=== PATIENT | female | born 1985 | race Caucasian/White ===

== ENCOUNTER 2016-07-07 22:04 | Emergency (ER) | payer OTHER ==
[2016-07-07] MEDS ORDERED: SODIUM CHLORIDE 0.9% 1,000 ML IV STA (22:34)
[2016-07-07 22:59] LABS: Appearance,Urine Clear (Clear); Bilirubin,Urine Negative (Negative); Glucose,Urine (UA) Negative (Negative); Ketones,Urine Negative (Negative); Leukocyte Esterase,Urine Negative (Negative); Nitrite,Urine Negative (Negative); PH, Urine 6.5 (5.0-8.0); Protein,Urine Negative (Negative); Specific Gravity,Urine 1.002 (1.001-1.035); UA Billing (MACRO vs. MICRO) CHEM; Urobilinogen,Urine <2.0 mg/dL (<2.0)
[2016-07-07 23:05] LABS: ALT 24 U/L (9-52); AST 12 U/L (14-36); Alkaline Phosphatase 91 U/L (38-126); Anion Gap 10 mmol/L; Blood Urea Nitrogen 8 mg/dL (7-17); Carbon Dioxide 22 mmol/L (22-30); Chloride 106 mmol/L (98-107); Glucose 98 mg/dL (74-99); Non-African American GFR(MDRD) >60 (>60 ml/min/1.73 sqM); Potassium 3.6 mmol/L (3.5-5.1); Sodium 138 mmol/L (137-145); Total Bilirubin 0.8 mg/dL (0.2-1.3); Total Protein 7.4 g/dL (6.3-8.2)
--- NOTE | 2016-07-07 23:05 | XR ---
EXAM: XR Chest, 2 Views CLINICAL HISTORY: Reason: syncope TECHNIQUE: Frontal and lateral views of the chest. COMPARISON: None available FINDINGS: Lungs: Lungs are clear. Pleural space: No evidence of pleural effusion or pneumothorax. Heart: Heart size is within normal limits. Mediastinum: Mediastinal structures are within normal limits. Bones/joints: Image bony thorax is unremarkable. IMPRESSION: No evidence of active chest disease.
[2016-07-07 23:09] LABS: Glucose,Whole Blood 91 mg/dL (75-99)
[2016-07-07 23:13] LABS: Partial Thromboplastin Time 25.4 sec (22.0-30.0); Prothrombin Time 10.2 sec (9.0-12.0)
--- NOTE | 2016-07-07 23:16 | ED ---
General Adult HPI - General Chief complaint: Syncope Stated complaint: Syncope Time Seen by Provider: 07/07/16 22:10 Source: EMS, RN notes reviewed Mode of arrival: EMS Limitations: no limitations - History of Present Illness Initial comments: Patient is a 30-year-old female presents emergency room for evaluation of possible syncopal episode. Patient states she was diagnosed with strep throat yesterday. Patient states she was placed on amoxicillin. Patient states took her first dose of amoxicillin today. Patient states she's had amoxicillin in the past had no reaction to it. Patient states the last thing she remembers was giving her son a bottle and waking up on the bed. Patient's boyfriend states that he was trying to get a hold of patient and did not hear from her for a half hour. Patient's boyfriend states he came over and patient was on the bed asleep. Patient's boyfriend states he tried to wake patient up and was unable to until he wipped her with a wet cloth which woke her up. Patient's boyfriend and states that he called EMS and patient began to slightly seize for about 1 minute. Patient states that she had an incident of blacking out and seizing about 10 years ago when she was hypoglycemic. Patient states she has a history of hypoglycemia. Patient states because she has not been feeling that well, she has not been eating a lot today. Patient denies nausea or vomiting. Patient states she is having 7 out of 10 headache. Patient denies changes in vision. Patient denies chest pain or shortness of breath. Patient states she is having severe throat pain. Patient denies fevers or chills. Patient denies abdominal pain. - Related Data Home Medications Medication Instructions Recorded Confirmed Dextroamphetamine/Amphetamine 20 mg PO BID 04/21/15 07/07/16 [Adderall] Sertraline [Zoloft] 100 mg PO DAILY 04/21/15 07/07/16 Levothyroxine Sodium [Synthroid] 50 mcg PO DAILY 12/19/15 07/07/16 Amoxicillin 1,000 mg PO DAILY 07/07/16 07/07/16 Allergies Allergy/AdvReac Type Severity Reaction Status Date / Time No Known Allergies Allergy Verified 07/07/16 22:26 Review of Systems ROS Statement: Those systems with pertinent positive or pertinent negative responses have been documented in the HPI. ROS Other: All systems not noted in ROS Statement are negative. Past Medical History Past Medical History: Thyroid Disorder Additional Past Medical History / Comment(s): hypoglycema. History of Any Multi-Drug Resistant Organisms: None Reported Past Surgical History: Section Past Psychological History: ADD/ADHD, Bipolar, Depression Smoking Status: Former smoker Past Alcohol Use History: Occasional Past Drug Use History: None Reported - Past Family History Father Family Medical History: Diabetes Mellitus General Exam - General Exam Comments Initial Comments: Sitting in exam room, no acute distress. Limitations: no limitations General appearance: alert, in no apparent distress Head exam: Present: atraumatic, normocephalic, normal inspection Eye exam: Present: normal appearance Expanded Mouth exam: Present: normal external inspection Teeth exam: Present: normal inspection Throat exam: tonsillar erythema, tonsillar exudate Neck exam: Present: normal inspection Respiratory exam: Present: normal lung sounds bilaterally. Absent: respiratory distress Cardiovascular Exam: Present: regular rate, normal rhythm, normal heart sounds Extremities exam: Present: normal inspection Back exam: Present: normal inspection Neurological exam: Present: alert, oriented X3, CN II-XII intact, normal gait Expanded Neurological exam: Present: inattentive Patient oriented to: Present: person, place, time Speech: Present: fluid speech Cranial nerves: EOM's Intact: Normal, Facial Sensation: Normal Sensory exam: Upper Extremity Light Touch: Normal, Lower Extremity Light Touch: Normal Motor strength exam: RUE: 5, LUE: 5, RLE: 5, LLE: 5 Eye Response: (4) open spontaneously Motor Response: (6) obeys commands Verbal Response: (5) oriented Psychiatric exam: Present: normal affect, normal mood Skin exam: Present: warm, dry, intact, normal color. Absent: rash Course Vital Signs 07/07/16 07/08/16 22:12 01:04 Temperature 98.5 F 99.2 F Pulse Rate 88 98 Respiratory 14 18 Rate Blood Pressure 115/55 101/53 O2 Sat by Pulse 96 96 Oximetry EKG Findings - EKG Comments: EKG Findings:: Normal sinus rhythm, ventricular rate 90 bpm, MA interval 154 ms , QRS duration 88 ms, QT/QTC 364/445 ms Medical Decision Making - Medical Decision Making Patient is a 30-year-old female presents emergency room for evaluation. Patient does appear to have elevated WBC. Patient was recently diagnosed with strep throat yesterday and is currently on antibiotics. Patient is afebrile. Other labs show no concerning findings. Patient states she is feeling better. Will discharge patient home and have her follow-up with her primary care provider. Patient states she has someone to watch her overnight. Patient states she understands everything that was discussed with her. Return parameters discussed. Case discussed with Dr. Gore. - Lab Data Result diagrams: 07/07/16 22:45 07/07/16 22:45 Lab Results 07/07/16 07/07/16 07/07/16 Range/Units 22:45 22:45 22:45 WBC 27.1 H* (3.8-10.6) k/uL RBC 4.69 (3.80-5.40) m/uL Hgb 13.2 (11.4-16.0) gm/dL Hct 40.2 (34.0-46.0) % MCV 85.6 (80.0-100.0) fL MCH 28.1 (25.0-35.0) pg MCHC 32.8 (31.0-37.0) g/dL RDW 13.4 (11.5-15.5) % Plt Count 277 (150-450) k/uL PT (9.0-12.0) sec INR (<1.1) APTT (22.0-30.0) sec Sodium 138 (137-145) mmol/L Potassium 3.6 (3.5-5.1) mmol/L Chloride 106 (98-107) mmol/L Carbon Dioxide 22 (22-30) mmol/L Anion Gap 10 mmol/L BUN 8 (7-17) mg/dL Creatinine 0.52 (0.52-1.04) mg/dL Est GFR (MDRD) Af Amer >60 (>60 ml/min/1.73 sqM) Est GFR (MDRD) Non-Af >60 (>60 ml/min/1.73 sqM) Glucose 98 (74-99) mg/dL POC Glucose (mg/dL) (75-99) mg/dL POC Glu Personal Counselor ID Calcium 9.0 (8.4-10.2) mg/dL Total Bilirubin 0.8 (0.2-1.3) mg/dL AST 12 L (14-36) U/L ALT 24 (9-52) U/L Alkaline Phosphatase 91 (38-126) U/L Total Creatine Kinase 33 (30-135) U/L CK-MB (CK-2) <0.2 (0.0-2.4) ng/mL CK-MB (CK-2) Rel Index Troponin I <0.012 (0.000-0.034) ng/mL Total Protein 7.4 (6.3-8.2) g/dL Albumin 3.8 (3.5-5.0) g/dL Urine Color Urine Appearance (Clear) Urine pH (5.0-8.0) Ur Specific [place] (1.001-1.035) Urine Protein (Negative) Urine Glucose (UA) (Negative) Urine Ketones (Negative) Urine Blood (Negative) Urine Nitrite (Negative) Urine Bilirubin (Negative) Urine Urobilinogen (<2.0) mg/dL Ur Leukocyte Esterase (Negative) 07/07/16 07/07/16 07/07/16 Range/Units 22:45 22:45 23:08 WBC (3.8-10.6) k/uL RBC (3.80-5.40) m/uL Hgb (11.4-16.0) gm/dL Hct (34.0-46.0) % MCV (80.0-100.0) fL MCH (25.0-35.0) pg MCHC (31.0-37.0) g/dL RDW (11.5-15.5) % Plt Count (150-450) k/uL PT 10.2 (9.0-12.0) sec INR 1.0 (<1.1) APTT 25.4 (22.0-30.0) sec Sodium (137-145) mmol/L Potassium (3.5-5.1) mmol/L Chloride (98-107) mmol/L Carbon Dioxide (22-30) mmol/L Anion Gap mmol/L BUN (7-17) mg/dL Creatinine (0.52-1.04) mg/dL Est GFR (MDRD) Af Amer (>60 ml/min/1.73 sqM) Est GFR (MDRD) Non-Af (>60 ml/min/1.73 sqM) Glucose (74-99) mg/dL POC Glucose (mg/dL) 91 (75-99) mg/dL POC Glu Personal Counselor ID Christiane Lincoln Calcium (8.4-10.2) mg/dL Total Bilirubin (0.2-1.3) mg/dL AST (14-36) U/L ALT (9-52) U/L Alkaline Phosphatase (38-126) U/L Total Creatine Kinase (30-135) U/L CK-MB (CK-2) (0.0-2.4) ng/mL CK-MB (CK-2) Rel Index Troponin I (0.000-0.034) ng/mL Total Protein (6.3-8.2) g/dL Albumin (3.5-5.0) g/dL Urine Color Colorless Urine Appearance Clear (Clear) Urine pH 6.5 (5.0-8.0) Ur Specific [place] 1.002 (1.001-1.035) Urine Protein Negative (Negative) Urine Glucose (UA) Negative (Negative) Urine Ketones Negative (Negative) Urine Blood Negative (Negative) Urine Nitrite Negative (Negative) Urine Bilirubin Negative (Negative) Urine Urobilinogen <2.0 (<2.0) mg/dL Ur Leukocyte Esterase Negative (Negative) - Radiology Data Radiology results: report reviewed, image reviewed Disposition Clinical Impression: Leukocytosis, Strep throat, Fainting spell Disposition: HOME SELF-CARE Condition: Good Instructions: Strep Throat (ED) Additional Instructions: Continue taking antibiotics as directed. Saltwater gargles. Take Tylenol or Motrin as needed for pain/fever. Please follow up with primary care provider in 1-2 days. If any new symptom arises or symptoms worsen, return to ER as soon as possible. Referrals: Khari Macario MD [Primary Care Provider] - 1-2 days Time of Disposition: 00:51
[2016-07-07 23:24] LABS: Creatine Kinase 33 U/L (30-135)
[2016-07-07 23:37] LABS: Creatine Kinase MB <0.2 ng/mL (0.0-2.4); Troponin I <0.012 ng/mL (0.000-0.034)
[2016-07-08 00:15] LABS: CHCM 32.8; HCT 40.2 % (34.0-46.0); HGB 13.2 gm/dL (11.4-16.0); MCH 28.1 pg (25.0-35.0); MCHC 32.8 g/dL (31.0-37.0); MCV 85.6 fL (80.0-100.0); Mean Platelet Volume 7.4; RBC 4.69 m/uL (3.80-5.40); RDW 13.4 % (11.5-15.5); WBC (Perox) 26.97
[2016-07-08 00:28] LABS: WBC 27.1 k/uL (3.8-10.6)
[2016-07-08 01:05] VITALS: BP 101/53; PULSE 98; RESP 18; TEMP 99.2
[2016-07-08 02:54] LABS: Add Differential Manual Differential
[2016-07-08 02:59] LABS: Band Neutrophils % 17.5 %; Metamyelocytes % 0.5 %; Nucleated Red Blood Cells 0 /100 WBC (0-0); Total Cells Counted 200
[2016-07-08 03:00] LABS: Toxic Granulation Present
[2016-07-08 03:01] LABS: Toxic Vacuolation Present
[2016-07-08 03:02] LABS: Polychromasia Present
== END 2016-07-08 01:05 | disposition home or self-care (01) ==
LOC: EC 22:04
DX: D72.829 Elevated white blood cell count, unspecified (principal); R55 Syncope and collapse; E07.9 Disorder of thyroid, unspecified; F90.9 Attention-deficit hyperactivity disorder, unspecified type; F31.9 Bipolar disorder, unspecified; Z87.891 Personal history of nicotine dependence; Z79.899 Other long term (current) drug therapy
CPT/HCPCS: 36415; 71020; 80053; 81003; 82550; 82553; 84484; 85025; 85610; 85730; 93005; 96360; 96361; 99285

== ENCOUNTER 2016-10-19 17:32 | Emergency (ER) | payer OTHER ==
[2016-10-19 17:45] VITALS: RESP 20
--- NOTE | 2016-10-19 18:06 | ED ---
General Adult HPI - General Chief complaint: Psychiatric Symptoms Stated complaint: sleepless for 4 days Time Seen by Provider: 10/19/16 17:42 Source: patient, RN notes reviewed Mode of arrival: EMS Limitations: no limitations - History of Present Illness Initial comments: 31 yo female presents to the ER with cc depression and suicidal ideation. Patient states she's been having increased depression. Patient states for the last month or so her symptoms have been worsening. Patient states about a week ago her doctor started her on Abilify and she feels as if her depression is even worsening but not she is also having suicidal ideation. Patient denies any plan. Patient states that she does not think that she actually hurt herself but she is having thoughts which concerned her. Patient states she is also having racing thoughts that keeping her up at night she's been unable to sleep for the past 3 or 4 nights. Patient states that she is not currently having any other. Patient denies any other complaints.Patient denies any recent fever, chills, shortness of breath, chest pain, back pain, abdominal pain , nausea vomiting, numbness or tingling, dysuria or hematuria, constipation or diarrhea, headaches or visual changes, or any other current symptoms. - Related Data Home Medications Medication Instructions Recorded Confirmed Levothyroxine Sodium [Synthroid] 50 mcg PO DAILY 12/19/15 10/19/16 ARIPiprazole [Abilify] 5 mg PO DAILY 10/19/16 10/19/16 Dextroamphetamine/Amphetamine 20 mg PO BID 10/19/16 10/19/16 [Adderall] Norgestimate-Ethinyl Estradiol 1 tab PO DAILY 10/19/16 10/19/16 [Ortho Tri-Cyclen 28 Tablet] Sertraline [Zoloft] 100 mg PO BID 10/19/16 10/19/16 Allergies Allergy/AdvReac Type Severity Reaction Status Date / Time No Known Allergies Allergy Verified 10/19/16 18:22 Review of Systems ROS Statement: Those systems with pertinent positive or pertinent negative responses have been documented in the HPI. ROS Other: All systems not noted in ROS Statement are negative. Past Medical History Past Medical History: Thyroid Disorder Additional Past Medical History / Comment(s): hypoglycema. History of Any Multi-Drug Resistant Organisms: None Reported Past Surgical History: Section Past Psychological History: ADD/ADHD, Bipolar, Depression Smoking Status: Current every day smoker Past Alcohol Use History: Occasional Past Drug Use History: Marijuana - Past Family History Father Family Medical History: Diabetes Mellitus General Exam Limitations: no limitations General appearance: alert Head exam: Present: atraumatic, normocephalic, normal inspection ENT exam: Present: normal exam, mucous membranes moist Neck exam: Present: normal inspection. Absent: tenderness, meningismus, lymphadenopathy Respiratory exam: Present: normal lung sounds bilaterally. Absent: respiratory distress, wheezes, rales, rhonchi, stridor Cardiovascular Exam: Present: regular rate, normal rhythm, normal heart sounds. Absent: systolic murmur, diastolic murmur, rubs, gallop, clicks Neurological exam: Present: alert, oriented X3 Skin exam: Present: warm, dry, intact, normal color. Absent: rash Course Vital Signs 10/19/16 17:42 Temperature 97.6 F Pulse Rate 93 Respiratory 20 Rate Blood Pressure 136/80 O2 Sat by Pulse 99 Oximetry Medical Decision Making - Medical Decision Making 31 female presents to the emergency department with a chief complaint of suicidal ideation and depression. At this time the patient does not appear to be suffering from any acute medical. This time the patient is cleared to be evaluated by psychiatry. At this time patient was evaluated. They did do a medication adjustment for the patient per the psychiatrist's request to cut the Abilify in half and take it in the morning. At this time the patient is reviewed this plan she does contract to safety questions have been answered. She will be discharged. - Lab Data Lab Results 10/19/16 Range/Units 18:30 Urine Opiates Screen Not Detected (NotDetected) Ur Oxycodone Screen Not Detected (NotDetected) Urine Methadone Screen Not Detected (NotDetected) Ur Propoxyphene Screen Not Detected (NotDetected) Ur Barbiturates Screen Not Detected (NotDetected) U Tricyclic Antidepress Not Detected (NotDetected) Ur Phencyclidine Scrn Not Detected (NotDetected) Ur Amphetamines Screen Detected H (NotDetected) U Methamphetamines Scrn Not Detected (NotDetected) U Benzodiazepines Scrn Not Detected (NotDetected) Urine Cocaine Screen Not Detected (NotDetected) U Marijuana (THC) Screen Detected H (NotDetected) Disposition Clinical Impression: Depression Disposition: HOME SELF-CARE Condition: Stable Instructions: Depression (ED) Additional Instructions: Please use medication as discussed. Please follow up with family doctor if symptoms have not improved over the next two days. Please return to the emergency room if your symptoms increase or worsen or for any other concerns. Take half your prescribed dose in the morning. If he developed any suicidal or homicidal ideation please return to the emergency department immediately. Referrals: Khari Macario MD [Primary Care Provider] - 1-2 days Time of Disposition: 20:24
[2016-10-19 20:40] VITALS: BP 121/50; PULSE 74; TEMP 98.5
== END 2016-10-19 20:40 | disposition home or self-care (01) ==
LOC: EC 17:32
DX: F31.9 Bipolar disorder, unspecified (principal); R45.851 Suicidal ideations; F90.9 Attention-deficit hyperactivity disorder, unspecified type; E07.9 Disorder of thyroid, unspecified; F17.200 Nicotine dependence, unspecified, uncomplicated; Z79.3 Long term (current) use of hormonal contraceptives; Z79.899 Other long term (current) drug therapy
CPT/HCPCS: 80306; 82075; 99284

== ENCOUNTER 2016-10-27 12:37 | Emergency (ER) | payer OTHER ==
[2016-10-27 12:42] VITALS: BP 134/80; PULSE 98; RESP 18; TEMP 97.9
[2016-10-27] MEDS ORDERED: methylPREDNISolone SOD SUCCI 125 MG/2 ML VIAL IM STA (12:53)
[2016-10-27] MEDS ORDERED: KETOROLAC 60 MG/2 ML VIAL IM STA (12:53)
[2016-10-27] MEDS ORDERED: ORPHENADRINE 30 MG/ML 2 ML VIAL IM STA (12:53)
--- NOTE | 2016-10-27 12:58 | ED ---
General Adult HPI - General Chief complaint: Extremity Problem,Nontraumatic Stated complaint: ankle injury Time Seen by Provider: 10/27/16 12:45 Source: patient, RN notes reviewed Mode of arrival: wheelchair Limitations: no limitations - History of Present Illness Initial comments: 31 yo female presents to the ER with cc of shooting pain down left leg and numbness tingling sensation to the left foot. Patient states that this started this might just kept getting worse. Patient states she has had this pain to the left foot and leg and she was concerned. Patient states that she does have a history of low back pain and bulging disc. Patient denies any falls traumas or injuries. Patient denies any other symptoms. Patient has a loss by bladder function or any saddle anesthesia. Patient states has had some back pain to the lower area on the left. Patient denies any recent fever, chills, shortness of breath, chest pain, abdominal pain, nausea vomiting, dysuria or hematuria, constipation or diarrhea, headaches or visual changes, or any other current symptoms. - Related Data Home Medications Medication Instructions Recorded Confirmed Levothyroxine Sodium [Synthroid] 50 mcg PO DAILY 12/19/15 10/19/16 ARIPiprazole [Abilify] 5 mg PO DAILY 10/19/16 10/19/16 Dextroamphetamine/Amphetamine 20 mg PO BID 10/19/16 10/19/16 [Adderall] Norgestimate-Ethinyl Estradiol 1 tab PO DAILY 10/19/16 10/19/16 [Ortho Tri-Cyclen 28 Tablet] Sertraline [Zoloft] 100 mg PO BID 10/19/16 10/19/16 Previous Rx's Medication Instructions Recorded Ibuprofen [Motrin] 600 mg PO Q6HR PRN #20 tab 10/27/16 Orphenadrine [Norflex] 100 mg PO Q12H #10 tablet.er 10/27/16 predniSONE 50 mg PO DAILY #5 tab 10/27/16 Allergies Allergy/AdvReac Type Severity Reaction Status Date / Time No Known Allergies Allergy Verified 10/27/16 12:42 Review of Systems ROS Statement: Those systems with pertinent positive or pertinent negative responses have been documented in the HPI. ROS Other: All systems not noted in ROS Statement are negative. Past Medical History Past Medical History: Thyroid Disorder Additional Past Medical History / Comment(s): hypoglycema. History of Any Multi-Drug Resistant Organisms: None Reported Past Surgical History: Section Past Psychological History: ADD/ADHD, Bipolar, Depression Smoking Status: Current every day smoker Past Alcohol Use History: Occasional Past Drug Use History: Marijuana - Past Family History Father Family Medical History: Diabetes Mellitus General Exam Limitations: no limitations General appearance: alert, in no apparent distress Head exam: Present: atraumatic, normocephalic, normal inspection Neck exam: Present: normal inspection. Absent: tenderness, meningismus, lymphadenopathy Respiratory exam: Present: normal lung sounds bilaterally. Absent: respiratory distress, wheezes, rales, rhonchi, stridor Cardiovascular Exam: Present: regular rate, normal rhythm, normal heart sounds. Absent: systolic murmur, diastolic murmur, rubs, gallop, clicks Back exam: Present: normal inspection, full ROM, tenderness, paraspinal tenderness (left sdied). Absent: rash noted Expanded Back exam: Absent: saddle anesthesia Back exam: Positive Straight Leg Raise: Left Neurological exam: Present: alert, oriented X3 Psychiatric exam: Present: normal affect, normal mood Skin exam: Present: warm, dry, intact, normal color. Absent: rash Course Vital Signs 10/27/16 12:41 Temperature 97.9 F Pulse Rate 98 Respiratory 18 Rate Blood Pressure 134/80 O2 Sat by Pulse 97 Oximetry Medical Decision Making - Medical Decision Making 31-year-old female presents emergency Department chief complaint of back pain associated with numbness and tingling to the left foot with a positive straight leg raise. at this time CT has been reviewed. all questions have been answered. pt will be discharged. given follow up to ortho for continued care. Disposition Clinical Impression: Bulging disc, Left leg paresthesias Disposition: HOME SELF-CARE Condition: Stable Instructions: Lower Back Exercises (ED), Low Back Strain (ED) Additional Instructions: Please use medication as discussed. Please follow up with family doctor if symptoms have not improved over the next two days. Please return to the emergency room if your symptoms increase or worsen or for any other concerns. Prescriptions: Ibuprofen [Motrin] 600 mg PO Q6HR PRN #20 tab PRN Reason: Pain Orphenadrine [Norflex] 100 mg PO Q12H #10 tablet.er predniSONE 50 mg PO DAILY #5 tab Referrals: Khari Macario MD [Primary Care Provider] - 1-2 days Solo Walsh DO [Doctor of Osteopathic Medicine] - 1-2 days Time of Disposition: 13:33
--- NOTE | 2016-10-27 13:25 | CT ---
EXAMINATION TYPE: CT lumbar spine wo con DATE OF EXAM: 10/27/2016 COMPARISON: NONE HISTORY: Left ankle swelling. Back pain for [address] DLP: 972 mGycm CONTRAST: None TECHNIQUE: CT of the lumbar spine is performed on a spiral scan at 3 mm thick sections. Reconstructed images are performed in the coronal and sagittal planes. FINDINGS: Vertebral body alignment is normal. No focal disc herniations are evident. Mild disc bulge with anterior thecal sac contact is present L4-5. Some posterior disc space narrowing is present L5-S 1. No spinal canal stenosis or neural foraminal stenosis present. Remaining disc height and vertebral body heights are preserved. IMPRESSION: 1. Minimal disc bulge L4-5. 2. Very mild posterior disc space narrowing L5-S1
== END 2016-10-27 13:41 | disposition home or self-care (01) ==
LOC: EC 12:37
DX: M51.26 Other intervertebral disc displacement, lumbar region (principal); R20.2 Paresthesia of skin; E07.9 Disorder of thyroid, unspecified; F31.9 Bipolar disorder, unspecified; F90.9 Attention-deficit hyperactivity disorder, unspecified type; F17.200 Nicotine dependence, unspecified, uncomplicated; Z79.3 Long term (current) use of hormonal contraceptives; Z79.899 Other long term (current) drug therapy
CPT/HCPCS: 99283; 96372 ×3; 72131; J2360; J2930; J1885

== ENCOUNTER 2016-11-16 12:44 | Emergency (ER) | payer OTHER ==
[2016-11-16 13:08] LABS: Glucose,Whole Blood 83 mg/dL (75-99)
[2016-11-16] MEDS ORDERED: diphenhydrAMINE 50 MG/ML 1 ML VIAL IVP STA (13:14)
--- NOTE | 2016-11-16 13:26 | ED ---
Neuro HPI - General Stated Complaint: ankle swelling Time Seen by Provider: 11/16/16 13:14 - History of Present Illness Is the patient presenting with stroke symptoms?: Yes Last Known Well Date: 11/16/16 Last Known Well Time: 13:00 Initial Comments: This is a 31-year-old female to history of depression and smoking history who presents emergency department for the chief complaint of ankle swelling however just as she was getting wheeled back to the emergency department she developed a left-sided facial droop. Last known normal was around 1 PM. She states that the left side of her face feels "funny". She states that it feels numb. She denies history of stroke. Denies any headache. She states that she did start a new medications, Abilify, 2 weeks ago however has not had any adverse reactions. She denies taking any other new medications today. She admits to feeling generally fatigued and having some left-sided lower extremity weakness as well. She states that her left leg also feels numb area she denies any history of injury. No other complaints. - Related Data Home Medications: Home Medications Medication Instructions Recorded Confirmed Levothyroxine Sodium [Synthroid] 50 mcg PO DAILY 12/19/15 10/19/16 ARIPiprazole [Abilify] 5 mg PO DAILY 10/19/16 10/19/16 Dextroamphetamine/Amphetamine 20 mg PO BID 10/19/16 10/19/16 [Adderall] Norgestimate-Ethinyl Estradiol 1 tab PO DAILY 10/19/16 10/19/16 [Ortho Tri-Cyclen 28 Tablet] Sertraline [Zoloft] 100 mg PO BID 10/19/16 10/19/16 Previous Rx's Medication Instructions Recorded Ibuprofen [Motrin] 600 mg PO Q6HR PRN #20 tab 10/27/16 Orphenadrine [Norflex] 100 mg PO Q12H #10 tablet.er 10/27/16 predniSONE 50 mg PO DAILY #5 tab 10/27/16 Allergies/Adverse Reactions: Allergies Allergy/AdvReac Type Severity Reaction Status Date / Time No Known Allergies Allergy Verified 10/27/16 12:42 Review of Systems ROS Statement: Those systems with pertinent positive or pertinent negative responses have been documented in the HPI. ROS Other: All systems not noted in ROS Statement are negative. General Exam - General Exam Comments Initial Comments: Constitutional: Awake alert Appears comfortable Head: Normocephalic atraumatic Eyes: no conjunctival injection No scleral icterus EOMI Neck: No JVD Supple Heart: Regular rate rhythm normal S1-S2 no murmurs Lungs: Clear to auscultation bilaterally No wheezing No rales Abdomen: Soft nondistended nontender Extremities: Non edematous DP pulses intact Radial pulses intact Neuro: A&Ox3 the patient has a noticeable left-sided facial droop however when palpating over the left jaw it feels like the muscle is twitching. At times the facial droop seems to dissipate. She is able to smile and it seems symmetrical. Her tongue is deviated to the left however she is able to move it to the right. Extract the muscles are intact. Visual baeza are intact. 5 out of 5 strength in upper extremities. She has 4-5 strength in left lower extremity and 5 out of 5 strength in right lower chrie. She claims to have left lower extremities decreased sensation when compared to the right. Also has decreased sensation along the left jaw. Psych: Appropriate mood and affect Stroke MDM - Lab Data Result diagrams: 11/16/16 13:21 11/16/16 13:21 Lab Results 11/16/16 11/16/16 11/16/16 Range/Units 13:05 13:21 13:21 WBC 11.3 H (3.8-10.6) k/uL RBC 4.68 (3.80-5.40) m/uL Hgb 13.6 (11.4-16.0) gm/dL Hct 39.8 (34.0-46.0) % MCV 85.1 (80.0-100.0) fL MCH 29.0 (25.0-35.0) pg MCHC 34.1 (31.0-37.0) g/dL RDW 13.0 (11.5-15.5) % Plt Count 305 (150-450) k/uL Neutrophils % 65 % Lymphocytes % 28 % Monocytes % 4 % Eosinophils % 2 % Basophils % 0 % Neutrophils # 7.3 (1.3-7.7) k/uL Lymphocytes # 3.1 (1.0-4.8) k/uL Monocytes # 0.5 (0-1.0) k/uL Eosinophils # 0.2 (0-0.7) k/uL Basophils # 0.0 (0-0.2) k/uL PT (9.0-12.0) sec INR (<1.2) APTT (22.0-30.0) sec Sodium (137-145) mmol/L Potassium (3.5-5.1) mmol/L Chloride (98-107) mmol/L Carbon Dioxide (22-30) mmol/L Anion Gap mmol/L BUN (7-17) mg/dL Creatinine (0.52-1.04) mg/dL Est GFR (MDRD) Af Amer (>60 ml/min/1.73 sqM) Est GFR (MDRD) Non-Af (>60 ml/min/1.73 sqM) Glucose (74-99) mg/dL POC Glucose (mg/dL) 83 (75-99) mg/dL POC Glu Property Appraiser ID Marielos Arteaga Calcium (8.4-10.2) mg/dL Total Bilirubin (0.2-1.3) mg/dL AST (14-36) U/L ALT (9-52) U/L Alkaline Phosphatase (38-126) U/L Creatine Kinase (30-135) U/L CK-MB (CK-2) 0.8 (0.0-2.4) ng/mL Troponin I (0.000-0.034) ng/mL NT-Pro-B Natriuret Pep pg/mL Total Protein (6.3-8.2) g/dL Albumin (3.5-5.0) g/dL HCG, Quant mIU/mL 11/16/16 11/16/16 11/16/16 Range/Units 13:21 13:21 13:21 WBC (3.8-10.6) k/uL RBC (3.80-5.40) m/uL Hgb (11.4-16.0) gm/dL Hct (34.0-46.0) % MCV (80.0-100.0) fL MCH (25.0-35.0) pg MCHC (31.0-37.0) g/dL RDW (11.5-15.5) % Plt Count (150-450) k/uL Neutrophils % % Lymphocytes % % Monocytes % % Eosinophils % % Basophils % % Neutrophils # (1.3-7.7) k/uL Lymphocytes # (1.0-4.8) k/uL Monocytes # (0-1.0) k/uL Eosinophils # (0-0.7) k/uL Basophils # (0-0.2) k/uL PT 9.3 (9.0-12.0) sec INR 0.9 (<1.2) APTT 22.2 (22.0-30.0) sec Sodium 141 (137-145) mmol/L Potassium 4.0 (3.5-5.1) mmol/L Chloride 107 (98-107) mmol/L Carbon Dioxide 25 (22-30) mmol/L Anion Gap 9 mmol/L BUN 10 (7-17) mg/dL Creatinine 0.60 (0.52-1.04) mg/dL Est GFR (MDRD) Af Amer >60 (>60 ml/min/1.73 sqM) Est GFR (MDRD) Non-Af >60 (>60 ml/min/1.73 sqM) Glucose 77 (74-99) mg/dL POC Glucose (mg/dL) (75-99) mg/dL POC Glu Property Appraiser ID Calcium 9.2 (8.4-10.2) mg/dL Total Bilirubin 0.3 (0.2-1.3) mg/dL AST 15 (14-36) U/L ALT 29 (9-52) U/L Alkaline Phosphatase 89 (38-126) U/L Creatine Kinase (30-135) U/L CK-MB (CK-2) (0.0-2.4) ng/mL Troponin I (0.000-0.034) ng/mL NT-Pro-B Natriuret Pep 36 pg/mL Total Protein 7.8 (6.3-8.2) g/dL Albumin 4.1 (3.5-5.0) g/dL HCG, Quant <2.4 mIU/mL 11/16/16 11/16/16 Range/Units 13:38 13:38 WBC (3.8-10.6) k/uL RBC (3.80-5.40) m/uL Hgb (11.4-16.0) gm/dL Hct (34.0-46.0) % MCV (80.0-100.0) fL MCH (25.0-35.0) pg MCHC (31.0-37.0) g/dL RDW (11.5-15.5) % Plt Count (150-450) k/uL Neutrophils % % Lymphocytes % % Monocytes % % Eosinophils % % Basophils % % Neutrophils # (1.3-7.7) k/uL Lymphocytes # (1.0-4.8) k/uL Monocytes # (0-1.0) k/uL Eosinophils # (0-0.7) k/uL Basophils # (0-0.2) k/uL PT (9.0-12.0) sec INR (<1.2) APTT (22.0-30.0) sec Sodium (137-145) mmol/L Potassium (3.5-5.1) mmol/L Chloride (98-107) mmol/L Carbon Dioxide (22-30) mmol/L Anion Gap mmol/L BUN (7-17) mg/dL Creatinine (0.52-1.04) mg/dL Est GFR (MDRD) Af Amer (>60 ml/min/1.73 sqM) Est GFR (MDRD) Non-Af (>60 ml/min/1.73 sqM) Glucose (74-99) mg/dL POC Glucose (mg/dL) (75-99) mg/dL POC Glu Property Appraiser ID Calcium (8.4-10.2) mg/dL Total Bilirubin (0.2-1.3) mg/dL AST (14-36) U/L ALT (9-52) U/L Alkaline Phosphatase (38-126) U/L Creatine Kinase 71 (30-135) U/L CK-MB (CK-2) (0.0-2.4) ng/mL Troponin I <0.012 (0.000-0.034) ng/mL NT-Pro-B Natriuret Pep pg/mL Total Protein (6.3-8.2) g/dL Albumin (3.5-5.0) g/dL HCG, Quant mIU/mL - NIH Stroke Scale 1a. Level of Consciousness: (0) alert 1b. LOC Questions: (0) answers correctly 1c. LOC Commands: (0) performs tasks correctly 2. Best Gaze: (0) normal 3. Visual: (0) no visual loss 4. Facial Palsy: (1) minor paralysis 5a. Motor Arm Left: (0) no drift 5b. Motor Arm Right: (0) no drift 6a. Motor Leg Left: (1) drift 6b. Motor Leg Right: (0) no drift 7. Limb Ataxia: (0) absent 8. Sensory: (1) mild/moderate sensory loss 9. Best Language: (0) no aphasia 10. Dysarthria: (1) mild/moderate dysarthria 11. Extinction/Inattention: (0) no abnormality Past Medical History Past Medical History: Thyroid Disorder Additional Past Medical History / Comment(s): hypoglycema. History of Any Multi-Drug Resistant Organisms: None Reported Past Surgical History: Section Past Psychological History: ADD/ADHD, Bipolar, Depression Smoking Status: Current every day smoker Past Alcohol Use History: Occasional Past Drug Use History: Marijuana - Past Family History Father Family Medical History: Diabetes Mellitus Course Vital Signs 11/16/16 13:34 Temperature 97.7 F Pulse Rate 97 Respiratory 18 Rate Blood Pressure 138/78 O2 Sat by Pulse 97 Oximetry - Reevaluation(s) Reevaluation #1: 11/16/16 13:37 EKG showing normal sinus rhythm with a rate of 90. No ST segment changes or T- wave inversions. QTC is 450. Other intervals normal. No ectopy. Reevaluation #2: 11/16/16 13:40 I spoke with the stroke neurologist who recommended that the patient get a CTA. Patient already went for CT however we'll send her back down for CTA. Reevaluation #3: 11/16/16 14:08 Currently awaiting neurologist evaluation through stroke robot. Reevaluation #4: 11/16/16 14:22 Patient evaluated by the stroke neurologist Dr. Martinez who recommends TPA and transfer. NIH at this time is unchanged at 4. Reevaluation #5: 11/16/16 14:52 TPA bolus given. INH is unchanged. Patient accepted to [facility] by Dr. Martinez. Patient currently stable for transfer. Critical Care Time Critical Care Time: Yes Total Critical Care Time: 35 Critical Care Time: Critical care time spent examining the patient and reviewing old records. Ordering lab work and imaging. Reviewing the results of lab work and imaging. Speaking with the stroke neurologist coming up with the plan. Reexamination of the patient. Rediscussion with the stroke neurologist and neurologic monitoring throughout her ED stay. Also arranging transfer of the patient. Disposition Clinical Impression: CVA (cerebral vascular accident) Disposition: OTHER INSTITUTION NOT DEFINED Condition: Critical Referrals: Khari Macario MD [Primary Care Provider] - 1-2 days - Out of Hospital Transfer - Req. Specs Out of Hospital Transfer - Requested Specifics: Neurological ICU (Praful Baez)
[2016-11-16] MEDS ORDERED: SODIUM CHLORIDE 0.9% 1,000 ML IV ONE (13:32)
[2016-11-16] MEDS ORDERED: RX INFO: IV CONTRAST WAS GIVEN 1 EACH MISC MISCELLANE PRN (13:32)
[2016-11-16 13:42] VITALS: BP 138/78; PULSE 97; RESP 18; TEMP 97.7
[2016-11-16 13:55] LABS: Basophils % (A) 0 %; CH 27.9; CHCM 32.9; Eosinophils # (A) 0.2 k/uL (0-0.7); Eosinophils % (A) 2 %; HCT 39.8 % (34.0-46.0); HDW 2.41; HGB 13.6 gm/dL (11.4-16.0); Luc # (Auto) 0.15; Luc % (Auto) 1; Lymphocytes # (A) 3.1 k/uL (1.0-4.8); Lymphocytes % (A) 28 %; MCHC 34.1 g/dL (31.0-37.0); MCV 85.1 fL (80.0-100.0); Mean Platelet Volume 7.5; Monocytes # (A) 0.5 k/uL (0-1.0); Monocytes % (A) 4 %; Neutrophils # (A) 7.3 k/uL (1.3-7.7); Neutrophils % (A) 65 %; RBC 4.68 m/uL (3.80-5.40); WBC 11.3 k/uL (3.8-10.6); WBC (Perox) 10.56
[2016-11-16 13:57] LABS: ALT 29 U/L (9-52); AST 15 U/L (14-36); Alkaline Phosphatase 89 U/L (38-126); Anion Gap 9 mmol/L; Blood Urea Nitrogen 10 mg/dL (7-17); Calcium 9.2 mg/dL (8.4-10.2); Carbon Dioxide 25 mmol/L (22-30); Chloride 107 mmol/L (98-107); Glucose 77 mg/dL (74-99); Non-African American GFR(MDRD) >60 (>60 ml/min/1.73 sqM); Sodium 141 mmol/L (137-145); Total Bilirubin 0.3 mg/dL (0.2-1.3); Total Protein 7.8 g/dL (6.3-8.2)
--- NOTE | 2016-11-16 13:58 | CT ---
EXAMINATION TYPE: CT brain wo con for TPA DATE OF EXAM: 11/16/2016 COMPARISON: NONE HISTORY: Neurological deficits. CT DLP: 1177 mGycm Automated exposure control for dose reduction was used. FINDINGS: Central structures are midline. There is no evidence of hydrocephalus. No acute focal lesion, mass ef fect or midline shift is seen. I do not see evidence of intracranial blood. Visualized portions of the paranasal sinuses and mastoids are clear. IMPRESSION: NORMAL CT SCAN OF THE BRAIN.
[2016-11-16 14:09] LABS: INR 0.9 (<1.2); Partial Thromboplastin Time 22.2 sec (22.0-30.0); Prothrombin Time 9.3 sec (9.0-12.0)
[2016-11-16] MEDS ORDERED: tPA (Alteplase) PER PHARMACY 1 EACH MISC MISCELLANE PRN (14:22)
[2016-11-16] MEDS ORDERED: ALTEPLASE 81 MG in EMPTY BAG 1 BAG IV STA (14:23)
[2016-11-16] MEDS ORDERED: ALTEPLASE BOLUS 9 MG in EMPTY SYRINGE 1 SYR IV STA (14:23)
--- NOTE | 2016-11-16 15:12 | CT ---
EXAMINATION TYPE: CT angio head neck DATE OF EXAM: 11/16/2016 HISTORY: Neuro Deficits COMPARISON: NONE CT DLP: 484 mGycm. Automated Exposure Control for Dose Reduction was Utilized. TECHNIQUE: CTA scan of the neck is performed with IV Contrast, patient injected with 100 ml mL of Om nipaque 350, axial images are obtained, coronal and sagittal reformatted images are reviewed. Three-D reconstructed images are created on an independent workstation and reviewed. FINDINGS: Carotid/Vascular Structures: There is a normal three-vessel arch. The carotid arteries are well-opaci fied bilaterality. The left vertebral artery is dominant. The right vertebral artery is diminutive. C ervical Rhoades vessels are well opacified. There is an anterior communicating artery identified. Ther e is no AVM, aneurysm, or significant stenosis. Other: Visualized portions of the brain and cervical spine are unremarkable. IMPRESSION: No significant abnormality is seen.
== END 2016-11-16 15:18 | disposition other institution (70) ==
LOC: EC 12:44
DX: I63.9 Cerebral infarction, unspecified (principal); E07.9 Disorder of thyroid, unspecified; F31.9 Bipolar disorder, unspecified; F90.9 Attention-deficit hyperactivity disorder, unspecified type; F17.200 Nicotine dependence, unspecified, uncomplicated; Z79.3 Long term (current) use of hormonal contraceptives; Z79.899 Other long term (current) drug therapy
CPT/HCPCS: 99285; 36415; 93005; 83880; 80053; 82550; 82553; 84484; 85025; 85610; 85730; 84702; 70496; 70450; 70498; 37195; J2997; Q9967

== ENCOUNTER 2017-01-08 11:46 | Emergency (ER) | payer OTHER ==
[2017-01-08 12:04] VITALS: TEMP 97.2
[2017-01-08] MEDS ORDERED: KETOROLAC 60 MG/2 ML VIAL IM STA (12:25)
--- NOTE | 2017-01-08 12:29 | ED ---
General Adult HPI - General Chief complaint: Neuro Symptoms/Deficit Stated complaint: both hand tingling/numbness Time Seen by Provider: 01/08/17 12:00 Source: patient, RN notes reviewed Mode of arrival: ambulatory Limitations: no limitations - History of Present Illness Initial comments: This is a 31-year-old female presents emergency Department complaining of bilateral tingling in the hands. She states it's been ongoing for months but it is intermittent. Patient states a little bit worse this morning so she came to the emergency department. Patient states she's had no injury to her neck or hands. Patient states the tingling tends to be more in the first few fingers and it's a little bit worse on the left hand on the right. Patient denies any pain or wrist tenderness. - Related Data Home Medications Medication Instructions Recorded Confirmed Levothyroxine Sodium [Synthroid] 50 mcg PO DAILY 12/19/15 01/08/17 Dextroamphetamine/Amphetamine 20 mg PO BID 10/19/16 01/08/17 [Adderall] Sertraline [Zoloft] 100 mg PO BID 10/19/16 01/08/17 Allergies Allergy/AdvReac Type Severity Reaction Status Date / Time No Known Allergies Allergy Verified 01/08/17 12:12 Review of Systems ROS Statement: Those systems with pertinent positive or pertinent negative responses have been documented in the HPI. ROS Other: All systems not noted in ROS Statement are negative. Past Medical History Past Medical History: Thyroid Disorder Additional Past Medical History / Comment(s): hypoglycema. History of Any Multi-Drug Resistant Organisms: None Reported Past Surgical History: Section Past Psychological History: ADD/ADHD, Bipolar, Depression Smoking Status: Current every day smoker Past Alcohol Use History: None Reported Past Drug Use History: Marijuana - Past Family History Father Family Medical History: Diabetes Mellitus General Exam - General Exam Comments Initial Comments: GENERAL Patient is well-developed and well-nourished. Patient is in mild distress. EYES Patient's pupils are equal and round. Extraocular motion is intact SKIN Unremarkable NEURO The patient is alert and oriented 3 PYSCH Patient has normal interpersonal interactions. MUSCULOSKELETAL Patient has good sensation in all fingers however she states her subjective tingling in the thumb and first and second finger. Patient had no tingling when I tapped on her wrists or and doing the Phalen test Limitations: no limitations Course Vital Signs 01/08/17 12:02 Temperature 97.2 F L Pulse Rate 86 Respiratory 18 Rate Blood Pressure 132/63 O2 Sat by Pulse 97 Oximetry Disposition Clinical Impression: Degenerative disc disease, cervical, Radiculopathy Disposition: HOME SELF-CARE Condition: Good Additional Instructions: Patient is a follow-up with Dr. Chirinos as soon as possible. Patient states Motrin 600 mg every 6 hours. Referrals: Solo Walsh DO [Doctor of Osteopathic Medicine] - 1-2 days Time of Disposition: 14:14
--- NOTE | 2017-01-08 13:34 | XR ---
Cervical spine HISTORY: Bilateral hand numbness 5 views of the cervical spine, comparison CT 11/16/2016 Loss of the normal cervical lordosis may be due to muscle spasm. Cervical vertebral bodies show prese rved height. Minimal retrolisthesis grade 1 C5-6, there is associated spondylosis and loss of disc he ight. Minimal retrolisthesis grade 1 C6-7. Lateral extension of endplate disc complex at C4-5 and C5- 6 likely causes foraminal encroachment. Bilateral foraminal encroachment may also be present at C3-4. Midline posterior fusion anomaly at C1. IMPRESSION: Degenerative disc disease and additional findings above.
--- NOTE | 2017-01-08 14:07 | CT ---
EXAMINATION TYPE: CT brain wo con DATE OF EXAM: 01/08/2017 COMPARISON: CT brain from November 16, 2016 HISTORY: Bilateral arm pain and numbness CT DLP: 1159 mGycm. Automated Exposure Control for Dose Reduction was Utilized. TECHNIQUE: CT scan of the head is performed without contrast. FINDINGS: There is no acute intracranial hemorrhage, mass effect, or midline shift identified. The ventricles and sulci are within normal limits in size. The globes are intact and the visualized sin uses are clear. IMPRESSION: No acute intracranial hemorrhage, mass effect, or midline shift is seen. No significant change from prior.
[2017-01-08 14:16] VITALS: BP 105/54; PULSE 77; RESP 16
== END 2017-01-08 14:27 | disposition home or self-care (01) ==
LOC: EC 11:46
DX: M50.11 Cervical disc disorder with radiculopathy, high cervical region (principal); F31.9 Bipolar disorder, unspecified; F90.9 Attention-deficit hyperactivity disorder, unspecified type; E07.9 Disorder of thyroid, unspecified; F17.200 Nicotine dependence, unspecified, uncomplicated
CPT/HCPCS: 72050; 70450; 99284; 96372; J1885

== ENCOUNTER 2017-08-15 11:38 | Emergency (ER) | payer OTHER ==
[2017-08-15 11:46] VITALS: TEMP 97.9
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
[2017-08-15] MEDS ORDERED: KETOROLAC 60 MG/2 ML VIAL IM STA (13:04)
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
[2017-08-15 13:50] VITALS: BP 104/66; PULSE 64; RESP 14
== END 2017-08-15 13:50 | disposition home or self-care (01) ==
LOC: EC 11:38
DX: M54.9 Dorsalgia, unspecified (principal); M54.2 Cervicalgia; E07.9 Disorder of thyroid, unspecified; F90.9 Attention-deficit hyperactivity disorder, unspecified type; F31.9 Bipolar disorder, unspecified; F17.200 Nicotine dependence, unspecified, uncomplicated; Z79.899 Other long term (current) drug therapy; V43.52XA Car driver injured in collision with other type car in traffic accident, initial encounter; Y92.009 Unspecified place in unspecified non-institutional (private) residence as the place of occurrence of the external cause
CPT/HCPCS: 72072; 72100; 72125; 70450; 99284; 96372; J1885

== ENCOUNTER 2017-08-25 15:31 | Emergency (ER) | payer OTHER ==
[2017-08-25 15:37] VITALS: RESP 18
[2017-08-25 16:45] LABS: Basophils % (A) 0 %; Eosinophils # (A) 0.4 k/uL (0-0.7); Eosinophils % (A) 4 %; HCT 37.5 % (34.0-46.0); HGB 12.8 gm/dL (11.4-16.0); Lymphocytes # (A) 2.5 k/uL (1.0-4.8); Lymphocytes % (A) 26 %; MCH 28.5 pg (25.0-35.0); MCHC 34.3 g/dL (31.0-37.0); MCV 83.2 fL (80.0-100.0); Mean Platelet Volume 6.9; Monocytes # (A) 0.2 k/uL (0-1.0); Monocytes % (A) 2 %; Neutrophils # (A) 6.6 k/uL (1.3-7.7); Neutrophils % (A) 67 %; Platelet Count 291 k/uL (150-450); RBC 4.51 m/uL (3.80-5.40); RDW 13.8 % (11.5-15.5); WBC 9.8 k/uL (3.8-10.6)
[2017-08-25 16:54] LABS: Anion Gap 9 mmol/L; Blood Urea Nitrogen 10 mg/dL (7-17); Calcium 8.9 mg/dL (8.4-10.2); Carbon Dioxide 27 mmol/L (22-30); Chloride 106 mmol/L (98-107); Glucose 120 mg/dL (74-99); Potassium 4.2 mmol/L (3.5-5.1); Sodium 142 mmol/L (137-145)
[2017-08-25 17:03] LABS: Amphetamine Screen,Urine Detected (NotDetected); Barbiturate Screen,Urine Not Detected (NotDetected); Benzodiazepines Screen,Urine Not Detected (NotDetected); Cocaine Screen,Urine Detected (NotDetected); Methadone Screen, Urine Not Detected (NotDetected); Opiate Screen,Urine Not Detected (NotDetected); Oxycodone Screen, Urine Not Detected (NotDetected); Phencyclidine Screen,Urine Not Detected (NotDetected); Tricyclic Antidepressant,Urine Not Detected (NotDetected); Urn Cannabinoid Scrn Detected (NotDetected)
--- NOTE | 2017-08-25 17:49 | ED ---
Psych HPI - General Source: patient Mode of arrival: ambulatory <Roldan Padron - Last Filed: 08/25/17 17:46> <Salazar Mack - Last Filed: 08/25/17 19:09> - General Chief Complaint: Psychiatric Symptoms Stated Complaint: Depressed & Swollen Feet Time Seen by Provider: 08/25/17 15:59 - History of Present Illness Initial Comments: 31 years old female complaining about worsening of the depression she has a history of depression since he was 12 years old she denies any alcohol but she does admit to him some street drugs lately and she has attempted suicide in the past most recent was a week and half ago when she attempted to hang herself at home she didn't come to the ER for that extend depression has been worse since she has a plan she was walking front of oncoming traffic. She also complained about swelling of the ankles no trauma to the ankles she denies any headache no neck stiffness no chest pain or shortness of breath no abdominal pain no frequency urgency dysuria (Roldan Padron) - Related Data Home Medications Medication Instructions Recorded Confirmed Levothyroxine Sodium [Synthroid] 50 mcg PO DAILY 12/19/15 08/25/17 Dextroamphetamine/Amphetamine 20 mg PO BID 10/19/16 08/25/17 [Adderall] Sertraline [Zoloft] 100 mg PO BID 10/19/16 08/25/17 Previous Rx's Medication Instructions Recorded Cyclobenzaprine [Flexeril] 10 mg PO TID #10 tab 08/15/17 Ibuprofen [Motrin] 600 mg PO Q6HR PRN #30 day 08/15/17 Allergies Allergy/AdvReac Type Severity Reaction Status Date / Time No Known Allergies Allergy Verified 08/25/17 16:19 Review of Systems ROS Other: All systems not noted in ROS Statement are negative. <Roldan Padron - Last Filed: 08/25/17 17:46> ROS Other: All systems not noted in ROS Statement are negative. <Salazar Mack - Last Filed: 08/25/17 19:09> ROS Statement: Those systems with pertinent positive or pertinent negative responses have been documented in the HPI. Past Medical History Past Medical History: Thyroid Disorder Additional Past Medical History / Comment(s): hypoglycema. History of Any Multi-Drug Resistant Organisms: None Reported Past Surgical History: Section Past Psychological History: ADD/ADHD, Bipolar, Depression Smoking Status: Current every day smoker Past Alcohol Use History: None Reported Past Drug Use History: Marijuana - Past Family History Father Family Medical History: Diabetes Mellitus <Roldan Padron - Last Filed: 08/25/17 17:46> General Exam Limitations: no limitations <Roldan Padron - Last Filed: 08/25/17 17:46> <MackrAike - Last Filed: 08/25/17 19:09> - General Exam Comments Initial Comments: General: The patient is awake and alert, in no distress, and does not appear acutely ill. Skin: Skin is warm and dry and no rashes or lesions are noted. Eye: Pupils are equal, round and reactive to light, extra-ocular movements are intact; there is normal conjunctiva bilaterally. Ears, nose, mouth and throat: There are moist mucous membranes and no oral lesions. Neck: The neck is supple, there is no tenderness or JVD. Cardiovascular: There is a regular rate and rhythm. No murmur, rub or gallop is appreciated. Respiratory: To auscultation bilateral, no wheezing no rhonchi no distress respiratory vital noticed Gastrointestinal: Soft, non-distended, non-tender abdomen without masses or organomegaly noted. There is no rebound or guarding present. Bowel sounds are unremarkable. Back: There is no tenderness to palpation in the midline. There is no obvious deformity. Musculoskeletal: Normal ROM, no tenderness, There is no pedal edema. There is no calf tenderness or swelling. No cords were appreciated. I did not notice any pitting edema or dependent edema around the ankles no calf tenderness noticed no findings suggestive of DVT noticed over the lower extremities Neurological: CN II-XII intact, Cranial nerves III through XII are intact. There are no obvious motor or sensory deficits. Coordination appears grossly intact. Speech is normal. Psychiatric: Cooperative, seems depressed and admits to suicidal attempt week and a half ago she tried to hang herself now she has a plan she wants to walk in front of oncoming traffic (Roldan Padron) Vital Signs 08/25/17 15:34 Temperature 98.2 F Pulse Rate 97 Respiratory 18 Rate Blood Pressure 110/70 O2 Sat by Pulse 97 Oximetry Medical Decision Making - Lab Data Result diagrams: 08/25/17 16:20 08/25/17 16:20 <Roldan Padron - Last Filed: 08/25/17 17:46> - Lab Data Result diagrams: 08/25/17 16:20 08/25/17 16:20 <FrederickTreySalazar - Last Filed: 08/25/17 19:09> - Medical Decision Making EPS came down and evaluated the patient he determined that the patient could go home with follow-up. (Salazar Mack) - Lab Data Lab Results 08/25/17 08/25/17 08/25/17 Range/Units 16:20 16:20 16:20 WBC (3.8-10.6) k/uL RBC (3.80-5.40) m/uL Hgb (11.4-16.0) gm/dL Hct (34.0-46.0) % MCV (80.0-100.0) fL MCH (25.0-35.0) pg MCHC (31.0-37.0) g/dL RDW (11.5-15.5) % Plt Count (150-450) k/uL Neutrophils % % Lymphocytes % % Monocytes % % Eosinophils % % Basophils % % Neutrophils # (1.3-7.7) k/uL Lymphocytes # (1.0-4.8) k/uL Monocytes # (0-1.0) k/uL Eosinophils # (0-0.7) k/uL Basophils # (0-0.2) k/uL Sodium 142 (137-145) mmol/L Potassium 4.2 (3.5-5.1) mmol/L Chloride 106 (98-107) mmol/L Carbon Dioxide 27 (22-30) mmol/L Anion Gap 9 mmol/L BUN 10 (7-17) mg/dL Creatinine 0.63 (0.52-1.04) mg/dL Est GFR (CKD-EPI)AfAm >90 (>60 ml/min/1.73 sqM) Est GFR (CKD-EPI)NonAf >90 (>60 ml/min/1.73 sqM) Glucose 120 H (74-99) mg/dL Calcium 8.9 (8.4-10.2) mg/dL Urine HCG, Qual Not Detected (Not Detectd) Urine Opiates Screen Not Detected (NotDetected) Ur Oxycodone Screen Not Detected (NotDetected) Urine Methadone Screen Not Detected (NotDetected) Ur Propoxyphene Screen Not Detected (NotDetected) Ur Barbiturates Screen Not Detected (NotDetected) U Tricyclic Antidepress Not Detected (NotDetected) Ur Phencyclidine Scrn Not Detected (NotDetected) Ur Amphetamines Screen Detected H (NotDetected) U Methamphetamines Scrn Detected H (NotDetected) U Benzodiazepines Scrn Not Detected (NotDetected) Urine Cocaine Screen Detected H (NotDetected) U Marijuana (THC) Screen Detected H (NotDetected) 08/25/17 Range/Units 16:20 WBC 9.8 (3.8-10.6) k/uL RBC 4.51 (3.80-5.40) m/uL Hgb 12.8 (11.4-16.0) gm/dL Hct 37.5 (34.0-46.0) % MCV 83.2 (80.0-100.0) fL MCH 28.5 (25.0-35.0) pg MCHC 34.3 (31.0-37.0) g/dL RDW 13.8 (11.5-15.5) % Plt Count 291 (150-450) k/uL Neutrophils % 67 % Lymphocytes % 26 % Monocytes % 2 % Eosinophils % 4 % Basophils % 0 % Neutrophils # 6.6 (1.3-7.7) k/uL Lymphocytes # 2.5 (1.0-4.8) k/uL Monocytes # 0.2 (0-1.0) k/uL Eosinophils # 0.4 (0-0.7) k/uL Basophils # 0.0 (0-0.2) k/uL Sodium (137-145) mmol/L Potassium (3.5-5.1) mmol/L Chloride (98-107) mmol/L Carbon Dioxide (22-30) mmol/L Anion Gap mmol/L BUN (7-17) mg/dL Creatinine (0.52-1.04) mg/dL Est GFR (CKD-EPI)AfAm (>60 ml/min/1.73 sqM) Est GFR (CKD-EPI)NonAf (>60 ml/min/1.73 sqM) Glucose (74-99) mg/dL Calcium (8.4-10.2) mg/dL Urine HCG, Qual (Not Detectd) Urine Opiates Screen (NotDetected) Ur Oxycodone Screen (NotDetected) Urine Methadone Screen (NotDetected) Ur Propoxyphene Screen (NotDetected) Ur Barbiturates Screen (NotDetected) U Tricyclic Antidepress (NotDetected) Ur Phencyclidine Scrn (NotDetected) Ur Amphetamines Screen (NotDetected) U Methamphetamines Scrn (NotDetected) U Benzodiazepines Scrn (NotDetected) Urine Cocaine Screen (NotDetected) U Marijuana (THC) Screen (NotDetected) Disposition <Roldan Padron - Last Filed: 08/25/17 17:46> Is patient prescribed a controlled substance at d/c from ED?: No Time of Disposition: 19:09 <Salazar Mack - Last Filed: 08/25/17 19:09> Clinical Impression: Situational depression, Polypharmacy Disposition: HOME SELF-CARE Condition: Good Instructions: Depression (ED) Referrals: Khari Macario MD [Primary Care Provider] - 1-2 days
[2017-08-25 19:21] VITALS: BP 124/74; PULSE 59; TEMP 98
== END 2017-08-25 19:20 | disposition home or self-care (01) ==
LOC: EC 15:31
DX: F43.21 Adjustment disorder with depressed mood (principal); T50.992A Poisoning by other drugs, medicaments and biological substances, intentional self-harm, initial encounter; R45.851 Suicidal ideations; E07.9 Disorder of thyroid, unspecified; F31.30 Bipolar disorder, current episode depressed, mild or moderate severity, unspecified; F90.9 Attention-deficit hyperactivity disorder, unspecified type; F17.200 Nicotine dependence, unspecified, uncomplicated; Z79.899 Other long term (current) drug therapy
CPT/HCPCS: 36415; 80048; 80306; 81025; 82075; 85025; 99284

== ENCOUNTER 2017-09-14 02:27 | Emergency (ER) | payer OTHER ==
[2017-09-14] MEDS ORDERED: IPRATROPIUM-ALBUTEROL 3 ML NEB INHALATION STA (03:35)
[2017-09-14 03:49] VITALS: PULSE 78
[2017-09-14] MEDS ORDERED: cefTRIAXone 1,000 MG VIAL (IM USE) IM STA (04:27)
[2017-09-14] MEDS ORDERED: methylPREDNISolone SOD SUCCI 125 MG/2 ML VIAL IM ONE (04:27)
--- NOTE | 2017-09-14 05:25 | XR ---
EXAMINATION TYPE: XR chest 2V DATE OF EXAM: 09/14/2017 COMPARISON: 07/07/2016 HISTORY: Cough TECHNIQUE: Frontal and lateral views of the chest are obtained. FINDINGS: Heart and mediastinum are normal. Lungs are clear. Diaphragm is normal. Bony thorax appear s normal. IMPRESSION: Normal chest. No change.
--- NOTE | 2017-09-14 05:26 | ED ---
URI HPI - General Chief Complaint: Upper Respiratory Infection Stated Complaint: ENT Time Seen by Provider: 09/14/17 03:00 Source: patient, RN notes reviewed, old records reviewed Mode of arrival: ambulatory Limitations: no limitations - Related Data Home Medications Medication Instructions Recorded Confirmed Levothyroxine Sodium [Synthroid] 50 mcg PO DAILY 12/19/15 09/14/17 Dextroamphetamine/Amphetamine 20 mg PO BID 10/19/16 09/14/17 [Adderall] Sertraline [Zoloft] 100 mg PO BID 10/19/16 09/14/17 Previous Rx's Medication Instructions Recorded Cyclobenzaprine [Flexeril] 10 mg PO TID #10 tab 08/15/17 Albuterol Inhaler [Ventolin Hfa 1 - 2 puff INHALATION RT-Q6H PRN 09/14/17 Inhaler] #1 inhaler Levofloxacin [Levaquin] 750 mg PO DAILY 5 Days #5 tab 09/14/17 Promethazine/Dextromethorphan 5 ml PO TID #120 ml 09/14/17 [Phenergan DM Syrup] predniSONE 50 mg PO DAILY #5 tablet 09/14/17 Allergies Allergy/AdvReac Type Severity Reaction Status Date / Time No Known Allergies Allergy Verified 08/25/17 16:19 Review of Systems ROS Statement: Those systems with pertinent positive or pertinent negative responses have been documented in the HPI. ROS Other: All systems not noted in ROS Statement are negative. Past Medical History Past Medical History: Thyroid Disorder Additional Past Medical History / Comment(s): hypoglycema. History of Any Multi-Drug Resistant Organisms: None Reported Past Surgical History: Section Past Psychological History: ADD/ADHD, Bipolar, Depression Smoking Status: Current every day smoker Past Alcohol Use History: None Reported Past Drug Use History: Marijuana - Past Family History Father Family Medical History: Diabetes Mellitus General Exam Limitations: no limitations General appearance: alert, in no apparent distress Head exam: Present: atraumatic, normocephalic, normal inspection Eye exam: Present: normal appearance, PERRL, EOMI. Absent: scleral icterus, conjunctival injection, periorbital swelling ENT exam: Present: normal exam, mucous membranes moist Neck exam: Present: normal inspection. Absent: tenderness, meningismus, lymphadenopathy Respiratory exam: Present: wheezes. Absent: normal lung sounds bilaterally, respiratory distress, rales, rhonchi, stridor Cardiovascular Exam: Present: regular rate, normal rhythm, normal heart sounds. Absent: systolic murmur, diastolic murmur, rubs, gallop, clicks GI/Abdominal exam: Present: soft, normal bowel sounds. Absent: distended, tenderness, guarding, rebound, rigid Extremities exam: Present: normal inspection, full ROM, normal capillary refill. Absent: tenderness, pedal edema, joint swelling, calf tenderness Back exam: Present: normal inspection Neurological exam: Present: alert, oriented X3, CN II-XII intact Psychiatric exam: Present: normal affect, normal mood Skin exam: Present: warm, dry, intact, normal color. Absent: rash Course Vital Signs 09/14/17 09/14/17 09/14/17 02:59 03:43 03:48 Temperature 98.0 F Pulse Rate 79 88 78 Respiratory 20 Rate Blood Pressure 130/74 O2 Sat by Pulse 94 L Oximetry Medical Decision Making - Lab Data Lab Results 09/14/17 Range/Units 04:30 Urine HCG, Qual Not Detected (Not Detectd) Disposition Clinical Impression: Bronchitis Disposition: HOME SELF-CARE Condition: Good Instructions: Upper Respiratory Infection (ED) Additional Instructions: Patient has a take the medication as prescribed. Follow-up with primary care physician. Return to the emergency department if any alarming signs or symptoms occur. Prescriptions: Albuterol Inhaler [Ventolin Hfa Inhaler] 1 - 2 puff INHALATION RT-Q6H PRN #1 inhaler PRN Reason: Pain Levofloxacin [Levaquin] 750 mg PO DAILY 5 Days #5 tab predniSONE 50 mg PO DAILY #5 tablet Promethazine/Dextromethorphan [Phenergan DM Syrup] 5 ml PO TID #120 ml Is patient prescribed a controlled substance at d/c from ED?: No When asked, does pt state using other controlled substances?: No If prescribed controlled substance>3 days was MAPS reviewed?: No If opioid is for acute pain is fill amount 7 days or less?: No If Rx opioid, was Start Talking consent form obtained?: No Referrals: Khari Macario MD [Primary Care Provider] - 1-2 days Time of Disposition: 05:23
[2017-09-14 05:52] VITALS: BP 126/73; RESP 18; TEMP 98.3
== END 2017-09-14 05:52 | disposition home or self-care (01) ==
LOC: EC 02:27
DX: J40 Bronchitis, not specified as acute or chronic (principal); E07.9 Disorder of thyroid, unspecified; F90.9 Attention-deficit hyperactivity disorder, unspecified type; F31.9 Bipolar disorder, unspecified; F17.200 Nicotine dependence, unspecified, uncomplicated; Z79.899 Other long term (current) drug therapy
CPT/HCPCS: 94640; 81025; 71046; 99284; 96372 ×2; J2930; J0696

== ENCOUNTER 2017-11-16 22:14 | Emergency (ER) | payer OTHER ==
--- NOTE | 2017-11-16 22:27 | ED ---
General Adult HPI - General Chief complaint: Upper Respiratory Infection Stated complaint: congestion/SOB Time Seen by Provider: 11/16/17 22:26 Source: patient Mode of arrival: ambulatory Limitations: no limitations - History of Present Illness Initial comments: Ana is a 32-year-old female with past medical history of asthma who presents to the emergency department today for evaluation of difficulty breathing as well as numbness and tingling in her bilateral hands. Patient reports that she has a history of asthma, she has not had an asthma attack for a number of years. She does not have an inhaler at home. She reports that throughout the day today she's had progressively worsening wheezing and feeling like she can't catch her breath. She denies any fevers, chills chest pain or palpitations. She reports a nonproductive harsh cough which is associated with wheezing. also reports that she has a history of carpal tunnel which was diagnosed in the past. She has an prescribed Motrin for this in the past. 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 She reports that she is out of motrin and feels like that is making her hands worse. - Related Data Home Medications Medication Instructions Recorded Confirmed Levothyroxine Sodium [Synthroid] 50 mcg PO DAILY 12/19/15 11/16/17 Dextroamphetamine/Amphetamine 20 mg PO BID 10/19/16 11/16/17 [Adderall] Vortioxetine Hydrobromide 20 mg PO DAILY 11/16/17 11/16/17 [Trintellix] guaiFENesin [Mucinex] 600 mg PO BID 11/16/17 11/16/17 Previous Rx's Medication Instructions Recorded Albuterol Inhaler [Ventolin Hfa 1 - 2 puff INHALATION RT-Q6H PRN 11/16/17 Inhaler] #1 inhaler Ibuprofen [Motrin] 600 mg PO TID #30 tab 11/16/17 predniSONE 30 mg PO DAILY 5 Days #15 tab 11/16/17 Allergies Allergy/AdvReac Type Severity Reaction Status Date / Time No Known Allergies Allergy Verified 11/16/17 23:14 Review of Systems ROS Statement: Those systems with pertinent positive or pertinent negative responses have been documented in the HPI. ROS Other: All systems not noted in ROS Statement are negative. Past Medical History Past Medical History: Thyroid Disorder Additional Past Medical History / Comment(s): hypoglycema. History of Any Multi-Drug Resistant Organisms: None Reported Past Surgical History: Section Past Psychological History: ADD/ADHD, Bipolar, Depression Smoking Status: Former smoker Past Alcohol Use History: None Reported Past Drug Use History: Marijuana - Past Family History Father Family Medical History: Diabetes Mellitus General Exam - General Exam Comments Initial Comments: GENERAL: Patient is well-developed and well-nourished. Patient is nontoxic and well- hydrated and is in mild distress. HENT: Normocephalic, Atraumatic. Neck is soft and supple. No significant lymphadenopathy is noted. Oropharynx is clear. Moist mucous membranes. Neck has full range of motion without eliciting any pain. EYES: The sclera were anicteric and conjunctiva were pink and moist. Extraocular movements were intact and pupils were equal round and reactive to light. Eyelids were unremarkable. PULMONARY: Tachypnea with wheezing in all lung baeza CARDIOVASCULAR: There is a regular rate and rhythm without any murmurs gallops or rubs. Warm and well perfused extremities, strong radial pulses bilaterally ABDOMEN: Soft and nontender with normal bowel sounds. SKIN: Skin is clear with no lesions or rashes and otherwise unremarkable. NEUROLOGIC: Patient is alert and oriented x3. Cranial nerves II through XII are grossly intact. Motor and sensory are also intact. Normal speech, volume and content. Symmetrical smile. MUSCULOSKELETAL: Normal extremities with adequate strength and full range of motion. No lower extremity swelling or edema. No calf tenderness. LYMPHATICS: No significant lymphadenopathy is noted PSYCHIATRIC: Normal psychiatric evaluation. Limitations: no limitations Limitations: no limitations Course Vital Signs 11/16/17 11/16/17 11/16/17 22:16 23:02 23:10 Temperature 98.4 F Pulse Rate 84 80 81 Respiratory 20 Rate Blood Pressure 116/81 O2 Sat by Pulse 98 Oximetry 11/16/17 23:55 Temperature 100.1 F H Pulse Rate 93 Respiratory 16 Rate Blood Pressure 138/81 O2 Sat by Pulse 98 Oximetry Medical Decision Making - Medical Decision Making Patient was seen and evaluated, history was obtained from the patient. Patient has a history of asthma, currently does not have an albuterol inhaler at home. Progressively worsening wheeze throughout the day. On exam she has wheezing, there is no hypoxia or tachycardia noted. PERC/Wells Negative for risk of PE Patient is nontoxic-appearing, no fevers, no chills, no Sirs criteria. Patient was treated with a single DuoNeb with significant improvement in her breathing, wheezing resolved. I discussed this with the patient who is agreeable to plan for discharge home with an MDI albuterol inhaler. At this time and feel that the patient warrants a chest x-ray as I do not feel she has a pneumonia, patient is agreeable with this assessment Patient with progressively worsening bilateral hand pain after starting a job at a factory. Patient previously had improvement in her symptoms with Motrin, currently not taking Motrin because she is out of it, has been trying naproxen or Aleve with no relief. We'll prescribe 6 her milligram of Motrin. This time I suspect patient suffered from an acute asthma attack, she resolved with a single DuoNeb therapy. I gave first dose oral steroid. We'll send her home with 5 days of oral steroids as well as MDI inhaler. Return parameters were discussed. Couple tunnel exercises were advised and the patient was advised follow-up with PCP Disposition Clinical Impression: URI (upper respiratory infection), Carpal tunnel syndrome Disposition: HOME SELF-CARE Condition: Good Instructions: Upper Respiratory Infection (ED) Prescriptions: Albuterol Inhaler [Ventolin Hfa Inhaler] 1 - 2 puff INHALATION RT-Q6H PRN #1 inhaler PRN Reason: Wheezing Ibuprofen [Motrin] 600 mg PO TID #30 tab predniSONE 30 mg PO DAILY 5 Days #15 tab Is patient prescribed a controlled substance at d/c from ED?: No Referrals: Khari Macario MD [Primary Care Provider] - 1-2 days
[2017-11-16] MEDS ORDERED: IPRATROPIUM-ALBUTEROL 3 ML NEB INHALATION STA (22:40)
[2017-11-16] MEDS ORDERED: predniSONE 20 MG TAB PO STA (22:40)
[2017-11-16] MEDS ORDERED: IBUPROFEN 600 MG STARTER PACK 4 TAB BTL PO STA (23:41)
[2017-11-16 23:56] VITALS: BP 138/81; PULSE 93; RESP 16; TEMP 100.1
== END 2017-11-16 23:57 | disposition home or self-care (01) ==
LOC: EC 22:14
DX: J06.9 Acute upper respiratory infection, unspecified (principal); G56.03 Carpal tunnel syndrome, bilateral upper limbs; J45.909 Unspecified asthma, uncomplicated; E07.9 Disorder of thyroid, unspecified; F90.9 Attention-deficit hyperactivity disorder, unspecified type; F32.9 Major depressive disorder, single episode, unspecified; Z87.891 Personal history of nicotine dependence; Z79.899 Other long term (current) drug therapy
CPT/HCPCS: 94640; 99284; J7512

== ENCOUNTER → 2018-05-18 | Outpatient (CLI) | payer OTHER ==
[2018-05-18 11:57] LABS: Basophils % (A) 0 %; Eosinophils # (A) 0.2 k/uL (0-0.7); Eosinophils % (A) 2 %; HCT 39.7 % (34.0-46.0); HGB 12.6 gm/dL (11.4-16.0); Lymphocytes # (A) 3.5 k/uL (1.0-4.8); Lymphocytes % (A) 34 %; MCH 27.3 pg (25.0-35.0); MCHC 31.7 g/dL (31.0-37.0); MCV 86.2 fL (80.0-100.0); Mean Platelet Volume 6.3; Monocytes # (A) 0.4 k/uL (0-1.0); Monocytes % (A) 3 %; Neutrophils # (A) 6.1 k/uL (1.3-7.7); Neutrophils % (A) 59 %; Platelet Count 339 k/uL (150-450); RBC 4.61 m/uL (3.80-5.40); RDW 13.2 % (11.5-15.5); WBC 10.2 k/uL (3.8-10.6)
[2018-05-18 17:07] LABS: Albumin 4.1 g/dL (3.80-4.90); Albumin/Globulin Ratio 1.71 (1.60-3.17); Globulin 2.4 g/dL (1.6-3.3); Potassium 4.6 mmol/L (3.5-5.5); Total Bilirubin 0.4 mg/dL (0.2-1.2); Total Protein 6.5 g/dL (6.2-8.2)
== END | disposition home or self-care (01) ==
LOC: LABWHC1 11:17
PROVIDERS: ATTEND Family Medicine
DX: R53.83 Other fatigue (principal); Z77.128 Contact with and (suspected) exposure to other hazards in the physical environment
CPT/HCPCS: 36415; 80053; 82306; 85025

== ENCOUNTER 2018-06-24 23:18 | Emergency (ER) | payer OTHER ==
[2018-06-24 23:25] VITALS: PULSE 85
--- NOTE | 2018-06-25 02:33 | CT ---
EXAM: CT Abdomen and Pelvis Without Intravenous Contrast CLINICAL HISTORY: Reason: Pain. Right flank pain. TECHNIQUE: Axial computed tomography images of the abdomen and pelvis without intravenous contrast. CTDI is 35.5 mGy and DLP is 1429 mGy-cm. This CT exam was performed using one or more of the following dose reduction techniques: automated exposure control, adjustment of the mA and/or kV according to patient size, and/or use of iterative reconstruction technique. COMPARISON: No relevant prior studies available. FINDINGS: Lung bases: Imaged lung bases are clear. ABDOMEN: Liver: Mild hepatomegaly. No focal hepatic abnormalities. Gallbladder and bile ducts: Gallbladder is partially contracted. No calcified gallstones. No evidence of biliary dilatation. Pancreas: Pancreas is unremarkable. Spleen: Spleen is unremarkable. Adrenals: No adrenal masses. Kidneys and ureters: No evidence of renal calculi or hydronephrosis. No obstructing ureteral calculi. Stomach and bowel: No evidence of bowel obstruction or pneumoperitoneum. Nondistended colonic distention limiting colonic evaluation. PELVIS: Appendix: Imaged appendix in right lower quadrant is unremarkable. Bladder: Urinary bladder is unremarkable. No bladder calculi. Reproductive: Unremarkable as visualized. ABDOMEN and PELVIS: Intraperitoneal space: See above. Bones/joints: No acute bony abnormalities. Soft tissues: Very small fat-containing umbilical hernia. Vasculature: No abdominal aortic aneurysm. Lymph nodes: No evidence of lymphadenopathy. IMPRESSION: Hepatomegaly. No evidence of renal calculi or hydronephrosis. No evidence of acute abdominal-pelvic process.
--- NOTE | 2018-06-25 02:48 | CT ---
EXAM: CT Lumbar Spine Without Intravenous Contrast CLINICAL HISTORY: Reason: Pain TECHNIQUE: Axial computed tomography images of the lumbar spine without intravenous contrast. CTDI is 1089 mGy and DLP is 19.7 mGy-cm. This CT exam was performed using one or more of the following dose reduction techniques: automated exposure control, adjustment of the mA and/or kV according to patient size, and/or use of iterative reconstruction technique. COMPARISON: CT lumbar spine 10/27/2016 FINDINGS: Five presacral lumbar-type vertebral levels presumed for CT examination. Vertebrae: Lumbar vertebral height and alignment are within normal limits. No evidence of lumbar fracture or subluxation. Discs/spinal canal/neural foramina: L4-5 and L5-S1 mild disc bulging. No significant lumbar spinal stenosis. Soft tissues: Paraspinal soft tissues are unremarkable. IMPRESSION: No evidence of lumbar vertebral fracture or subluxation. Mild L4-5 and L5-S1 disc bulging.
[2018-06-25 03:17] VITALS: BP 140/89; RESP 20; TEMP 97
[2018-06-25 03:47] LABS: Appearance,Urine Clear (Clear); Bilirubin,Urine Negative (Negative); Blood,Urine Negative (Negative); Color,Urine Yellow; Glucose,Urine (UA) Negative (Negative); Ketones,Urine Negative (Negative); Leukocyte Esterase,Urine Negative (Negative); Nitrite,Urine Negative (Negative); Protein,Urine Negative (Negative); Specific Gravity,Urine 1.025 (1.001-1.035); Urobilinogen,Urine <2.0 mg/dL (<2.0)
--- NOTE | 2018-06-25 03:57 | ED ---
Back Pain HPI - General Chief Complaint: Back Pain/Injury Stated Complaint: flank pain Time Seen by Provider: 06/25/18 00:28 Source: patient Limitations: no limitations - History of Present Illness Initial Comments: 32-year-old female past history of chronic back pain presenting today for chief complaint of right side pain. Patient states she has had right side pain for the past 4 days, she states she was evaluated at the [facility] and left because she did not like how she was treated. Patient states that when she urinates she dribbles, she states she feels like she has not urinating at all out. Patient denies dysuria. She states that she has not been drinking a lot of water. Pt teaches history of herniated disc however her pain in her right flank does not feel like her herniated disc she states is is much more dull and not very pain. Pt states she coughed and peed on the way denies overt incontinence. Pt denies pain radiating down her legs she denies loss of sensation of the lower extremity she denies weakness of the lower extremities or loss of bowel control. Patient denies fever, chills, IV drug use, hematuria. Upon arrival pt is ambulating without difficulty appearing well. No signs of acute distress. VS WNL. Patient denies any recent shortness of breath, chest pain, abdominal pain, nausea or vomiting, numbness or tingling, dysuria or hemat uria, constipation or diarrhea, headaches or visual changes, or any other complaints. Pt denies . - Related Data Home Medications Medication Instructions Recorded Confirmed Levothyroxine Sodium [Synthroid] 50 mcg PO DAILY 12/19/15 11/16/17 Dextroamphetamine/Amphetamine 20 mg PO BID 10/19/16 11/16/17 [Adderall] Vortioxetine Hydrobromide 20 mg PO DAILY 11/16/17 11/16/17 [Trintellix] guaiFENesin [Mucinex] 600 mg PO BID 11/16/17 11/16/17 Previous Rx's Medication Instructions Recorded Albuterol Inhaler [Ventolin Hfa 1 - 2 puff INHALATION RT-Q6H PRN 11/16/17 Inhaler] #1 inhaler Ibuprofen [Motrin] 600 mg PO TID #30 tab 11/16/17 predniSONE 30 mg PO DAILY 5 Days #15 tab 11/16/17 Allergies Allergy/AdvReac Type Severity Reaction Status Date / Time No Known Allergies Allergy Verified 04/06/18 15:51 Review of Systems ROS Statement: Those systems with pertinent positive or pertinent negative responses have been documented in the HPI. ROS Other: All systems not noted in ROS Statement are negative. Past Medical History Past Medical History: Thyroid Disorder Additional Past Medical History / Comment(s): hypoglycema. History of Any Multi-Drug Resistant Organisms: None Reported Past Surgical History: Section Past Psychological History: ADD/ADHD, Bipolar, Depression Smoking Status: Former smoker Past Alcohol Use History: Occasional Past Drug Use History: Marijuana, Methamphetamine - Past Family History Father Family Medical History: Diabetes Mellitus General Exam - General Exam Comments Initial Comments: General: The patient is awake and alert, in no distress, and does not appear acutely ill. Eye: +3 mm pupils are equal, round and reactive to light, extra-ocular movements are intact. No nystagmus. There is normal conjunctiva bilaterally. No signs of icterus. Ears, nose, mouth and throat: There are moist mucous membranes and no oral lesions. Neck: The neck is supple, there is no tenderness or JVD. Cardiovascular: There is a regular rate and rhythm. No murmur, rub or gallop is appreciated. Respiratory: Lungs are clear to auscultation, respirations are non-labored, breath sounds are equal. No wheezes, stridor, rales, or rhonchi. Gastrointestinal: Soft, non-distended, non-tender abdomen without masses or organomegaly noted. There is no rebound or guarding present. No CVA tenderness. Bowel sounds are unremarkable. Musculoskeletal: Normal ROM, no tenderness. Strength 5/5. Sensation intact. Radial pulses equal bilaterally 2+. Neurological: A&O x 3. CN II-XII intact, There are no obvious motor or sensory deficits. Coordination appears grossly intact. Speech is normal. Skin: Skin is warm and dry and no rashes or lesions are noted. Psychiatric: Cooperative, appropriate mood & affect, normal judgment. Limitations: no limitations Course Vital Signs 06/24/18 06/25/18 23:22 03:00 Temperature 97.9 F 97 F L Pulse Rate 85 85 Respiratory 18 20 Rate Blood Pressure 126/75 140/89 O2 Sat by Pulse 98 96 Oximetry Medical Decision Making - Medical Decision Making 32-year-old female presenting for right-sided pain. Patient states she has history of bulging disc however this pain does not appear similar. She states that its dull. Pt states this was not concerning her as much as feel like when she pees she cannot get it all out. Post residual void was performed 0mL. It was repeat twice. Pt denies any bowel incontinence, leg pain, sensation deficits or other signs concerning for cauda equina. Rectal tone normal. CT revealed minimal stenosis. Small bulging disc. Pt CT abdomen revealed no stone, benign exam. Urinarlysis unremarkable at this time I feel pt has low back strain. Pain on exam is of the lower back muscle opposed to midline pain or CVA tenderness. Pt states she has not had very much water, mucous membranes dry on exam. I feel pt may be dehydrated with decreased production. Entire length of stay pt sitting comfortably, no distress.Pt was discharged after discussing case with attending provider who reviewed CT imaging studies. Agreeable with plan and discharge. Return parameters were discussed at length the patient who verbalizes understanding. Pt discharged appearing well. - Lab Data Lab Results 06/25/18 Range/Units 03:24 Urine Color Yellow Urine Appearance Clear (Clear) Urine pH 6.0 (5.0-8.0) Ur Specific [place] 1.025 (1.001-1.035) Urine Protein Negative (Negative) Urine Glucose (UA) Negative (Negative) Urine Ketones Negative (Negative) Urine Blood Negative (Negative) Urine Nitrite Negative (Negative) Urine Bilirubin Negative (Negative) Urine Urobilinogen <2.0 (<2.0) mg/dL Ur Leukocyte Esterase Negative (Negative) Disposition Clinical Impression: Acute exacerbation of chronic low back pain, Dehydration Disposition: HOME SELF-CARE Condition: Good Instructions (If sedation given, give patient instructions): Acute Low Back Pa in (ED) Additional Instructions: Please use medication as discussed. Please follow-up with family doctor in the next 2 days. Please return to emergency room if the symptoms increase or worsen or for any other concerns. Is patient prescribed a controlled substance at d/c from ED?: No Referrals: Ren Houston MD [Primary Care Provider] - 1-2 days Solo Walsh DO [Doctor of Osteopathic Medicine] - 1-2 days Time of Disposition: 03:57
== END 2018-06-25 04:00 | disposition home or self-care (01) ==
LOC: EC 23:18
DX: M54.5 Low back pain (principal); G89.29 Other chronic pain; E86.0 Dehydration; M51.86 Other intervertebral disc disorders, lumbar region; M99.73 Connective tissue and disc stenosis of intervertebral foramina of lumbar region; E07.9 Disorder of thyroid, unspecified; F31.9 Bipolar disorder, unspecified; F90.9 Attention-deficit hyperactivity disorder, unspecified type; Z87.891 Personal history of nicotine dependence; Z79.890 Hormone replacement therapy; Z79.899 Other long term (current) drug therapy
CPT/HCPCS: 72131; 74176; 81003; 99284

== ENCOUNTER 2018-09-21 19:14 | Emergency (ER) | payer OTHER ==
[2018-09-21 19:24] VITALS: RESP 18; TEMP 98.1
[2018-09-21] MEDS ORDERED: KETOROLAC 30 MG/ML 1 ML VIAL IM STA (21:04)
[2018-09-21] MEDS ORDERED: DIAZEPAM 5 MG TAB PO STA (21:04)
--- NOTE | 2018-09-21 22:08 | ED ---
General Adult HPI - General Chief complaint: Neck Pain/Injury Stated complaint: neck & shoulder pain Time Seen by Provider: 09/21/18 20:11 Source: patient, RN notes reviewed Mode of arrival: ambulatory Limitations: no limitations - History of Present Illness Initial comments: Meenakshi is a 33-year-old female presenting to the emergency determine for chief complaint of left-sided posterior neck pain. States that this has been ongoing for one day. States this occurred today when she was driving and looked over her right shoulder quickly to try to switch lanes quickly and felt a sharp pain on the left side of her neck. CT has been painful ever since. States she is also felt a lump there over the past month or so but it has been unchanged. Denies any midline neck pain. Denies any fevers or chills. He admits that the pain is radiating up into the back of her head and causing her to have a headache. States she also has some sharp shooting pains down her left arm but denies any weakness of her left arm.Patient has no other complaints at this time including shortness of breath, chest pain, abdominal pain, nausea or vomiting, or visual changes. - Related Data Home Medications Medication Instructions Recorded Confirmed Levothyroxine Sodium [Synthroid] 50 mcg PO DAILY 12/19/15 09/21/18 Previous Rx's Medication Instructions Recorded Cyclobenzaprine [Flexeril] 10 mg PO TID #12 tab 09/21/18 Ibuprofen [Motrin] 600 mg PO Q6H PRN #20 tab 09/21/18 Allergies Allergy/AdvReac Type Severity Reaction Status Date / Time No Known Allergies Allergy Verified 09/21/18 20:16 Review of Systems ROS Statement: Those systems with pertinent positive or pertinent negative responses have been documented in the HPI. ROS Other: All systems not noted in ROS Statement are negative. Past Medical History Past Medical History: Thyroid Disorder Additional Past Medical History / Comment(s): hypoglycema. History of Any Multi-Drug Resistant Organisms: None Reported Past Surgical History: Section Past Psychological History: ADD/ADHD, Bipolar, Depression Smoking Status: Former smoker Past Alcohol Use History: Occasional Past Drug Use History: Marijuana - Past Family History Father Family Medical History: Diabetes Mellitus General Exam Limitations: no limitations General appearance: alert, in no apparent distress Head exam: Present: atraumatic, normocephalic, normal inspection Eye exam: Present: normal appearance, PERRL, EOMI. Absent: scleral icterus, conjunctival injection, periorbital swelling ENT exam: Present: normal exam, mucous membranes moist Neck exam: Present: tenderness (Tenderness noted to the lateral paraspinal cervical muscle on the left side), full ROM (Patient does have full range motion however does have pain worse with looking to the right), other (Patient has tension and induration noted to the left paraspinal muscle, likely muscle spasm. No erythema, no significant tenderness to this area. No fluctuance or evidence of abscess). Absent: meningismus (Patient is able to fully flex and extend neck as well as rotate. Negative Kernig sign), lymphadenopathy Respiratory exam: Present: normal lung sounds bilaterally. Absent: respiratory distress, wheezes, rales, rhonchi, stridor Cardiovascular Exam: Present: regular rate, normal rhythm, normal heart sounds. Absent: systolic murmur, diastolic murmur, rubs, gallop, clicks GI/Abdominal exam: Present: soft, normal bowel sounds. Absent: distended, tenderness, guarding, rebound, rigid Neurological exam: Present: alert, oriented X3, CN II-XII intact Psychiatric exam: Present: normal affect, normal mood Course Vital Signs 09/21/18 19:22 Temperature 98.1 F Pulse Rate 99 Respiratory 18 Rate Blood Pressure 111/77 O2 Sat by Pulse 95 Oximetry Medical Decision Making - Medical Decision Making 33-year-old female presents to the emergency department for left-sided paraspinal muscle pain. Patient states she was trying to change lanes quickly today when she looked over her shoulder to the right and felt a sudden pain in the left side of her neck. States she has had this pain for the rest of the day. Denies any other injuries. States it does radiate to her left arm and sharp waves but denies any weakness. Sensation intact in the left upper extremity with ring 5 out of 5. Patient does have induration noted to the left superior paraspinal muscle, likely secondary to muscle spasm. Patient given Toradol and Valium, does have some improvement. Discussed further imaging at this time patient agrees to try anti-inflammatories and muscle relaxers and if it does not improve to return to the emergency department for further imaging. She will follow up with primary care in 1-2 days. Patient does have a ride home as she was given Valium. - Lab Data Lab Results 09/21/18 Range/Units 20:42 Urine HCG, Qual Not Detected (Not Detectd) Disposition Clinical Impression: Strain of neck muscle, Neck pain Disposition: HOME SELF-CARE Condition: Good Instructions (If sedation given, give patient instructions): Cervical Strain (ED) Additional Instructions: Please take Motrin as directed. Take this with food. Take Flexeril as directed but do not drive or operate machinery while taking this. Follow up with primary care tomorrow. If symptoms are worsening then return here to the emergency department. Prescriptions: Cyclobenzaprine [Flexeril] 10 mg PO TID #12 tab Ibuprofen [Motrin] 600 mg PO Q6H PRN #20 tab PRN Reason: Pain Is patient prescribed a controlled substance at d/c from ED?: No Referrals: Ren Houston MD [Primary Care Provider] - 1-2 days Time of Disposition: 22:06
[2018-09-21 22:21] VITALS: BP 110/76; PULSE 97
== END 2018-09-21 22:21 | disposition home or self-care (01) ==
LOC: EC 19:14
DX: S16.1XXA Strain of muscle, fascia and tendon at neck level, initial encounter (principal); E07.9 Disorder of thyroid, unspecified; Z79.890 Hormone replacement therapy; Z87.891 Personal history of nicotine dependence; X58.XXXA Exposure to other specified factors, initial encounter
CPT/HCPCS: 81025; 99283; 96372; J1885

== ENCOUNTER 2018-11-19 22:20 | Emergency (ER) | payer OTHER ==
[2018-11-19] MEDS ORDERED: IPRATROPIUM-ALBUTEROL 3 ML NEB INHALATION STA (23:37)
[2018-11-19] MEDS ORDERED: methylPREDNISolone SOD SUCCI 125 MG/2 ML VIAL IV STA (23:38)
[2018-11-19] MEDS ORDERED: methylPREDNISolone SOD SUCCI 125 MG/2 ML VIAL IM ONE (23:46)
[2018-11-20] MEDS ORDERED: KETOROLAC 30 MG/ML 1 ML VIAL IM STA (01:20)
[2018-11-20] MEDS ORDERED: LIDOCAINE 5% PATCH TOPICAL STA (01:20)
[2018-11-20] MEDS ORDERED: CYCLOBENZAPRINE 10MG STARTER 3 TAB BTL PO STA (01:21)
--- NOTE | 2018-11-20 01:48 | XR ---
EXAMINATION TYPE: XR chest 2V DATE OF EXAM: 11/20/2018 COMPARISON: 09/14/2017 HISTORY: Difficulty breathing TECHNIQUE: Frontal and lateral views of the chest are obtained. FINDINGS: Heart and mediastinum are normal. Lungs are clear. Diaphragm is normal. There are chest le ads. Bony thorax is intact. IMPRESSION: Normal chest. No change.
--- NOTE | 2018-11-20 01:55 | ED ---
General Adult HPI - General Chief complaint: Shortness of Breath Stated complaint: Diff Breathing Time Seen by Provider: 11/19/18 23:02 Source: patient Mode of arrival: ambulatory Limitations: no limitations - History of Present Illness Initial comments: Patient is a 33-year-old female with history of asthma is presenting to the emergency department with a chief complaint of shortness of breath. She reports her symptoms have started a few days ago with URI type symptoms and have since increased in severity. Patient reports a nonproductive cough with gradual shortness of breath. Patient reports dyspnea on exertion. Patient reports this is like her typical asthma exacerbation. Patient also reports over the past day she has developed chest pain but thinks it is due to the shortness of breath. The chest pain is nonradiating and is exacerbated with full inspiration. Patient is not a smoker. Patient does not have hypertension or hypercho lesterolemia. Patient reports she does not have an albuterol inhaler at home. Patient is also reporting bilateral ankle swelling and pain. Patient reports she has been on her feet for prolonged periods of time at her job. Patient reports her last day she has noticed bilateral swelling. Patient denies any recent travels with prolonged periods of inactivity. Patient is not , does not have any hypercoagulable conditions, is not on chemotherapy or taking any exogenous estrogens. Patient denies calf tenderness or unilateral leg swelling. Patient has no previous history of PE or DVT. Patient also reports a chronic history of low back pain. Patient also reports low back pain is been exacerbated over the past few days. Patient reports it is due to the extraneous activity that she has been having lately at her job. Patient denies any saddle anesthesia, urinary or bowel incontinence. - Related Data Home Medications Medication Instructions Recorded Confirmed Levothyroxine Sodium [Synthroid] 50 mcg PO DAILY 12/19/15 11/19/18 Previous Rx's Medication Instructions Recorded Ibuprofen [Motrin] 600 mg PO Q6H PRN #20 tab 09/21/18 Albuterol Inhaler [Ventolin Hfa 1 - 2 puff INHALATION RT-Q6H PRN 11/20/18 Inhaler] #1 inhaler Cyclobenzaprine [Flexeril] 10 mg PO TID #15 tab 11/20/18 predniSONE 20 mg PO DAILY #5 tab 11/20/18 Allergies Allergy/AdvReac Type Severity Reaction Status Date / Time No Known Allergies Allergy Verified 11/19/18 22:50 Review of Systems ROS Statement: Those systems with pertinent positive or pertinent negative responses have been documented in the HPI. ROS Other: All systems not noted in ROS Statement are negative. Past Medical History Past Medical History: Thyroid Disorder Additional Past Medical History / Comment(s): hypoglycemia. History of Any Multi-Drug Resistant Organisms: None Reported Past Surgical History: Section Past Psychological History: ADD/ADHD, Bipolar, Depression Smoking Status: Former smoker Past Alcohol Use History: Occasional Past Drug Use History: Marijuana - Past Family History Father Family Medical History: Diabetes Mellitus General Exam Limitations: no limitations General appearance: alert, in no apparent distress Head exam: Present: atraumatic, normocephalic, normal inspection Eye exam: Present: normal appearance, PERRL, EOMI Pupils: Present: normal accommodation ENT exam: Present: normal exam, mucous membranes moist, normal external ear exam Neck exam: Present: normal inspection, full ROM Respiratory exam: Present: wheezes (bilateral wheezing). Absent: rales, rhonchi, chest wall tenderness, decreased breath sounds Cardiovascular Exam: Present: regular rate, normal rhythm, normal heart sounds GI/Abdominal exam: Present: soft. Absent: tenderness, guarding Extremities exam: Present: normal inspection (+1 bilateral lower extremity edema), full ROM, normal capillary refill, pedal edema (+1), other (+2 dorsalis pedis and posterior tibialis bilaterally.). Absent: calf tenderness (Negative Homans bilaterally.) Back exam: Present: normal inspection, full ROM Neurological exam: Present: alert, oriented X3 Psychiatric exam: Present: normal affect, normal mood Skin exam: Present: warm, intact, normal color Course Vital Signs 11/19/18 11/19/18 11/19/18 22:24 22:30 23:51 Temperature 98.2 F 98.4 F Pulse Rate 85 80 Respiratory 20 20 20 Rate Blood Pressure 118/79 O2 Sat by Pulse 97 100 Oximetry 11/20/18 11/20/18 11/20/18 00:06 00:13 02:16 Temperature 98.8 F Pulse Rate 74 78 76 Respiratory 16 16 18 Rate Blood Pressure 107/69 O2 Sat by Pulse Oximetry EKG Findings - EKG Comments: EKG Findings:: Normal sinus rhythm. Ventricular rate 90, MD interval 160, QRS duration 98, QT/QTC 356/435,p-r-t aces 43 50 33 Medical Decision Making - Medical Decision Making Patient is a 33-year-old female presenting to the emergency department with a chief complaint of shortness of breath. I suspect the patient to have developed ankle edema due to continuous and prolonged standing at her job. Patient also has pain that has been alleviated and ankles after she was resting in the bed. There is no calf tenderness. Patient is PERC negative. Patient was given DuoNeb and 100 mg of Solu-Medrol. On reevaluation patient is not wheezing and states that she feels much better. Patient reports the chest pain has resolved. Patient also is only complaining of the back pain at this time. No cauda equina signs. Patient has good pulses bilaterally. Patient given a muscle relaxer which she typically takes for pain. Patient also given a Lidoderm patch and Toradol. On reevaluation patient reports she feels much better and is ready go home. EKG is unremarkable. Chest x-rays unremarkable. Patient has a heart score 1. Patient given an albuterol inhaler, prednisone. I suspect the patient is suffered an asthma exacerbation. Patient reports she often gets chest pain which she develops asthma exacerbations. At this time no further chest workup is warranted. Strict return parameters were thoroughly discussed with patient was understanding and agreeable. Case discussed with physician. Disposition Clinical Impression: Shortness of breath, Low back pain, Asthma exacerbation Disposition: HOME SELF-CARE Condition: Stable Instructions (If sedation given, give patient instructions): Asthma (ED) Additional Instructions: Please take prescribed medication as directed. Please follow with primary care. Presents to the emergency department symptoms worsen. Prescriptions: Cyclobenzaprine [Flexeril] 10 mg PO TID #15 tab predniSONE 20 mg PO DAILY #5 tab Albuterol Inhaler [Ventolin Hfa Inhaler] 1 - 2 puff INHALATION RT-Q6H PRN #1 inhaler PRN Reason: Shortness Of Breath Is patient prescribed a controlled substance at d/c from ED?: No Referrals: Ren Houston MD [Primary Care Provider] - 1-2 days Time of Disposition: 01:54
[2018-11-20 02:16] VITALS: BP 107/69; PULSE 76; RESP 18; TEMP 98.8
== END 2018-11-20 02:21 | disposition home or self-care (01) ==
LOC: EC 22:20
DX: J45.901 Unspecified asthma with (acute) exacerbation (principal); M54.5 Low back pain; E07.9 Disorder of thyroid, unspecified; Z79.890 Hormone replacement therapy; Z87.891 Personal history of nicotine dependence
CPT/HCPCS: 94640; 93005; 71046; 99285; 96372 ×2; J2930; J1885

== ENCOUNTER 2019-01-12 14:50 | Emergency (ER) | payer OTHER ==
[2019-01-12 15:00] VITALS: TEMP 97.6
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
[2019-01-12 16:19] VITALS: BP 115/70; PULSE 85; RESP 16
== END 2019-01-12 16:18 | disposition home or self-care (01) ==
LOC: EC 14:50
DX: O99.341 Other mental disorders complicating pregnancy, first trimester (principal); F41.9 Anxiety disorder, unspecified; O21.9 Vomiting of pregnancy, unspecified; O99.89 Other specified diseases and conditions complicating pregnancy, childbirth and the puerperium; R51 Headache; R42 Dizziness and giddiness; R07.9 Chest pain, unspecified; O99.281 Endocrine, nutritional and metabolic diseases complicating pregnancy, first trimester; E07.9 Disorder of thyroid, unspecified; Z87.891 Personal history of nicotine dependence; Z79.890 Hormone replacement therapy; Z53.29 Procedure and treatment not carried out because of patient's decision for other reasons; Z3A.12 12 weeks gestation of pregnancy; V89.2XXA Person injured in unspecified motor-vehicle accident, traffic, initial encounter; Y92.89 Other specified places as the place of occurrence of the external cause
CPT/HCPCS: 93005; 99284

== ENCOUNTER 2019-01-28 07:36 | Emergency (ER) | payer OTHER ==
[2019-01-28 07:42] VITALS: BP 107/57; PULSE 90; RESP 16; TEMP 98.2
--- NOTE | 2019-01-28 08:01 | ED ---
General Adult HPI - General Chief complaint: Urogenital Stated complaint: Poss uti/vomiting green Time Seen by Provider: 01/28/19 07:46 Source: patient, RN notes reviewed Mode of arrival: ambulatory Limitations: no limitations - History of Present Illness Initial comments: 33-year-old female currently 14 weeks presents to the emergency department for a chief complaint of urinary symptoms. Patient states she had some increased urinary frequency yesterday. States that this morning she had some dysuria with urination and then some spasms of her bladder following urination. Patient is concerned she may have a urinary tract infection. She denies any abdominal pain. Denies any vaginal bleeding.Patient has no other complaints at this time including shortness of breath, chest pain, abdominal pain, nausea or vomiting, headache, or visual changes. - Related Data Home Medications Medication Instructions Recorded Confirmed Levothyroxine Sodium [Synthroid] 50 mcg PO DAILY 12/19/15 11/19/18 Previous Rx's Medication Instructions Recorded Ibuprofen [Motrin] 600 mg PO Q6H PRN #20 tab 09/21/18 Albuterol Inhaler [Ventolin Hfa 1 - 2 puff INHALATION RT-Q6H PRN 11/20/18 Inhaler] #1 inhaler Cyclobenzaprine [Flexeril] 10 mg PO TID #15 tab 11/20/18 predniSONE 20 mg PO DAILY #5 tab 11/20/18 Allergies Allergy/AdvReac Type Severity Reaction Status Date / Time No Known Allergies Allergy Verified 01/28/19 07:38 Review of Systems ROS Statement: Those systems with pertinent positive or pertinent negative responses have been documented in the HPI. ROS Other: All systems not noted in ROS Statement are negative. Past Medical History Past Medical History: Thyroid Disorder Additional Past Medical History / Comment(s): Hypoglycemia. History of Any Multi-Drug Resistant Organisms: None Reported Past Surgical History: Section Past Psychological History: ADD/ADHD, Bipolar, Depression Smoking Status: Former smoker Past Alcohol Use History: Occasional Past Drug Use History: Marijuana - Past Family History Father Family Medical History: Diabetes Mellitus General Exam Limitations: no limitations General appearance: alert, in no apparent distress Head exam: Present: atraumatic, normocephalic, normal inspection Eye exam: Present: normal appearance, PERRL, EOMI. Absent: scleral icterus, conjunctival injection, periorbital swelling ENT exam: Present: normal exam, mucous membranes moist Neck exam: Present: normal inspection, full ROM. Absent: tenderness, meningismus, lymphadenopathy Respiratory exam: Present: normal lung sounds bilaterally. Absent: respiratory distress, wheezes, rales, rhonchi, stridor Cardiovascular Exam: Present: regular rate, normal rhythm, normal heart sounds. Absent: systolic murmur, diastolic murmur, rubs, gallop, clicks GI/Abdominal exam: Present: soft, normal bowel sounds. Absent: distended, tenderness (no abdominal tenderness), guarding, rebound, rigid Neurological exam: Present: alert Course Vital Signs 01/28/19 07:39 Temperature 98.2 F Pulse Rate 90 Respiratory 16 Rate Blood Pressure 107/57 O2 Sat by Pulse 94 L Oximetry Medical Decision Making - Medical Decision Making 33-year-old well-appearing female currently 14 weeks presents for dysuria and mild pubic cramping. This has been ongoing since today. No vaginal bleeding. No significant abdominal pain. Abdomen is nontender. Urinalysis was ordered. In the meantime I did perform a bedside ultrasound, heart rate around 140, fetus noted to be active in uterus. Urinalysis negative. Patient has seen OB and believe she has already been tested for gonorrhea and chlamydia. At this time given no vaginal bleeding or symptoms abdominal pain, negative urinalysis, and active fetus patient will be discharged home. She likely is having some bladder spasms as well as possible ligamentous pain. Recommended she follow up with OB. If she has any vaginal bleeding or worsening symptoms she is aware to return to the emergency department. I discussed this case with attending Dr. Kauffman who agrees with this assessment and treatment plan. - Lab Data Lab Results 01/28/19 Range/Units 07:50 Urine Color Light Yellow Urine Appearance Clear (Clear) Urine pH 6.5 (5.0-8.0) Ur Specific [place] 1.003 (1.001-1.035) Urine Protein Negative (Negative) Urine Glucose (UA) Negative (Negative) Urine Ketones Negative (Negative) Urine Blood Negative (Negative) Urine Nitrite Negative (Negative) Urine Bilirubin Negative (Negative) Urine Urobilinogen <2.0 (<2.0) mg/dL Ur Leukocyte Esterase Negative (Negative) Disposition Clinical Impression: Bladder spasms Disposition: HOME SELF-CARE Condition: Good Instructions (If sedation given, give patient instructions): Abdominal Pain in (ED) Additional Instructions: Please call your [facility] today for a follow-up. Please return to the emergency department if you have any worsening symptoms including vaginal bleeding or abdominal pain. Is patient prescribed a controlled substance at d/c from ED?: No Referrals: Ren Houston MD [Primary Care Provider] - 1-2 days Time of Disposition: 08:16
[2019-01-28 08:06] LABS: Appearance,Urine Clear (Clear); Bilirubin,Urine Negative (Negative); Blood,Urine Negative (Negative); Color,Urine Light Yellow; Glucose,Urine (UA) Negative (Negative); Ketones,Urine Negative (Negative); Leukocyte Esterase,Urine Negative (Negative); Nitrite,Urine Negative (Negative); PH, Urine 6.5 (5.0-8.0); Protein,Urine Negative (Negative); Specific Gravity,Urine 1.003 (1.001-1.035); Urobilinogen,Urine <2.0 mg/dL (<2.0)
== END 2019-01-28 08:23 | disposition home or self-care (01) ==
LOC: EC 07:36
DX: O99.89 Other specified diseases and conditions complicating pregnancy, childbirth and the puerperium (principal); N32.89 Other specified disorders of bladder; O99.282 Endocrine, nutritional and metabolic diseases complicating pregnancy, second trimester; E07.9 Disorder of thyroid, unspecified; Z3A.14 14 weeks gestation of pregnancy; Z79.890 Hormone replacement therapy; Z87.891 Personal history of nicotine dependence
CPT/HCPCS: 81003; 99283

== ENCOUNTER 2019-04-27 22:47 | Outpatient (CLI) | payer OTHER ==
[2019-04-27 23:30] VITALS: BP 134/63; PULSE 85; RESP 16; TEMP 97.7
== END 2019-04-27 23:20 | disposition home or self-care (01) ==
LOC: FBPOP 22:47
PROVIDERS: ATTEND Obstetrics & Gynecology
DX: O99.89 Other specified diseases and conditions complicating pregnancy, childbirth and the puerperium (principal); R51 Headache; Z3A.26 26 weeks gestation of pregnancy
CPT/HCPCS: 99213

== ENCOUNTER 2019-05-07 14:52 | Outpatient (CLI) | payer OTHER ==
[2019-05-07 16:10] LABS: Amorphous Sediment,Urine Rare /hpf; Appearance,Urine Cloudy (Clear); Bilirubin,Urine Negative (Negative); Blood,Urine Negative (Negative); Color,Urine Light Yellow; Glucose,Urine (UA) Negative (Negative); Ketones,Urine Negative (Negative); Leukocyte Esterase,Urine Negative (Negative); Mucus,Urine Rare /hpf; Nitrite,Urine Negative (Negative); Protein,Urine Negative (Negative); RBC,Urine <1 /hpf (0-5); Specific Gravity,Urine 1.015 (1.001-1.035); Squamous Epithelial Cell,Urine 4 /hpf (0-4); Urobilinogen,Urine <2.0 mg/dL (<2.0); WBC,Urine 4 /hpf (0-5)
[2019-05-07 16:34] VITALS: BP 114/64; PULSE 69; RESP 16; TEMP 98.4
--- NOTE | 2019-05-23 15:40 | P.MSEPDOC ---
Presenting Problems - Arrival Data Date of Arrival on Unit: 05/07/19 Time of Arrival on Unit: 15:50 Mode of Transport: Wheelchair - Complaint OB-Reason for Admission/Chief Complaint: Possible Onset of Labor, Vaginal Bleeding, Pain Comment: dropped can on foot and toe last night. came to be evaluated in er for that Medical History - Information : 3 Para: 2 Term: 2 : 0 Abortions: Spontaneous or Elective: 0 Number of Living Children: 2 - Gestational Age Gestational Age by JAY (wks/days): 27 Weeks and 4 Days - History Complications: Other Comment: low lying placenta earlier in preg. resolved now. influencia two weeks ago Review of Systems - Review of Systems Constitutional: No problems Breast: No problems ENT: No problems Cardiovascular: No problems Respiratory: No problems Gastrointestinal: No problems Genitourinary: No problems Musculoskeletal: No problems Neurological: No problems Skin: No problems Comment: current back pain = pain scale =4. and cramping. Vital Signs - Temperature Temperature: 98.4 F Temperature Source: Temporal Artery Scan - Pulse Right Radial Pulse Rate: 69 Pulse Assessment Method: Automatic Cuff - Respirations Respiratory Rate: 16 O2 Sat by Pulse Oximetry: 99 - Blood Pressure Right Arm Blood Pressure: 114/64 Blood Pressure Mean: 80 Blood Pressure Source: Automatic Cuff Medical Screen Scoring (Pre) - Cervical Exam Dilation: 0 cm = 0 Membranes: Intact - Uterine Contractions Frequency: N/A Duration: N/A Intensity: N/A - Maternal Vital Signs Maternal Temperature: N/A Maternal Blood Pressure: N/A Signs of Preeclampsia: N/A Maternal Respirations: N/A - Maternal Trauma Maternal Trauma: N/A - Assessment - Baby A Baseline FHR: 140 Heart Rate - NICHD Category: Category I (Normal) = 0 NST: Reactive Position: N/A Station: N/A - Total Score - Baby A Total Score - Baby A: 0 - Total Score - Baby B Total Score - Baby B: 0 - Total Score - Baby C Total Score - Baby C: 0 - Level of Risk - Baby A Level of Risk - Baby A: Low (0-5) - Level of Risk - Baby B Level of Risk - Baby B: Low (0-5) - Level of Risk - Baby C Level of Risk - Baby C: Low (0-5) Physician Notification (Pre) - Physician Notified Physician Notified Date: 05/07/19 Physician Notified Time: 15:50 New Order Received: Yes - Notification Comment Comment: report on spotting last night , none today. cramping in back, and rt foot and toe that can feel on. to be seen in er. cervix closed/ no bleeding seen. Disposition - Disposition OB Disposition: Transfer to other dept./facility, Written follow up instructions reviewed Transferred to:: er for foot evaluation Discharge Date: 05/07/19 Discharge Time: 16:20 I agree with the RN Medical Screening Exam: Yes Risk & Benefit of care provided described in d/c instruction: Yes Diagnosis: RELATED CONDITIONS, UNSPECIFIED, SECOND TRIMESTER
== END 2019-05-07 16:20 | disposition home or self-care (01) ==
LOC: FBPOP 14:52
PROVIDERS: ATTEND Obstetrics & Gynecology
DX: O26.92 Pregnancy related conditions, unspecified, second trimester (principal); Z3A.27 27 weeks gestation of pregnancy
CPT/HCPCS: 81001; G0463; 99213

== ENCOUNTER 2019-05-07 16:22 | Emergency (ER) | payer OTHER ==
--- NOTE | 2019-05-07 17:09 | ED ---
Lower Extremity Injury HPI - General Chief Complaint: Extremity Injury, Lower Stated Complaint: Toe/foot Injury Time Seen by Provider: 05/07/19 16:40 Source: patient Mode of arrival: wheelchair Limitations: no limitations - History of Present Illness Initial Comments: 33-year-old female presenting for right third toe pain patient states that she dropped a can of antistick cooking spray on the third toenail approximately 2 days ago. Bruised under toenail, Patient concerned for fracture and presented for evaluation after she was evaluated for cramping on the labor and delivery floor where she was cleared for evaluation by her OBGYN for evaluation in the ER. Patient denies foot pain, ankle pain or fall. Patient denies any other complaints. Upon arrival patient appears well there is no signs of acute distress. - Related Data Home Medications Medication Instructions Recorded Confirmed Levothyroxine Sodium [Synthroid] 50 mcg PO DAILY 12/19/15 05/07/19 Pnv No.95/Ferrous Fum/Folic AC 1 each PO DAILY 04/27/19 05/07/19 [ Multivitamin Tablet] Previous Rx's Medication Instructions Recorded Albuterol Inhaler [Ventolin Hfa 1 - 2 puff INHALATION RT-Q6H PRN 11/20/18 Inhaler] #1 inhaler Allergies Allergy/AdvReac Type Severity Reaction Status Date / Time No Known Allergies Allergy Verified 05/07/19 16:29 Review of Systems ROS Statement: Those systems with pertinent positive or pertinent negative responses have been documented in the HPI. ROS Other: All systems not noted in ROS Statement are negative. Past Medical History Past Medical History: Thyroid Disorder Additional Past Medical History / Comment(s): Hypoglycemia. History of Any Multi-Drug Resistant Organisms: None Reported Past Surgical History: Section Past Psychological History: ADD/ADHD, Bipolar, Depression Smoking Status: Never smoker Past Alcohol Use History: None Reported Past Drug Use History: None Reported - Past Family History Father Family Medical History: Diabetes Mellitus General Exam - General Exam Comments Initial Comments: General: The patient is awake and alert, in no distress, and does not appear acutely ill. Eye: Pupils are equal, round and reactive to light, extra-ocular movements are intact. No nystagmus. There is normal conjunctiva bilaterally. No signs of icterus. Cardiovascular: There is a regular rate and rhythm. No murmur, rub or gallop is appreciated. Respiratory: Lungs are clear to auscultation, respirations are non-labored, breath sounds are equal. No wheezes, stridor, rales, or rhonchi. Musculoskeletal: Subungual hematoma 100%, toenail not raised noted the third digit of the right foot. No proximal foot swelling or redness. No open lacerations or abrasions noted. Normal ROM, no tenderness. Strength 5/5. Sensation intact. DP pulses equal bilaterally 2+. No LE edema. Neurological: A&O x 3. CN II-XII intact grossly, There are no obvious motor or sensory deficits. Coordination appears grossly intact. Speech is normal. Skin: Skin is warm and dry and no rashes or lesions are noted. Psychiatric: Cooperative, appropriate mood & affect, normal judgment. Limitations: no limitations Course Vital Signs 05/07/19 05/07/19 16:27 17:42 Temperature 97.8 F 98 F Pulse Rate 88 78 Respiratory 20 16 Rate Blood Pressure 114/72 116/78 O2 Sat by Pulse 99 98 Oximetry Medical Decision Making - Medical Decision Making Focal exam findings consistent with subungual hematoma. X-ray revealed a tuft fracture. There is no evidence of bleeding around the toenail, open lacerations or abrasions. I discussed options of trepanation as well as removal of toenail patient refused. Patient tetanus UTD. Patient will be discharged with PCP f/u. Discussed symptomatic treatment and importance of close monitoring for redness surrounding toe patient verbalized understanding was discharged appearing well after discussing case with Dr. Soni he is agreeable to care plan and discharge. Disposition Clinical Impression: Toe fracture, right, Subungual hematoma of third toe of right foot Disposition: HOME SELF-CARE Condition: Good Instructions (If sedation given, give patient instructions): Subungual Hematoma (ED), Toe Fracture (ED) Additional Instructions: Please use medication as discussed. Please follow-up with family doctor in the next 2 days. Rest ice compress and elevate foot. Please return to emergency room if the symptoms increase or worsen or for any other concerns. Is patient prescribed a controlled substance at d/c from ED?: No Referrals: Ren Houston MD [Primary Care Provider] - 1-2 days Time of Disposition: 17:30
--- NOTE | 2019-05-07 17:17 | XR ---
EXAMINATION TYPE: XR foot complete RT DATE OF EXAM: 05/07/2019 COMPARISON: NONE HISTORY: Foot pain TECHNIQUE: 3 views FINDINGS: Metatarsals appear intact. There is a small 3 mm chip fracture of the tuft of the distal ph alanx of the middle toe. IMPRESSION: Small tuft fracture of the middle toe distal phalanx on the lateral aspect.
[2019-05-07 17:43] VITALS: BP 116/78; PULSE 78; RESP 16; TEMP 98
== END 2019-05-07 17:42 | disposition home or self-care (01) ==
LOC: EC 16:22
DX: S92.531A Displaced fracture of distal phalanx of right lesser toe(s), initial encounter for closed fracture (principal); E07.9 Disorder of thyroid, unspecified; Z79.890 Hormone replacement therapy; Z53.20 Procedure and treatment not carried out because of patient's decision for unspecified reasons; W20.8XXA Other cause of strike by thrown, projected or falling object, initial encounter; Y92.69 Other specified industrial and construction area as the place of occurrence of the external cause
CPT/HCPCS: 99283

== ENCOUNTER → 2019-07-22 | Outpatient (CLI) | payer OTHER | END | disposition home or self-care (01) | LOC: LABWHC1 11:14 | PROVIDERS: ATTEND Obstetrics & Gynecology | DX: Z11.59 Encounter for screening for other viral diseases (principal) | CPT/HCPCS: 87635 ==

== ENCOUNTER 2019-07-26 06:08 | Inpatient (IN) | payer OTHER ==
[2019-07-20 12:03] VITALS: BMI 44.9
--- NOTE | 2019-07-21 16:15 | P.HPOB ---
History of Present Illness H&P Date: 07/21/19 Chief Complaint: Intrauterine : Prior sections Patient is a 33-year-old at 39 weeks gestation who arrives for repeat section. Risks/benefits/alternatives to this procedure were reviewed with the patient in detail and all questions were answered for the patient prior to proceeding to the operating room. Patient's Precis course has been, K by a significant depressive episode at approximately 12 weeks. She did seek care with counseling and has remained stable through the remainder the . She is also a hypothyroid patient and the thyroid medicine has helped. She also has a history of HSV and has been on therapy for that. During the latter part of she had no other symptoms or problems and following passage of a 3 her Glucola screen she has done well. Risks/benefits/alternatives to repeat section were reviewed with the patient in detail and all questions were answered for her prior to proceeding to the operative room. Past Medical History Past Medical History: Asthma, GERD/Reflux, Thyroid Disorder Additional Past Medical History / Comment(s): seizure x1 at 18 yrs old (states due to overdose),? TIA 2017., seasonal asthma., Hypoglycemia. ,frequent diarrhea., hypothyroid., -LMP Sep 2018., States carpal tunnel syndrome mateus. hands. History of Any Multi-Drug Resistant Organisms: None Reported Past Surgical History: Section Past Anesthesia/Blood Transfusion Reactions: Postoperative Nausea & Vomiting (PONV) Smoking Status: Former smoker - Past Family History Father Family Medical History: Diabetes Mellitus Medications and Allergies Home Medications Medication Instructions Recorded Confirmed Type Levothyroxine Sodium [Synthroid] 50 mcg PO DAILY 12/19/15 07/20/19 History Pnv No.95/Ferrous Fum/Folic AC 1 each PO DAILY 04/27/19 07/20/19 History [ Multivitamin Tablet] Acetaminophen Tab [Tylenol] 650 mg PO DIRECTED PRN 07/20/19 07/20/19 History Cannabidiol (Cbd) Extract 0 mg PO DIRECTED 07/20/19 07/20/19 History [Epidiolex] Ferrous Sulfate [Iron] 325 mg PO DAILY 07/20/19 07/20/19 History Mag/Aluminum/Sod Bicarb/Alginc 1 each PO DIRECTED PRN 07/20/19 07/20/19 History [Gaviscon 80-14.2 mg Tab Chew] Allergies Allergy/AdvReac Type Severity Reaction Status Date / Time No Known Allergies Allergy Verified 07/20/19 11:52 Exam Osteopathic Statement: *. No significant issues noted on an osteopathic structural exam other than those noted in the History and Physical/Consult. - OBG Physical Exam Breast: both: normal (no masses) Abdomen: bowel sounds normal, no diffuse tenderness, no bruit present, no guarding noted, no hepatomegaly, no splenomegaly, no mass Vulva: both: normal Vagina: normal moisture, no discharge Cervix: no lesion, no discharge Uterus: normal size, normal contour Adnexa: both: normal Anus/Rectum: normal perianal skin, no rectal mass, no hemorrhoids, heme negative
[2019-07-26] MEDS ORDERED: CITRIC ACID-SODIUM CITRATE 15 ML CUP PO ONE (06:16)
[2019-07-26 06:58] LABS: Basophils % (A) 0 %; Eosinophils # (A) 0.2 k/uL (0-0.7); Eosinophils % (A) 2 %; HCT 33.7 % (34.0-46.0); HGB 10.8 gm/dL (11.4-16.0); Lymphocytes # (A) 2.5 k/uL (1.0-4.8); Lymphocytes % (A) 25 %; MCH 27.9 pg (25.0-35.0); MCHC 32.2 g/dL (31.0-37.0); MCV 86.7 fL (80.0-100.0); Mean Platelet Volume 7.9; Monocytes # (A) 0.6 k/uL (0-1.0); Monocytes % (A) 6 %; Neutrophils # (A) 6.9 k/uL (1.3-7.7); Neutrophils % (A) 67 %; Platelet Count 271 k/uL (150-450); RBC 3.88 m/uL (3.80-5.40); RDW 14.9 % (11.5-15.5); WBC 10.3 k/uL (3.8-10.6)
[2019-07-26] MEDS: LACTATED RINGERS 1,000 ML IV SCH ×5 (07:32→22:45)
[2019-07-26] MEDS ORDERED: DEXAMETHASONE SOD PHOS (MDV) 100 MG/10 ML VIAL ONE (07:53)
[2019-07-26] MEDS ORDERED: ePHEDrine SULFATE/0.9% NACL/PF 50 MG/5 ML SYRINGE IV ONE (07:53)
[2019-07-26] MEDS ORDERED: fentaNYL (PF) 50 MCG/ML 2 ML AMP ONE (07:53)
[2019-07-26] MEDS ORDERED: MORPHINE SULFATE (PF) 0.3 MG/0.3 ML SYR ONE (07:53)
[2019-07-26] MEDS ORDERED: KETOROLAC 30 MG/ML 1 ML VIAL ONE (07:53)
[2019-07-26] MEDS ORDERED: ONDANSETRON 4 MG/2 ML VIAL ONE (07:53)
[2019-07-26] MEDS ORDERED: OXYTOCIN 10 UNIT/ML 1 ML VIAL ONE (07:53)
[2019-07-26] MEDS ORDERED: diphenhydrAMINE 25 MG CAP PO PRN (08:36)
[2019-07-26] MEDS ORDERED: diphenhydrAMINE 50 MG/ML 1 ML VIAL IVP PRN ×2 (08:36)
[2019-07-26] MEDS ORDERED: ZOLPIDEM 5 MG TAB PO PRN (08:36)
[2019-07-26] MEDS ORDERED: diphenhydrAMINE 50 MG CAP PO PRN (08:36)
[2019-07-26] MEDS ORDERED: KETOROLAC 30 MG/ML 1 ML VIAL IVP PRN (08:36)
[2019-07-26] MEDS ORDERED: ONDANSETRON 4 MG/2 ML VIAL IVP PRN (08:36)
[2019-07-26] MEDS ORDERED: ACETAMINOPHEN TAB 325 MG TAB PO PRN (08:36)
[2019-07-26] MEDS ORDERED: METOCLOPRAMIDE 5 MG/ML 2 ML VIAL IVP PRN (08:36)
[2019-07-26] MEDS ORDERED: NALOXONE 0.4 MG/ML 1 ML VIAL IV PRN (08:36)
--- NOTE | 2019-07-26 08:40 | P.OP ---
Date of Procedure: 07/26/19 Preoperative Diagnosis: Intrauterine at term: Prior section Postoperative Diagnosis: Same Procedure(s) Performed: Repeat low transverse section Anesthesia: spinal Surgeon: Spencer [facility] Attendant #1: Evelyn Montoya Estimated Blood Loss (ml): 700 IV fluids (ml): 700 Urine output (ml): 50 Pathology: none sent Condition: stable Disposition: floor Operative Findings: Female scores of 9 and 9 at one and 5 minutes respectively and weight of 8 lbs. 0 oz. Description of Procedure: Patient was taken to the operating suite where a spinal anesthetic was found be adequate. She was prepped and draped in normal sterile fashion and placed in dorsal supine position with leftward tilt. Initially a Pfannenstiel skin incision was made and this incision was then carried through to underlying layer of the fascia was second knife. Fascia was then nicked in the midline and this opening was extended laterally with Richards scissors. Superior and inferior aspect of this incision were then grasped tented up and bluntly and sharply dissected off the rectus muscles. Rectus muscles were then divided midline and sharp dissection the peritoneum was done. This opening was then extended superiorly and inferiorly with good visualization of both bowel bladder. Bladder blade was then placed bladder flap identified and her with metastases scissors carried across face uterus bluntly dissected the bladder out of the operative field. Knife was then used to incise uterus and this opening was fully developed with hemostat. Uterus was then bluntly extended and head was atraumatically delivered. A nuchal cord 1 was reduced and anterior posterior shoulders from left occiput transverse position easily delivered. Once baby was fully delivered mouth nares were again bulb suctioned and umbilical cord was clamped cut usual fashion with nursery personnel present to assume care. Placenta was then delivered intact and Pitocin was added to the IV. Uterus was then exteriorized cleared of clots and debris and closed in 2 layers with 0 Vicryl suture. Once excellent hemostasis was obtained blood and debris was suctioned posterior cul-de-sac and uterus was reinserted into the abdomen. Peritoneal layer was then delineated with hemostats and closed with 2-0 Vicryl. Fascial layer was then closed with 0 Vicryl suture. One layer of 3-0 Vicryl was placed in deep subcuticular tissue true process skin and close space. Skin was then closed with 3-0 Vicryl subcuticularly. Sponge, lap, needle counts were all correct 2. Patient was then taken to the recovery room in stable and satisfactory condition.
[2019-07-26 16:54] LABS: Basophils % (A) 0 %; Eosinophils # (A) 0.1 k/uL (0-0.7); Eosinophils % (A) 1 %; HCT 32.5 % (34.0-46.0); HGB 10.5 gm/dL (11.4-16.0); Lymphocytes # (A) 1.3 k/uL (1.0-4.8); Lymphocytes % (A) 10 %; MCH 27.8 pg (25.0-35.0); MCHC 32.2 g/dL (31.0-37.0); MCV 86.2 fL (80.0-100.0); Mean Platelet Volume 7.9; Monocytes # (A) 0.4 k/uL (0-1.0); Monocytes % (A) 3 %; Neutrophils # (A) 11.3 k/uL (1.3-7.7); Neutrophils % (A) 86 %; Platelet Count 254 k/uL (150-450); RBC 3.77 m/uL (3.80-5.40); RDW 14.7 % (11.5-15.5); WBC 13.2 k/uL (3.8-10.6)
[2019-07-26] MEDS: SENNOSIDES-DOCUSATE SODIUM 1 EACH TAB PO SCH (22:46)
[2019-07-27] MEDS: LACTATED RINGERS 1,000 ML IV SCH ×4 (02:31→20:31)
[2019-07-27] MEDS: IBUPROFEN 600 MG TAB PO PRN ×2 (03:23→12:45)
[2019-07-27 03:46] LABS: Basophils % (A) 0 %; Eosinophils # (A) 0.1 k/uL (0-0.7); Eosinophils % (A) 1 %; HCT 31.3 % (34.0-46.0); HGB 10.2 gm/dL (11.4-16.0); Lymphocytes # (A) 2.5 k/uL (1.0-4.8); Lymphocytes % (A) 19 %; MCH 27.9 pg (25.0-35.0); MCHC 32.5 g/dL (31.0-37.0); MCV 85.8 fL (80.0-100.0); Monocytes # (A) 0.8 k/uL (0-1.0); Monocytes % (A) 6 %; Neutrophils # (A) 9.7 k/uL (1.3-7.7); Neutrophils % (A) 73 %; Platelet Count 246 k/uL (150-450); RBC 3.65 m/uL (3.80-5.40); RDW 14.9 % (11.5-15.5); WBC 13.3 k/uL (3.8-10.6)
--- NOTE | 2019-07-27 06:25 | P.PN ---
Progress Note - Text Progress Note Date: 07/27/19 Postoperative day 1 status post C/S under general anesthesia with intrath ecal Duramorph for postoperative analgesia.The patient is doing well, there is mild generalized skin itching. The patient denies any paresthesia or weakness in the lower extremities There are no other anesthesia related complications. Further management as per the patient primary team.
[2019-07-27] MEDS: HYDROcodone/APAP 7.5-325MG 1 EACH TAB PO PRN ×3 (07:52→21:31)
[2019-07-27] MEDS: SENNOSIDES-DOCUSATE SODIUM 1 EACH TAB PO SCH ×2 (07:52→20:32)
--- NOTE | 2019-07-27 09:29 | P.PNOBGPC ---
Subjective - Subjective Principal diagnosis: Postop day 1 Interval history: Patient is doing very well postop day 1. She is ambulating, voiding and tolerating her diet. She voices no complaints. Hemoglobin stable at 10.2. All questions are answered for her at this time. We'll plan to continue current care with increase in diet as well. Patient reports: Reports appetite normal, Reports voiding normally, Reports pain well controlled, Reports ambulating normally [place]: doing well Objective - Vital Signs Latest vital signs: Vital Signs Temp Pulse Resp BP Pulse Ox 07/27/19 04:00 98.0 F 82 18 99/56 07/26/19 22:55 97.8 F 87 16 98/53 07/26/19 22:53 88 18 07/26/19 20:00 97.7 F 88 18 94/52 07/26/19 16:33 97.9 F 80 17 99/65 97 07/26/19 12:00 97.7 F 83 16 98/55 94 L 07/26/19 10:49 97.6 F 86 16 100/58 07/26/19 10:17 97.6 F 82 16 99/52 07/26/19 09:44 97.4 F L 92 16 116/59 98 07/26/19 09:29 88 16 109/56 96 Intake and Output 07/26/19 07/27/19 07/27/19 22:59 06:59 14:59 Intake Total 750 500 Output Total 400 1100 Balance 350 -600 Intake: Oral 750 500 Output: Urine 400 1100 Straight 400 Uretheral (Gutierrez) 400 Other: Voiding Method Indwelling Catheter # Voids 1 - Exam Lungs: bilateral: normal Chest: Normal S1, Normal S2 Extremities: Present: normal Abdomen: Present: normal appearance, soft. Absent: distention, tenderness Incision: Present: normal, dry, intact Uterus: Present: normal, firm - Labs Labs: Abnormal Lab Results - Last 24 Hours (Table) 07/26/19 07/27/19 Range/Units 16:45 03:31 WBC 13.2 H 13.3 H (3.8-10.6) k/uL RBC 3.77 L 3.65 L (3.80-5.40) m/uL Hgb 10.5 L 10.2 L (11.4-16.0) gm/dL Hct 32.5 L 31.3 L (34.0-46.0) % Neutrophils # 11.3 H 9.7 H (1.3-7.7) k/uL
[2019-07-27] MEDS ORDERED: IBUPROFEN 600 MG TAB PO ONE (20:00)
[2019-07-27] MEDS ORDERED: SENNOSIDES-DOCUSATE SODIUM 1 EACH TAB PO ONE (20:00)
[2019-07-28] MEDS: IBUPROFEN 600 MG TAB PO PRN ×3 (02:32→18:01)
[2019-07-28] MEDS: HYDROcodone/APAP 7.5-325MG 1 EACH TAB PO PRN ×3 (08:15→21:36)
[2019-07-28] MEDS: SENNOSIDES-DOCUSATE SODIUM 1 EACH TAB PO SCH ×2 (08:15→20:29)
--- NOTE | 2019-07-28 09:03 | P.PNOBGPC ---
Subjective - Subjective Principal diagnosis: Post op day 2 Interval history: doing well other than incisional pain. ambulating and voiding without difficulty Patient reports: Reports appetite normal, Reports voiding normally, Reports pain well controlled, Reports ambulating normally : doing well Objective - Vital Signs Latest vital signs: Vital Signs Temp Pulse Resp BP Pulse Ox 07/28/19 08:15 97.6 F 84 16 122/79 100 07/27/19 23:40 97.8 F 82 18 113/77 96 Intake and Output 07/27/19 07/28/19 07/28/19 22:59 06:59 14:59 Other: # Voids 1 - Exam Lungs: bilateral: normal Chest: Normal S1, Normal S2 Extremities: Present: normal Abdomen: Present: normal appearance, soft. Absent: distention, tenderness Incision: Present: normal, dry, intact Uterus: Present: normal, firm
[2019-07-29] MEDS: HYDROcodone/APAP 7.5-325MG 1 EACH TAB PO PRN ×2 (03:14→11:53)
--- NOTE | 2019-07-29 07:51 | P.DS ---
Providers Date of admission: 07/26/19 06:08 Expected date of discharge: 07/29/19 Attending physician: Spencer Fam Primary care physician: Stated None Hospital Course: Patient is doing very well this morning. She is ambulating, voiding and tolerating her diet. She is had a bowel movement. Vital signs are stable and afebrile. Heart regular, lungs clear, extremities without pain. Abdomen soft is firm and lochia is reported light. Her incision is otherwise clean dry and intact. Discharge instructions have been thoroughly reviewed and all questions were answered for her prior to her discharge. Prescriptions for [place] and Motrin are 40 to her pharmacy as was a breast pump. All the questions are answered and she is stable for discharge at this time. She'll follow up with me in 1 week. Patient Condition at Discharge: Good Plan - Discharge Summary New Discharge Prescriptions: New Ibuprofen [Motrin] 600 mg PO Q6HR PRN #30 tab PRN Reason: Pain HYDROcodone/APAP 5-325MG [[place] 5-325] 1 tab PO Q4HR PRN #30 tab PRN Reason: Pain No Action Levothyroxine Sodium [Synthroid] 50 mcg PO DAILY Pnv No.95/Ferrous Fum/Folic AC [ Multivitamin Tablet] 1 each PO DAILY Ferrous Sulfate [Iron] 325 mg PO DAILY Acetaminophen Tab [Tylenol] 650 mg PO DIRECTED PRN PRN Reason: Pain Cannabidiol (Cbd) Extract [Epidiolex] 0 mg PO DIRECTED Discharge Medication List Levothyroxine Sodium [Synthroid] 50 mcg PO DAILY 12/19/15 [History] Pnv No.95/Ferrous Fum/Folic AC [ Multivitamin Tablet] 1 each PO DAILY 04/27/19 [History] Acetaminophen Tab [Tylenol] 650 mg PO DIRECTED PRN 07/20/19 [History] Cannabidiol (Cbd) Extract [Epidiolex] 0 mg PO DIRECTED 07/20/19 [History] Ferrous Sulfate [Iron] 325 mg PO DAILY 07/20/19 [History] HYDROcodone/APAP 5-325MG [[place] 5-325] 1 tab PO Q4HR PRN #30 tab 07/29/19 [Rx] Ibuprofen [Motrin] 600 mg PO Q6HR PRN #30 tab 07/29/19 [Rx] Follow up Appointment(s)/Referral(s): Spencer Fam DO [Doctor of Osteopathic Medicine] - 1 Week Activity/Diet/Wound Care/Special Instructions: No heavy lifting, limit stairs and driving, and pelvic rest. If any high temperatures, heavy bleeding, or severe pain call my office Discharge Disposition: HOME SELF-CARE
[2019-07-29] MEDS: SENNOSIDES-DOCUSATE SODIUM 1 EACH TAB PO SCH (08:03)
[2019-07-29] MEDS: IBUPROFEN 600 MG TAB PO PRN (08:03)
[2019-07-29 09:23] VITALS: BP 118/81; PULSE 91; RESP 16; TEMP 98.6
== END 2019-07-29 13:00 | disposition home or self-care (01) | DRG 787 ==
LOC: 4FBP 06:08
PROVIDERS: ADMIT Obstetrics & Gynecology; ATTEND Obstetrics & Gynecology
PROC: 10D00Z1 Extraction of Products of Conception, Low, Open Approach (ICD-10-PCS; principal; 2019-07-26 08:00)
DX: O34.211 Maternal care for low transverse scar from previous cesarean delivery (principal); O99.354 Diseases of the nervous system complicating childbirth; O69.81X0 Labor and delivery complicated by cord around neck, without compression, not applicable or unspecified; O99.284 Endocrine, nutritional and metabolic diseases complicating childbirth; E03.9 Hypothyroidism, unspecified; O99.344 Other mental disorders complicating childbirth; F32.9 Major depressive disorder, single episode, unspecified; O99.52 Diseases of the respiratory system complicating childbirth; J45.909 Unspecified asthma, uncomplicated; K21.9 Gastro-esophageal reflux disease without esophagitis; G56.03 Carpal tunnel syndrome, bilateral upper limbs; O99.62 Diseases of the digestive system complicating childbirth; Z37.0 Single live birth; Z3A.39 39 weeks gestation of pregnancy; Z87.891 Personal history of nicotine dependence; Z86.73 Personal history of transient ischemic attack (TIA), and cerebral infarction without residual deficits; Z79.890 Hormone replacement therapy; Z79.899 Other long term (current) drug therapy; Z83.3 Family history of diabetes mellitus
CPT/HCPCS: 85025; 86850; 86900; 86901

== ENCOUNTER 2020-05-17 12:15 | Emergency (ER) | payer OTHER ==
[2020-05-17 12:40] VITALS: BP 139/89; PULSE 95; RESP 19; TEMP 97.9
[2020-05-17] MEDS ORDERED: DIPH,PERTUS(ACELL)TETVAC-LF 0.5 ML VIAL IM ONE (13:00)
--- NOTE | 2020-05-17 13:18 | ED ---
Psych HPI - General Chief Complaint: Psychiatric Symptoms Stated Complaint: suicide Time Seen by Provider: 05/17/20 12:30 Source: patient, police, EMS, RN notes reviewed Mode of arrival: EMS - History of Present Illness Initial Comments: This a 34-year-old female who presents with complaints of feeling depressed and suicidal. She did apparently take an unknown quantity of Tylenol PM possibly up to 10 is was after using methamphetamine. She also cut her left wrist with a razor he states. She's not sure when her last tetanus shot was. She has any other drug abuse or alcohol at this time. She does apparently have a history of depression she is not taking her medications which did include Abilify and Zoloft. She is somewhat lethargic to questioning. MD Complaint: suicidal ideation, feels depressed - Related Data Home Medications Medication Instructions Recorded Confirmed ARIPiprazole [Abilify] 10 mg PO DAILY 05/17/20 05/17/20 Acetaminophen/Diphenhydramine 1 tab PO HS PRN 05/17/20 05/17/20 [Tylenol PM 500-25mg] Sertraline [Zoloft] 50 mg PO DAILY 05/17/20 05/17/20 Allergies Allergy/AdvReac Type Severity Reaction Status Date / Time No Known Allergies Allergy Verified 05/17/20 13:40 Review of Systems ROS Statement: Those systems with pertinent positive or pertinent negative responses have been documented in the HPI. ROS Other: All systems not noted in ROS Statement are negative. Past Medical History Past Medical History: Asthma, GERD/Reflux, Thyroid Disorder Additional Past Medical History / Comment(s): seizure x1 at 18 yrs old (states due to overdose),? TIA 2017., seasonal asthma., Hypoglycemia. ,frequent diarrhea., hypothyroid., -LMP Sep 2018., States carpal tunnel syndrome mateus. hands. History of Any Multi-Drug Resistant Organisms: None Reported Past Surgical History: Section Past Anesthesia/Blood Transfusion Reactions: Postoperative Nausea & Vomiting (PONV) Past Psychological History: ADD/ADHD, Bipolar, Depression Past Alcohol Use History: Occasional Past Drug Use History: Marijuana - Past Family History Father Family Medical History: Diabetes Mellitus General Exam - General Exam Comments Initial Comments: This is a well-developed well-nourished awake though somewhat lethargic female she does appear to be oriented x3 Limitations: no limitations General appearance: alert, lethargic Head exam: Present: atraumatic, normocephalic, normal inspection Eye exam: Present: normal appearance, PERRL, EOMI. Absent: scleral icterus, conjunctival injection, periorbital swelling ENT exam: Present: normal exam, mucous membranes moist Neck exam: Present: normal inspection. Absent: tenderness, meningismus, lymphadenopathy Respiratory exam: Present: normal lung sounds bilaterally. Absent: respiratory distress, wheezes, rales, rhonchi, stridor Cardiovascular Exam: Present: regular rate, normal rhythm, normal heart sounds. Absent: systolic murmur, diastolic murmur, rubs, gallop, clicks GI/Abdominal exam: Present: soft, normal bowel sounds. Absent: distended, tenderness, guarding, rebound, rigid Extremities exam: Present: full ROM, normal capillary refill, other (Several transverse superficial abrasion seen to the distal volar rest no active bleeding no foreign body seen no suture repair indicated. No sensorimotor or vascular deficits). Absent: tenderness, pedal edema, joint swelling, calf tenderness Back exam: Present: normal inspection Neurological exam: Present: alert, oriented X3, CN II-XII intact Psychiatric exam: Present: normal affect, normal mood Skin exam: Present: warm, dry, intact, normal color. Absent: rash Course Vital Signs 05/17/20 12:37 Temperature 97.9 F Pulse Rate 95 Respiratory 19 Rate Blood Pressure 139/89 O2 Sat by Pulse 99 Oximetry Medical Decision Making - Medical Decision Making The patient was evaluated by the EPS service and currently is not found to be suicidal there is a care plan she will go home and be with her . She will follow up outpatient. - Lab Data Result diagrams: 05/17/20 13:12 05/17/20 13:12 Lab Results 05/17/20 05/17/20 05/17/20 Range/Units 13:12 13:12 13:12 WBC 13.2 H (3.8-10.6) k/uL RBC 4.81 (3.80-5.40) m/uL Hgb 13.4 (11.4-16.0) gm/dL Hct 40.0 (34.0-46.0) % MCV 83.2 (80.0-100.0) fL MCH 27.8 (25.0-35.0) pg MCHC 33.4 (31.0-37.0) g/dL RDW 13.4 (11.5-15.5) % Plt Count 271 (150-450) k/uL MPV 7.6 Neutrophils % 75 % Lymphocytes % 19 % Monocytes % 5 % Eosinophils % 1 % Basophils % 0 % Neutrophils # 9.9 H (1.3-7.7) k/uL Lymphocytes # 2.5 (1.0-4.8) k/uL Monocytes # 0.6 (0-1.0) k/uL Eosinophils # 0.1 (0-0.7) k/uL Basophils # 0.0 (0-0.2) k/uL Sodium (137-145) mmol/L Potassium (3.5-5.1) mmol/L Chloride (98-107) mmol/L Carbon Dioxide (22-30) mmol/L Anion Gap mmol/L BUN (7-17) mg/dL Creatinine (0.52-1.04) mg/dL Est GFR (CKD-EPI)AfAm (>60 ml/min/1.73 sqM) Est GFR (CKD-EPI)NonAf (>60 ml/min/1.73 sqM) Glucose (74-99) mg/dL Calcium (8.4-10.2) mg/dL Total Bilirubin (0.2-1.3) mg/dL AST (14-36) U/L ALT (4-34) U/L Alkaline Phosphatase (38-126) U/L Total Protein (6.3-8.2) g/dL Albumin (3.5-5.0) g/dL Urine HCG, Qual Not Detected (Not Detectd) Salicylates mg/dL Urine Opiates Screen Not Detected (NotDetected) Ur Oxycodone Screen Not Detected (NotDetected) Urine Methadone Screen Not Detected (NotDetected) Ur Propoxyphene Screen Not Detected (NotDetected) Acetaminophen ug/mL Ur Barbiturates Screen Not Detected (NotDetected) U Tricyclic Antidepress Not Detected (NotDetected) Ur Phencyclidine Scrn Not Detected (NotDetected) Ur Amphetamines Screen Detected H (NotDetected) U Methamphetamines Scrn Detected H (NotDetected) U Benzodiazepines Scrn Not Detected (NotDetected) Urine Cocaine Screen Not Detected (NotDetected) U Marijuana (THC) Screen Detected H (NotDetected) Serum Alcohol mg/dL 05/17/20 Range/Units 13:12 WBC (3.8-10.6) k/uL RBC (3.80-5.40) m/uL Hgb (11.4-16.0) gm/dL Hct (34.0-46.0) % MCV (80.0-100.0) fL MCH (25.0-35.0) pg MCHC (31.0-37.0) g/dL RDW (11.5-15.5) % Plt Count (150-450) k/uL MPV Neutrophils % % Lymphocytes % % Monocytes % % Eosinophils % % Basophils % % Neutrophils # (1.3-7.7) k/uL Lymphocytes # (1.0-4.8) k/uL Monocytes # (0-1.0) k/uL Eosinophils # (0-0.7) k/uL Basophils # (0-0.2) k/uL Sodium 138 (137-145) mmol/L Potassium 4.1 (3.5-5.1) mmol/L Chloride 104 (98-107) mmol/L Carbon Dioxide 25 (22-30) mmol/L Anion Gap 9 mmol/L BUN 7 (7-17) mg/dL Creatinine 0.53 (0.52-1.04) mg/dL Est GFR (CKD-EPI)AfAm >90 (>60 ml/min/1.73 sqM) Est GFR (CKD-EPI)NonAf >90 (>60 ml/min/1.73 sqM) Glucose 118 H (74-99) mg/dL Calcium 9.5 (8.4-10.2) mg/dL Total Bilirubin 0.7 (0.2-1.3) mg/dL AST 18 (14-36) U/L ALT 20 (4-34) U/L Alkaline Phosphatase 79 (38-126) U/L Total Protein 7.5 (6.3-8.2) g/dL Albumin 4.3 (3.5-5.0) g/dL Urine HCG, Qual (Not Detectd) Salicylates <1.0 mg/dL Urine Opiates Screen (NotDetected) Ur Oxycodone Screen (NotDetected) Urine Methadone Screen (NotDetected) Ur Propoxyphene Screen (NotDetected) Acetaminophen 26.2 ug/mL Ur Barbiturates Screen (NotDetected) U Tricyclic Antidepress (NotDetected) Ur Phencyclidine Scrn (NotDetected) Ur Amphetamines Screen (NotDetected) U Methamphetamines Scrn (NotDetected) U Benzodiazepines Scrn (NotDetected) Urine Cocaine Screen (NotDetected) U Marijuana (THC) Screen (NotDetected) Serum Alcohol <10 mg/dL Disposition Clinical Impression: Depression, Adjustment disorder, Medication overdose Disposition: HOME SELF-CARE Condition: Good Instructions (If sedation given, give patient instructions): Depression (ED), Mood Disorders (ED), Stress (ED) Is patient prescribed a controlled substance at d/c from ED?: No Referrals: Ana Maria Reid MD [Primary Care Provider] - 1-2 days
[2020-05-17 13:27] LABS: Basophils % (A) 0 %; Eosinophils # (A) 0.1 k/uL (0-0.7); Eosinophils % (A) 1 %; HGB 13.4 gm/dL (11.4-16.0); Lymphocytes # (A) 2.5 k/uL (1.0-4.8); Lymphocytes % (A) 19 %; MCH 27.8 pg (25.0-35.0); MCHC 33.4 g/dL (31.0-37.0); MCV 83.2 fL (80.0-100.0); Mean Platelet Volume 7.6; Monocytes # (A) 0.6 k/uL (0-1.0); Monocytes % (A) 5 %; Neutrophils # (A) 9.9 k/uL (1.3-7.7); Neutrophils % (A) 75 %; Platelet Count 271 k/uL (150-450); RBC 4.81 m/uL (3.80-5.40); RDW 13.4 % (11.5-15.5); WBC 13.2 k/uL (3.8-10.6)
[2020-05-17 13:38] LABS: Amphetamine Screen,Urine Detected (NotDetected); Barbiturate Screen,Urine Not Detected (NotDetected); Benzodiazepines Screen,Urine Not Detected (NotDetected); Cocaine Screen,Urine Not Detected (NotDetected); Methadone Screen, Urine Not Detected (NotDetected); Opiate Screen,Urine Not Detected (NotDetected); Oxycodone Screen, Urine Not Detected (NotDetected); Phencyclidine Screen,Urine Not Detected (NotDetected); Tricyclic Antidepressant,Urine Not Detected (NotDetected); Urn Cannabinoid Scrn Detected (NotDetected)
[2020-05-17 13:46] LABS: ALT 20 U/L (4-34); AST 18 U/L (14-36); Acetaminophen 26.2 ug/mL; African American GFR (CKD) >90 (>60 ml/min/1.73 sqM); Albumin 4.3 g/dL (3.5-5.0); Alcohol <10 mg/dL; Alkaline Phosphatase 79 U/L (38-126); Anion Gap 9 mmol/L; Blood Urea Nitrogen 7 mg/dL (7-17); Calcium 9.5 mg/dL (8.4-10.2); Carbon Dioxide 25 mmol/L (22-30); Chloride 104 mmol/L (98-107); Glucose 118 mg/dL (74-99); Non-African American GFR(CKD) >90 (>60 ml/min/1.73 sqM); Potassium 4.1 mmol/L (3.5-5.1); Salicylate <1.0 mg/dL; Sodium 138 mmol/L (137-145); Total Bilirubin 0.7 mg/dL (0.2-1.3); Total Protein 7.5 g/dL (6.3-8.2)
== END 2020-05-17 18:48 | disposition home or self-care (01) ==
LOC: EC 12:15
DX: T39.1X2A Poisoning by 4-Aminophenol derivatives, intentional self-harm, initial encounter (principal); F32.9 Major depressive disorder, single episode, unspecified; F43.20 Adjustment disorder, unspecified; S61.512A Laceration without foreign body of left wrist, initial encounter; J45.909 Unspecified asthma, uncomplicated; K21.9 Gastro-esophageal reflux disease without esophagitis; E03.9 Hypothyroidism, unspecified; F90.9 Attention-deficit hyperactivity disorder, unspecified type; F12.90 Cannabis use, unspecified, uncomplicated; Z79.899 Other long term (current) drug therapy; Z86.73 Personal history of transient ischemic attack (TIA), and cerebral infarction without residual deficits; X78.8XXA Intentional self-harm by other sharp object, initial encounter
CPT/HCPCS: 36415; 80053; 80143; 80179; 80306; 80320; 81025; 82075; 85025; 90471; 90715; 99285

== ENCOUNTER 2020-12-27 14:29 | Emergency (ER) | payer OTHER ==
[2020-12-27 14:38] VITALS: BP 127/86; PULSE 91; RESP 20; TEMP 97.3
[2020-12-27] MEDS ORDERED: SODIUM CHLORIDE 0.9% 1,000 ML IV ONE (15:23)
[2020-12-27] MEDS ORDERED: ACETAMINOPHEN TAB 500 MG TAB PO STA (15:23)
--- NOTE | 2020-12-27 15:27 | ED ---
General Adult HPI - General Chief complaint: Vaginal Bleeding Stated complaint: Abd pain Time Seen by Provider: 12/27/20 15:05 Source: patient, RN notes reviewed Mode of arrival: ambulatory Limitations: no limitations - History of Present Illness Initial comments: 35-year-old female with a past medical history of asthma, GERD presents to the emergency room for a chief complaint of vaginal bleeding. Patient reports that she started to have vaginal bleeding and cramping last night. States this is much worse than her normal period. States she passed a big clot. Patient states her last period was the end of September so about 2 months ago. Patient s tates she is usually regular. She does not know she is or not. Patient does have history of 3 normal pregnancies and is a . Patient states the pain is worse on the right side. She was at work today and started to get lightheaded so came to the emergency room. Patient has no other complaints at this time including shortness of breath, chest pain, nausea or vomiting, headache, or visual changes. - Related Data Home Medications Medication Instructions Recorded Confirmed ARIPiprazole [Abilify] 10 mg PO DAILY 05/17/20 05/17/20 Sertraline [Zoloft] 50 mg PO DAILY 05/17/20 05/17/20 Allergies Allergy/AdvReac Type Severity Reaction Status Date / Time No Known Allergies Allergy Verified 12/27/20 17:41 Review of Systems ROS Statement: Those systems with pertinent positive or pertinent negative responses have been documented in the HPI. ROS Other: All systems not noted in ROS Statement are negative. Past Medical History Past Medical History: Asthma, GERD/Reflux, Thyroid Disorder Additional Past Medical History / Comment(s): seizure x1 at 18 yrs old (states due to overdose),? TIA 2017., seasonal asthma., Hypoglycemia. ,frequent diarrhea., hypothyroid., -LMP Sep 2018., States carpal tunnel syndrome mateus. hands. History of Any Multi-Drug Resistant Organisms: None Reported Past Surgical History: Section Past Anesthesia/Blood Transfusion Reactions: Postoperative Nausea & Vomiting (PONV) Past Psychological History: ADD/ADHD, Bipolar, Depression Smoking Status: Vaper Past Alcohol Use History: Occasional Past Drug Use History: Marijuana - Past Family History Father Family Medical History: Diabetes Mellitus General Exam Limitations: no limitations General appearance: alert, in no apparent distress Head exam: Present: atraumatic Eye exam: Present: normal appearance, PERRL, EOMI. Absent: scleral icterus, conjunctival injection ENT exam: Present: normal exam, mucous membranes moist Neck exam: Present: normal inspection, full ROM. Absent: tenderness Respiratory exam: Present: normal lung sounds bilaterally. Absent: respiratory distress, wheezes Cardiovascular Exam: Present: regular rate, normal rhythm, normal heart sounds GI/Abdominal exam: Present: soft, tenderness (Mild suprapubic and right lower quadrant tenderness), normal bowel sounds. Absent: distended, guarding, rebound External exam: Present: normal external exam. Absent: erythema, swelling, lesions, lacerations, ecchymosis Speculum exam: Present: vaginal bleeding (Mild). Absent: normal speculum exam, erythema, vaginal discharge, cervical discharge, foreign body, tissue, laceration By manual exam: Present: adnexal tenderness (Mild right-sided adnexal tenderness), uterine tenderness. Absent: cervical motion tenderness, adnexal mass, uterine enlargement Course Vital Signs 12/27/20 14:35 Temperature 97.3 F L Pulse Rate 91 Respiratory 20 Rate Blood Pressure 127/86 O2 Sat by Pulse 99 Oximetry Medical Decision Making - Medical Decision Making vitals are stable. Patient is well-appearing. CBC CMP unremarkable. HCG is negative. Trichomonas negative. Pelvic exam revealed minimal to mild vaginal bleeding. Ultrasound showed a thickened endometrium. No other abnormalities. I discussed with the patient. She does have an established DATA SERVICES DEVELOPER. At this time patient is stable for outpatient follow-up but does need to see her DATA SERVICES DEVELOPER. May need biopsy of endometrium if bleeding persists. If bleeding worsens she will return to the emergency room. - Lab Data Result diagrams: 12/27/20 15:33 12/27/20 15:33 Lab Results 12/27/20 12/27/20 12/27/20 Range/Units 15:33 15:33 15:33 WBC 10.6 (3.8-10.6) k/uL RBC 4.41 (3.80-5.40) m/uL Hgb 12.4 (11.4-16.0) gm/dL Hct 37.6 (34.0-46.0) % MCV 85.3 (80.0-100.0) fL MCH 28.1 (25.0-35.0) pg MCHC 32.9 (31.0-37.0) g/dL RDW 13.6 (11.5-15.5) % Plt Count 305 (150-450) k/uL MPV 7.7 Neutrophils % 63 % Lymphocytes % 30 % Monocytes % 4 % Eosinophils % 2 % Basophils % 0 % Neutrophils # 6.7 (1.3-7.7) k/uL Lymphocytes # 3.2 (1.0-4.8) k/uL Monocytes # 0.5 (0-1.0) k/uL Eosinophils # 0.2 (0-0.7) k/uL Basophils # 0.0 (0-0.2) k/uL Sodium (137-145) mmol/L Potassium (3.5-5.1) mmol/L Chloride (98-107) mmol/L Carbon Dioxide (22-30) mmol/L Anion Gap mmol/L BUN (7-17) mg/dL Creatinine (0.52-1.04) mg/dL Est GFR (CKD-EPI)AfAm (>60 ml/min/1.73 sqM) Est GFR (CKD-EPI)NonAf (>60 ml/min/1.73 sqM) Glucose (74-99) mg/dL Calcium (8.4-10.2) mg/dL Total Bilirubin (0.2-1.3) mg/dL AST (14-36) U/L ALT (4-34) U/L Alkaline Phosphatase (38-126) U/L Total Protein (6.3-8.2) g/dL Albumin (3.5-5.0) g/dL HCG, Quant mIU/mL Urine Color Light Red Urine Appearance Clear (Clear) Urine pH 5.5 (5.0-8.0) Ur Specific [place] 1.014 (1.001-1.035) Urine Protein Trace H (Negative) Urine Glucose (UA) Negative (Negative) Urine Ketones Negative (Negative) Urine Blood Large H (Negative) Urine Nitrite Negative (Negative) Urine Bilirubin Negative (Negative) Urine Urobilinogen <2.0 (<2.0) mg/dL Ur Leukocyte Esterase Small H (Negative) Urine RBC >182 H (0-5) /hpf Urine WBC 18 H (0-5) /hpf Urine HCG, Qual Not Detected (Not Detectd) Trichomonas Ag (Rapid) (Negative) Blood Type Blood Type Recheck Bld Type Recheck Status Antibody Screen Spec Expiration Date 12/27/20 12/27/20 12/27/20 Range/Units 15:33 15:33 15:33 WBC (3.8-10.6) k/uL RBC (3.80-5.40) m/uL Hgb (11.4-16.0) gm/dL Hct (34.0-46.0) % MCV (80.0-100.0) fL MCH (25.0-35.0) pg MCHC (31.0-37.0) g/dL RDW (11.5-15.5) % Plt Count (150-450) k/uL MPV Neutrophils % % Lymphocytes % % Monocytes % % Eosinophils % % Basophils % % Neutrophils # (1.3-7.7) k/uL Lymphocytes # (1.0-4.8) k/uL Monocytes # (0-1.0) k/uL Eosinophils # (0-0.7) k/uL Basophils # (0-0.2) k/uL Sodium 138 (137-145) mmol/L Potassium 4.0 (3.5-5.1) mmol/L Chloride 106 (98-107) mmol/L Carbon Dioxide 25 (22-30) mmol/L Anion Gap 7 mmol/L BUN 11 (7-17) mg/dL Creatinine 0.50 L (0.52-1.04) mg/dL Est GFR (CKD-EPI)AfAm >90 (>60 ml/min/1.73 sqM) Est GFR (CKD-EPI)NonAf >90 (>60 ml/min/1.73 sqM) Glucose 92 (74-99) mg/dL Calcium 9.2 (8.4-10.2) mg/dL Total Bilirubin 0.3 (0.2-1.3) mg/dL AST 19 (14-36) U/L ALT 15 (4-34) U/L Alkaline Phosphatase 122 (38-126) U/L Total Protein 7.2 (6.3-8.2) g/dL Albumin 3.9 (3.5-5.0) g/dL HCG, Quant <2.4 mIU/mL Urine Color Urine Appearance (Clear) Urine pH (5.0-8.0) Ur Specific [place] (1.001-1.035) Urine Protein (Negative) Urine Glucose (UA) (Negative) Urine Ketones (Negative) Urine Blood (Negative) Urine Nitrite (Negative) Urine Bilirubin (Negative) Urine Urobilinogen (<2.0) mg/dL Ur Leukocyte Esterase (Negative) Urine RBC (0-5) /hpf Urine WBC (0-5) /hpf Urine HCG, Qual (Not Detectd) Trichomonas Ag (Rapid) Negative (Negative) Blood Type O Positive Blood Type Recheck O Pos Bld Type Recheck Status No Antibody Screen NEGATIVE Spec Expiration Date 12/30/20202332 Disposition Clinical Impression: Dysfunctional uterine bleeding Disposition: HOME SELF-CARE Condition: Good Instructions (If sedation given, give patient instructions): Dysmenorrhea (ED) Additional Instructions: Please take Motrin as needed for pain. Please follow-up with your DATA SERVICES DEVELOPER by calling tomorrow for the earliest appointment. Return to the emergency room for any worsening symptoms such as worsening bleeding or pain. Is patient prescribed a controlled substance at d/c from ED?: No Referrals: Ana Maria Reid MD [Primary Care Provider] - 1-2 days Time of Disposition: 17:42
[2020-12-27 15:46] LABS: Basophils % (A) 0 %; Eosinophils # (A) 0.2 k/uL (0-0.7); Eosinophils % (A) 2 %; HCT 37.6 % (34.0-46.0); HGB 12.4 gm/dL (11.4-16.0); Lymphocytes # (A) 3.2 k/uL (1.0-4.8); Lymphocytes % (A) 30 %; MCH 28.1 pg (25.0-35.0); MCHC 32.9 g/dL (31.0-37.0); MCV 85.3 fL (80.0-100.0); Mean Platelet Volume 7.7; Monocytes # (A) 0.5 k/uL (0-1.0); Monocytes % (A) 4 %; Neutrophils # (A) 6.7 k/uL (1.3-7.7); Neutrophils % (A) 63 %; Platelet Count 305 k/uL (150-450); RBC 4.41 m/uL (3.80-5.40); RDW 13.6 % (11.5-15.5); WBC 10.6 k/uL (3.8-10.6)
[2020-12-27 15:58] LABS: ALT 15 U/L (4-34); AST 19 U/L (14-36); African American GFR (CKD) >90 (>60 ml/min/1.73 sqM); Albumin 3.9 g/dL (3.5-5.0); Alkaline Phosphatase 122 U/L (38-126); Anion Gap 7 mmol/L; Appearance,Urine Clear (Clear); Bilirubin,Urine Negative (Negative); Blood Urea Nitrogen 11 mg/dL (7-17); Blood,Urine Large (Negative); Calcium 9.2 mg/dL (8.4-10.2); Carbon Dioxide 25 mmol/L (22-30); Chloride 106 mmol/L (98-107); Color,Urine Light Red; Glucose 92 mg/dL (74-99); Glucose,Urine (UA) Negative (Negative); Ketones,Urine Negative (Negative); Leukocyte Esterase,Urine Small (Negative); Nitrite,Urine Negative (Negative); Non-African American GFR(CKD) >90 (>60 ml/min/1.73 sqM); PH, Urine 5.5 (5.0-8.0); Protein,Urine Trace (Negative); RBC,Urine >182 /hpf (0-5); Sodium 138 mmol/L (137-145); Specific Gravity,Urine 1.014 (1.001-1.035); Total Bilirubin 0.3 mg/dL (0.2-1.3); Total Protein 7.2 g/dL (6.3-8.2); Urobilinogen,Urine <2.0 mg/dL (<2.0); WBC,Urine 18 /hpf (0-5)
[2020-12-27 16:12] LABS: HCG,Quantitative Serum <2.4 mIU/mL
[2020-12-27] MEDS ORDERED: KETOROLAC 15 MG/ML 1 ML VIAL IVP STA (16:24)
--- NOTE | 2020-12-27 17:26 | US ---
EXAMINATION TYPE: US transvaginal DATE OF EXAM: 12/27/2020 COMPARISON: NONE CLINICAL HISTORY: pain, bleeding. TECHNIQUE: . Transabdominal sonographic images of the pelvis were acquired. Transvaginal sonographi c images were medically necessary to better assess the following anatomy: Date of LMP: EXAM MEASUREMENTS: Uterus: 10.2 x 5.2 x 5.9 cm Endometrial Stripe: 2.1 cm Right Ovary: 2.5 x 2.1 x 1.8 cm Left Ovary: 2.3 x 2.0 x 1.9 cm 1. Uterus: Anteverted wnl 2. Endometrium: thickened 3. Right Ovary: wnl 4. Left Ovary: wnl 5. Bilateral Adnexa: wnl 6. Posterior cul-de-sac: wnl IMPRESSION: Thickening of the endometrium. Otherwise unremarkable study.
[2020-12-28 15:29] LABS: C. trachomatis,PCR Negative (Neg,Equiv); Chlamydia trachomatis Source Vagina; N. gonorrhoeae,PCR Negative (Neg,Equiv); Neisseria Source Vagina
== END 2020-12-27 17:51 | disposition home or self-care (01) ==
LOC: EC 14:29
DX: N93.9 Abnormal uterine and vaginal bleeding, unspecified (principal); K21.9 Gastro-esophageal reflux disease without esophagitis; J45.909 Unspecified asthma, uncomplicated; E07.9 Disorder of thyroid, unspecified; F31.9 Bipolar disorder, unspecified; F17.290 Nicotine dependence, other tobacco product, uncomplicated; F12.90 Cannabis use, unspecified, uncomplicated; Z86.73 Personal history of transient ischemic attack (TIA), and cerebral infarction without residual deficits
CPT/HCPCS: 99284; 96374; 96361; 36415; 86900; 86901; 80053; 85025; 86850; 81001; 81025; 84702; 87808; 87491; 87591; 87086; 76830; J1885

== ENCOUNTER 2021-05-21 09:32 | Emergency (ER) | payer OTHER ==
[2021-05-21 09:39] VITALS: TEMP 98.3
[2021-05-21] MEDS ORDERED: SODIUM CHLORIDE 0.9% 1,000 ML IV STA (10:43)
[2021-05-21] MEDS ORDERED: ONDANSETRON 4 MG/2 ML VIAL IVP STA (10:43)
[2021-05-21 11:02] LABS: Glucose,Whole Blood 90 mg/dL (75-99)
--- NOTE | 2021-05-21 11:03 | ED ---
General Adult HPI - General Chief complaint: Nausea/Vomiting/Diarrhea Stated complaint: vomiting, diarrhea, syncope Time Seen by Provider: 05/21/21 10:32 Source: patient Mode of arrival: ambulatory Limitations: no limitations - History of Present Illness Initial comments: This 35-year-old female presents to the emergency department with diarrhea that began yesterday afternoon and vomiting that began this morning around 8:00 AM. Patient states she has a history of hypoglycemia since ninth-grade and states these are usually her symptoms when she has low blood sugar. Patient states she was in the bathroom vomiting and stood up to wash her hands when she felt lightheaded and passed out. Patient states she didn't hit her head on the countertop on her fall down. Patient denies any neurologic deficits. She denies any loss of consciousness, headache, dizziness, change in vision at this time. Patient states right after she fell and hit her head and her mom did run into the room and patient states she only lost consciousness for about 5 second s. Patient states she does not want a CT of her head at this time due to her having no symptoms and states she'll return if any symptoms arise. Patient denies any hemoptysis, fever or abdominal pain. Patient states she was told she was prediabetic in her past but has not had a workup for it. Patient states she has been more thirsty recently. Patient denies any chest pain, shortness of breath, abdominal pain, change in bladder, headache, lightheadedness, dizziness, double/blurred vision, weakness, trouble swallowing or speaking. - Related Data Home Medications Medication Instructions Recorded Confirmed Albuterol Sulfate [Proair Hfa] 2 puff INHALATION RT-Q4H PRN 05/21/21 05/21/21 Amoxic-Pot Clav 875-125Mg 1 tab PO Q12HR 05/21/21 05/21/21 [Augmentin 875-125] predniSONE 50 mg PO DAILY 05/21/21 05/21/21 Previous Rx's Medication Instructions Recorded Ondansetron Odt [Zofran ODT] 4 mg PO Q8HR PRN #10 tab 05/21/21 Allergies Allergy/AdvReac Type Severity Reaction Status Date / Time No Known Allergies Allergy Verified 05/21/21 11:27 Review of Systems ROS Statement: Those systems with pertinent positive or pertinent negative responses have been documented in the HPI. ROS Other: All systems not noted in ROS Statement are negative. Past Medical History Past Medical History: Asthma, GERD/Reflux, Thyroid Disorder Additional Past Medical History / Comment(s): seizure x1 at 18 yrs old (states due to overdose),? TIA 2017., seasonal asthma., Hypoglycemia. ,frequent diarrhea., hypothyroid., -LMP Sep 2018., States carpal tunnel syndrome mateus. hands. History of Any Multi-Drug Resistant Organisms: None Reported Past Surgical History: Section Past Anesthesia/Blood Transfusion Reactions: Postoperative Nausea & Vomiting (PONV) Past Psychological History: ADD/ADHD, Bipolar, Depression Smoking Status: Vaper Past Alcohol Use History: Occasional Past Drug Use History: Marijuana - Past Family History Father Family Medical History: Diabetes Mellitus General Exam Limitations: no limitations General appearance: alert, in no apparent distress Head exam: Present: atraumatic, normocephalic, normal inspection Eye exam: Present: normal appearance, PERRL, EOMI. Absent: scleral icterus, conjunctival injection, periorbital swelling ENT exam: Present: normal exam, mucous membranes moist Neck exam: Present: normal inspection, full ROM. Absent: tenderness, meningismus, lymphadenopathy Respiratory exam: Present: normal lung sounds bilaterally. Absent: respiratory distress, wheezes, rales, rhonchi, stridor Cardiovascular Exam: Present: regular rate, normal rhythm, normal heart sounds. Absent: systolic murmur, diastolic murmur, rubs, gallop, clicks GI/Abdominal exam: Present: soft, tenderness (Diffuse tenderness in all quadrants, patient states that hurts a little bit but is more uncomfortable when I push on her abdomen), normal bowel sounds. Absent: distended, guarding, rebound, rigid Extremities exam: Present: full ROM, normal capillary refill. Absent: tenderness, pedal edema, joint swelling, calf tenderness Back exam: Present: normal inspection, full ROM. Absent: CVA tenderness (R), CVA tenderness (L), paraspinal tenderness, vertebral tenderness Neurological exam: Present: alert, oriented X3, CN II-XII intact, normal gait Psychiatric exam: Present: normal affect, normal mood Skin exam: Present: warm, dry, intact, normal color. Absent: rash Course Vital Signs 05/21/21 05/21/21 09:37 11:24 Temperature 98.3 F Pulse Rate 94 77 Respiratory 20 16 Rate Blood Pressure 113/71 107/64 O2 Sat by Pulse 98 98 Oximetry - Reevaluation(s) Reevaluation #1: 05/21/21 11:48 On reevaluation patient, she states she does feel much better after receiving fluids and Zofran. Patient denies any nausea or abdominal pain at this time. Patient states she did go to bathroom and did have an episode of diarrhea, she denies any blood present and states this is her second episode of diarrhea today. 05/21/21 12:05 Medical Decision Making - Medical Decision Making This 35-year-old female presents emergency Department with vomiting and diarrhea that began yesterday. After getting fluids and Zofran in the emergency department, patient states she feels much better and is ready to be discharged. I did discharge patient denied having any symptoms at this time. Patient did fall earlier today and hit her head due to getting lightheaded after going from sitting to standing but did refuse computed tomography scan and stated she would return if she experiences any neurologic deficits such as headache, change in vision, altered mental status, nausea or vomiting or any other symptoms. Dose of Lomotil given patient prior to discharge due to her having an episode of diarrhea here in the emergency department. Patient instructed to follow up with her primary care provider next 1-2 days. Zofran prescription given to patient. Strict return precautions were discussed. Patient sent home in stable condition. Case discussed with my attending, Dr. Mack. - Lab Data Result diagrams: 05/21/21 11:01 05/21/21 11:01 Lab Results 05/21/21 05/21/21 05/21/21 Range/Units 10:56 11:01 11:01 WBC 13.5 H (3.8-10.6) k/uL RBC 5.14 (3.80-5.40) m/uL Hgb 14.1 (11.4-16.0) gm/dL Hct 43.0 (34.0-46.0) % MCV 83.5 (80.0-100.0) fL MCH 27.4 (25.0-35.0) pg MCHC 32.8 (31.0-37.0) g/dL RDW 13.9 (11.5-15.5) % Plt Count 337 (150-450) k/uL MPV 7.6 Neutrophils % 69 % Lymphocytes % 23 % Monocytes % 5 % Eosinophils % 2 % Basophils % 0 % Neutrophils # 9.3 H (1.3-7.7) k/uL Lymphocytes # 3.0 (1.0-4.8) k/uL Monocytes # 0.7 (0-1.0) k/uL Eosinophils # 0.2 (0-0.7) k/uL Basophils # 0.0 (0-0.2) k/uL Sodium 137 (137-145) mmol/L Potassium 4.3 (3.5-5.1) mmol/L Chloride 104 (98-107) mmol/L Carbon Dioxide 25 (22-30) mmol/L Anion Gap 8 mmol/L BUN 19 H (7-17) mg/dL Creatinine 0.66 (0.52-1.04) mg/dL Est GFR (CKD-EPI)AfAm >90 (>60 ml/min/1.73 sqM) Est GFR (CKD-EPI)NonAf >90 (>60 ml/min/1.73 sqM) Glucose 89 (74-99) mg/dL POC Glucose (mg/dL) 90 (75-99) mg/dL POC Glu [employer] ID Josue Santos Calcium 9.5 (8.4-10.2) mg/dL Total Bilirubin 0.9 (0.2-1.3) mg/dL AST 17 (14-36) U/L ALT 15 (4-34) U/L Alkaline Phosphatase 81 (38-126) U/L Total Protein 8.0 (6.3-8.2) g/dL Albumin 4.1 (3.5-5.0) g/dL Lipase 48 (23-300) U/L Urine Color Urine Appearance (Clear) Urine pH (5.0-8.0) Ur Specific [place] (1.001-1.035) Urine Protein (Negative) Urine Glucose (UA) (Negative) Urine Ketones (Negative) Urine Blood (Negative) Urine Nitrite (Negative) Urine Bilirubin (Negative) Urine Urobilinogen (<2.0) mg/dL Ur Leukocyte Esterase (Negative) Urine HCG, Qual (Not Detectd) Acetone, Qual Negative (Negative) 05/21/21 05/21/21 Range/Units 12:00 12:00 WBC (3.8-10.6) k/uL RBC (3.80-5.40) m/uL Hgb (11.4-16.0) gm/dL Hct (34.0-46.0) % MCV (80.0-100.0) fL MCH (25.0-35.0) pg MCHC (31.0-37.0) g/dL RDW (11.5-15.5) % Plt Count (150-450) k/uL MPV Neutrophils % % Lymphocytes % % Monocytes % % Eosinophils % % Basophils % % Neutrophils # (1.3-7.7) k/uL Lymphocytes # (1.0-4.8) k/uL Monocytes # (0-1.0) k/uL Eosinophils # (0-0.7) k/uL Basophils # (0-0.2) k/uL Sodium (137-145) mmol/L Potassium (3.5-5.1) mmol/L Chloride (98-107) mmol/L Carbon Dioxide (22-30) mmol/L Anion Gap mmol/L BUN (7-17) mg/dL Creatinine (0.52-1.04) mg/dL Est GFR (CKD-EPI)AfAm (>60 ml/min/1.73 sqM) Est GFR (CKD-EPI)NonAf (>60 ml/min/1.73 sqM) Glucose (74-99) mg/dL POC Glucose (mg/dL) (75-99) mg/dL POC Glu [employer] ID Calcium (8.4-10.2) mg/dL Total Bilirubin (0.2-1.3) mg/dL AST (14-36) U/L ALT (4-34) U/L Alkaline Phosphatase (38-126) U/L Total Protein (6.3-8.2) g/dL Albumin (3.5-5.0) g/dL Lipase (23-300) U/L Urine Color Yellow Urine Appearance Clear (Clear) Urine pH 5.5 (5.0-8.0) Ur Specific [place] 1.027 (1.001-1.035) Urine Protein Negative (Negative) Urine Glucose (UA) Negative (Negative) Urine Ketones Negative (Negative) Urine Blood Negative (Negative) Urine Nitrite Negative (Negative) Urine Bilirubin Negative (Negative) Urine Urobilinogen <2.0 (<2.0) mg/dL Ur Leukocyte Esterase Negative (Negative) Urine HCG, Qual Not Detected (Not Detectd) Acetone, Qual (Negative) Disposition Clinical Impression: Diarrhea, Vomiting Disposition: HOME SELF-CARE Condition: Stable Instructions (If sedation given, give patient instructions): Acute Nausea and Vomiting (ED), Acute Diarrhea (ED) Additional Instructions: Please take Zofran as directed. Follow up with your primary care provider next 24-48 hours. Return to the emergency department with any new, worsening, or concerning symptoms. Prescriptions: Ondansetron Odt [Zofran ODT] 4 mg PO Q8HR PRN #10 tab PRN Reason: Nausea Is patient prescribed a controlled substance at d/c from ED?: No Referrals: Ana Maria Reid MD [Primary Care Provider] - 1-2 days Time of Disposition: 13:08
[2021-05-21 11:07] LABS: Basophils % (A) 0 %; Eosinophils # (A) 0.2 k/uL (0-0.7); Eosinophils % (A) 2 %; HGB 14.1 gm/dL (11.4-16.0); Lymphocytes % (A) 23 %; MCH 27.4 pg (25.0-35.0); MCHC 32.8 g/dL (31.0-37.0); MCV 83.5 fL (80.0-100.0); Mean Platelet Volume 7.6; Monocytes # (A) 0.7 k/uL (0-1.0); Monocytes % (A) 5 %; Neutrophils # (A) 9.3 k/uL (1.3-7.7); Neutrophils % (A) 69 %; Platelet Count 337 k/uL (150-450); RBC 5.14 m/uL (3.80-5.40); RDW 13.9 % (11.5-15.5); WBC 13.5 k/uL (3.8-10.6)
[2021-05-21 11:21] LABS: ALT 15 U/L (4-34); AST 17 U/L (14-36); African American GFR (CKD) >90 (>60 ml/min/1.73 sqM); Albumin 4.1 g/dL (3.5-5.0); Alkaline Phosphatase 81 U/L (38-126); Anion Gap 8 mmol/L; Blood Urea Nitrogen 19 mg/dL (7-17); Calcium 9.5 mg/dL (8.4-10.2); Carbon Dioxide 25 mmol/L (22-30); Chloride 104 mmol/L (98-107); Glucose 89 mg/dL (74-99); Lipase 48 U/L (23-300); Non-African American GFR(CKD) >90 (>60 ml/min/1.73 sqM); Potassium 4.3 mmol/L (3.5-5.1); Sodium 137 mmol/L (137-145); Total Bilirubin 0.9 mg/dL (0.2-1.3)
[2021-05-21 11:27] VITALS: BP 107/64; PULSE 77; RESP 16
[2021-05-21 12:31] LABS: Appearance,Urine Clear (Clear); Bilirubin,Urine Negative (Negative); Blood,Urine Negative (Negative); Color,Urine Yellow; Glucose,Urine (UA) Negative (Negative); Ketones,Urine Negative (Negative); Leukocyte Esterase,Urine Negative (Negative); Nitrite,Urine Negative (Negative); PH, Urine 5.5 (5.0-8.0); Protein,Urine Negative (Negative); Specific Gravity,Urine 1.027 (1.001-1.035); Urobilinogen,Urine <2.0 mg/dL (<2.0)
[2021-05-21] MEDS ORDERED: DIPHENOX-ATROP 2.5-0.025 MG 1 EACH TAB PO STA (13:15)
== END 2021-05-21 13:49 | disposition home or self-care (01) ==
LOC: EC 09:32
DX: R11.10 Vomiting, unspecified (principal); R19.7 Diarrhea, unspecified; J45.909 Unspecified asthma, uncomplicated; F17.209 Nicotine dependence, unspecified, with unspecified nicotine-induced disorders
CPT/HCPCS: 36415; 80053; 82009; 83690; 85025; 81003; 81025; 99284; 96374; 96361; J2405

== ENCOUNTER 2022-08-11 10:01 | Emergency (ER) | payer OTHER ==
[2022-08-11] MEDS ORDERED: METOCLOPRAMIDE 5 MG/ML 2 ML VIAL IVP STA (10:45)
[2022-08-11] MEDS ORDERED: KETOROLAC 15 MG/ML 1 ML VIAL IVP STA (10:45)
[2022-08-11] MEDS ORDERED: SODIUM CHLORIDE 0.9% 1,000 ML IV STA (10:45)
--- NOTE | 2022-08-11 10:53 | ED ---
Extremity Problem HPI - General Chief complaint: Extremity Problem,Nontraumatic Stated complaint: R shoulder pain Source: patient Mode of arrival: ambulatory Limitations: no limitations - History of Present Illness Initial comments: 36-year-old female presenting to the ED today initially with the chief complaint of right shoulder pain. Patient states that she has had right shoulder pain for the last 3 weeks. Denies any known trauma. Pain shoots down from her neck down to her right shoulder/arm. States that she saw a provider approximately 2 weeks ago who provided her a steroid shot and muscle relaxers and notes that this provided relief initially however states now it has worn off. Patient states that her pain has gotten so bad that she now has a "migraine". Patient notes no history of migraines or headaches. Patient states that she has a 10/10 pulsating headache associated phonophobia, photophobia, and nausea. He also notes weakness in her right arm starting approximately one week ago. Patient admits to seeing a chiropractor, last visit was one week ago. Denies recent manipulation or recent trauma. No other complaints. - Related Data Home Medications Medication Instructions Recorded Confirmed Albuterol Sulfate [Proair Hfa] 2 puff INHALATION RT-Q4H PRN 05/21/21 05/21/21 Amoxic-Pot Clav 875-125Mg 1 tab PO Q12HR 05/21/21 05/21/21 [Augmentin 875-125] predniSONE 50 mg PO DAILY 05/21/21 05/21/21 Previous Rx's Medication Instructions Recorded Ondansetron Odt [Zofran ODT] 4 mg PO Q8HR PRN #10 tab 05/21/21 Allergies Allergy/AdvReac Type Severity Reaction Status Date / Time No Known Allergies Allergy Verified 08/11/22 10:17 Review of Systems ROS Statement: Those systems with pertinent positive or pertinent negative responses have been documented in the HPI. ROS Other: All systems not noted in ROS Statement are negative. Past Medical History Past Medical History: Asthma, GERD/Reflux, Thyroid Disorder Additional Past Medical History / Comment(s): seizure x1 at 18 yrs old (states due to overdose),? TIA 2017., seasonal asthma., Hypoglycemia. ,frequent diarrhea., hypothyroid., -LMP Sep 2018., States carpal tunnel syndrome mateus. hands. History of Any Multi-Drug Resistant Organisms: None Reported Past Surgical History: Section Past Anesthesia/Blood Transfusion Reactions: Postoperative Nausea & Vomiting (PONV) Past Psychological History: ADD/ADHD, Bipolar, Depression Smoking Status: Vaper Past Alcohol Use History: Occasional Past Drug Use History: Marijuana - Past Family History Father Family Medical History: Diabetes Mellitus General Exam Limitations: no limitations General appearance: alert, in distress (Tearful) Head exam: Present: atraumatic, normocephalic Eye exam: Present: normal appearance, PERRL, EOMI ENT exam: Present: mucous membranes moist, other (Tongue midline uvula midline) Neck exam: Present: tenderness (Tenderness to palpation at C6/C7.), other (Pain reproduced upon axial loading.) Respiratory exam: Present: normal lung sounds bilaterally Cardiovascular Exam: Present: regular rate, normal rhythm Back exam: Present: other (No midline thoracic or lumbar spinal tenderness to palpation) Neurological exam: Present: alert, oriented X3 (Slow to respond but Ano x 3 ), CN II-XII intact (Unable to complete serial sevens however rapid alternating hand movements, FTN, [id number] intact.) Skin exam: Present: warm, dry Course Vital Signs 08/11/22 08/11/22 08/11/22 10:15 10:57 11:39 Temperature 98.2 F Pulse Rate 72 73 69 Respiratory 20 16 16 Rate Blood Pressure 116/79 126/86 128/86 O2 Sat by Pulse 99 99 99 Oximetry 08/11/22 12:24 Temperature Pulse Rate 70 Respiratory 16 Rate Blood Pressure 118/80 O2 Sat by Pulse 99 Oximetry - Reevaluation(s) Reevaluation #1: 08/11/22 12:19 Upon reevaluation patient states nausea has improved however still notes 7 on the 10 pain. Will be provided additional pain medications. 08/11/22 12:40 Upon reevaluation patient states nausea and headache completely resolved. Only notes pain of the right shoulder. Medical Decision Making - Medical Decision Making Was pt. sent in by a medical professional or institution (, [facility], DRY HOUSE WORKER, urgent care, hospital, or penitentiary...) When possible be specific @ -No Did you speak to anyone other than the patient for history (EMS, parent, family, police, friend...)? What history was obtained from this source @ -No Did you review nursing and triage notes (agree or disagree)? Why? @ -I reviewed and agree with nursing and triage notes Were old charts reviewed (outside hosp., previous admission, EMS record, old EKG, old radiological studies, urgent care reports/EKG's, penitentiary records)? Report findings @ -No old charts were reviewed Differential Diagnosis (chest pain, altered mental status, abdominal pain women, abdominal pain men, vaginal bleeding, weakness, fever, dyspnea, syncope, headache, dizziness, GI bleed, back pain, seizure, CVA, palpatations, mental health, musculoskeletal)? @ -Differential Headache: Migraine, tension, cluster, carbon monoxide, central venous thrombosis, pension karma temporal arteritis, acute closure glaucoma, intercranial hemorrhage, mastoiditis, sinusitis, head injury, this is not meant to be an all-inclusive list. EKG interpreted by me (3pts min.). @ -As above X-rays interpreted by me (1pt min.). @ -None done CT interpreted by me (1pt min.). @ -CT and CTA showed no acute process U/S interpreted by me (1pt. min.). @ -None done What testing was considered but not performed or refused? (CT, X-rays, U/S, labs)? Why? @ -None What meds were considered but not given or refused? Why? @ -None Did you discuss the management of the patient with other professionals (professionals i.e. , PA, DRY HOUSE WORKER, lab, RT, psych nurse, social media assistant, soda dispenser, teacher, fire information officer, caseworker intake)? Give summary @ -No Was smoking cessation discussed for >3mins.? @ -No Was critical care preformed (if so, how long)? @ -No Were there social determinants of health that impacted care today? How? (Homelessness, low income, unemployed, alcoholism, drug addiction, transportation, low edu. Level, literacy, decrease access to med. care, skilled nursing, rehab)? @ -No Was there de-escalation of care discussed even if they declined (Discuss DNR or withdrawal of care, Hospice)? DNR status @ -No What co-morbidities impacted this encounter? (DM, HTN, Smoking, COPD, CAD, Cancer, CVA, ARF, Chemo, Hep., AIDS, mental health diagnosis, sleep apnea, morbid obesity)? @ -None Was patient admitted / discharged? Hospital course, mention meds given and route, prescriptions, significant lab abnormalities, going to OR and other pertinent info. @ -Discharge. Imaging studies as above. Patient had received Toradol, Reglan, and morphine with complete resolution of headache and nausea. At this point, only notes pain in the right shoulder. Patient will be sent home with ibuprofen starter pack and advised to follow up with PCP. Undiagnosed new problem with uncertain prognosis? @ -No Drug Therapy requiring intensive monitoring for toxicity (Heparin, Nitro, Insulin, Cardizem)? @ -No Were any procedures done? @ -No Diagnosis/symptom? @ -Cervical radiculopathy, right shoulder pain, headache Acute, or Chronic, or Acute on Chronic? @ -Acute headache, chronic shoulder pain. Uncomplicated (without systemic symptoms) or Complicated (systemic symptoms)? @ -Uncomplicated Side effects of treatment? @ -No Exacerbation, Progression, or Severe Exacerbation? @ -No Poses a threat to life or bodily function? How? (Chest pain, [place], [place], pneumonia, PE, COPD, DKA, ARF, appy, cholecystitis, CVA, Diverticulitis, Homicidal, Suicidal, threat to staff... and all critical care pts) @ -No Disposition Clinical Impression: Radiculopathy affecting upper extremity, Shoulder pain Disposition: HOME SELF-CARE Additional Instructions: Please return to the Emergency Department if symptoms worsen or any other concerns. Is patient prescribed a controlled substance at d/c from ED?: No Referrals: Maxiimlian Greene MD [Primary Care Provider] - 1-2 days Time of Disposition: 12:49
[2022-08-11 10:59] VITALS: RESP 16
--- NOTE | 2022-08-11 11:30 | CT ---
EXAMINATION TYPE: CT brain wo con DATE OF EXAM: 08/11/2022 COMPARISON: 08/15/2017 INDICATION: headache x 1 day with shoulder pain x 3 weeks DLP: 1129.5 mGycm, Automated exposure control for dose reduction was used. CONTRAST: None CT of the brain is performed utilizing 3 mm thick sections through the posterior fossa and 3 mm thick sections through the remaining calvarium. Study is performed within 24 hours of arrival to the hosp ital. No abnormal hyperdensity is present to suggest an acute intracranial hemorrhage. No mass lesion is evident. No acute infarcts are evident. Ventricles and sulci are appropriate for the patient age. Paranasal sinuses and mastoid air cells within the [id number] are clear. IMPRESSIONS: 1. No acute intracranial process. Follow-up MRI can be performed as clinically indicated.
--- NOTE | 2022-08-11 12:04 | CT ---
EXAMINATION TYPE: CT angio head neck DATE OF EXAM: 08/11/2022 HISTORY: Headache x today, Right shoulder pain x 3 weeks COMPARISON: 11/16/2016 CT DLP: 1802.7 mGycm. Automated Exposure Control for Dose Reduction was Utilized. TECHNIQUE: CTA scan of the neck is performed without and with IV Contrast, patient injected with 65 ml mL of Isovue 370, axial images are obtained, coronal and sagittal reformatted images are reviewed. Three-D reconstructed images are created on an independent workstation and reviewed. Source images are reviewed. FINDINGS: Carotid/Vascular Structures: There is a three-vessel arch. Left vertebral artery may be dominant. Car otid Bifurcation appears normal. Internal carotid artery and vertebral arteries are patent to the sku ll base. Cervical of Rhoades: Vertebral basilar system appears normal. Posterior cerebral vasculature is unrema rkable. Internal carotid arteries bifurcate normally into A1 and M1 segments. A2 segments are normal. The anterior communicating artery is patent. Left Posterior communicating artery is patent. Right po sterior communicating artery is patent. Other: Findings appear stable from comparison. IMPRESSION: 1. No flow-limiting stenosis bilateral carotid bifurcations. 2. Normal [place] of [place] NASCET criteria was used in interpretation of this exam?
[2022-08-11] MEDS ORDERED: MORPHINE SULFATE 4 MG/ML SYRINGE IVP STA (12:20)
[2022-08-11 12:26] VITALS: BP 118/80; PULSE 70
[2022-08-11 12:56] VITALS: TEMP 97.9
[2022-08-11] MEDS ORDERED: IBUPROFEN 600 MG STARTER PACK 4 TAB BTL PO STA (12:57)
== END 2022-08-11 13:24 | disposition home or self-care (01) ==
LOC: EC 10:01
DX: M54.10 Radiculopathy, site unspecified (principal); J45.909 Unspecified asthma, uncomplicated; F90.9 Attention-deficit hyperactivity disorder, unspecified type; F31.9 Bipolar disorder, unspecified; F17.290 Nicotine dependence, other tobacco product, uncomplicated; F12.90 Cannabis use, unspecified, uncomplicated; Z79.899 Other long term (current) drug therapy
CPT/HCPCS: 70496; 70450; 70498; 99284; 96374; 96375 ×2; 96361 ×2; J2270; J2765; J1885; Q9967

== ENCOUNTER → 2022-08-13 | Outpatient (CLI) | payer OTHER ==
--- NOTE | 2022-08-13 09:10 | XR ---
EXAMINATION TYPE: XR shoulder complete RT DATE OF EXAM: 08/13/2022 COMPARISON: NONE HISTORY: Pain TECHNIQUE: Three views are submitted. FINDINGS: The osseous structures are intact. There is no acute fracture or dislocation. Mild hypertrophic winter ge at the AC joint.. IMPRESSION: 1. Mild hypertrophic change at the AC joint with a tiny spur on lower margin of the acromion. Correla te for impingement.
[2022-08-13 22:13] LABS: Gliadin AB IgA, Deaminated Negative (Negative); Gliadin AB IgA, Unit <0.5 U/mL; Gliadin AB IgG, Deaminated Negative (Negative); Gliadin AB IgG, Unit <0.4 U/mL
== END | disposition home or self-care (01) ==
LOC: LABWHC1 08:40
PROVIDERS: ATTEND Nurse Practitioner Family
DX: M25.511 Pain in right shoulder (principal); R19.4 Change in bowel habit; R16.0 Hepatomegaly, not elsewhere classified
CPT/HCPCS: 36415; 83516; 85652; 86140

== ENCOUNTER 2022-09-05 06:29 | Day surgery (SDC) | payer OTHER ==
[2022-09-05] MEDS ORDERED: LACTATED RINGERS 1,000 ML IV SCH (07:03)
[2022-09-05 07:07] VITALS: TEMP 97.3
[2022-09-05 07:15] LABS: Glucose,Whole Blood 103 mg/dL (70-110)
[2022-09-05] MEDS ORDERED: PROPOFOL 10 MG/ML 20 ML VIAL IV ONE (07:32)
[2022-09-05] MEDS ORDERED: fentaNYL (PF) 50 MCG/ML 2 ML AMP ONE (07:32)
[2022-09-05] MEDS ORDERED: MIDAZOLAM 2 MG/2 ML VIAL ONE (07:32)
[2022-09-05] MEDS ORDERED: LIDOCAINE 2% INJ 20 MG/ML (2 ML VIAL) ONE (07:32)
--- NOTE | 2022-09-05 07:59 | P.PCN ---
Date of Procedure: 09/05/22 Procedure(s) Performed: Brief history: Patient is a pleasant 37-year-old white female scheduled for an elective upper endoscopy as well as colonoscopy as a part of evaluation of chronic epigastric pain and diarrhea for the last 3 months duration. She has not was anywhere from 7-10 a day which are loose to watery in consistency but no blood or mucus in the stool. Procedure performed: Esophagogastroduodenoscopy with biopsy Colonoscopy with biopsy Preoperative diagnosis: Epigastric pain Chronic diarrhea Anesthesia: MAC Procedure: After informed consent was obtained from the patient was brought into the endoscopy unit and IV sedation was administered by anesthesia under continuous monitoring. Initially upper endoscopy was done. The Olympus GF 160 video endoscope was inserted inserted into the mouth and esophagus intubated without any difficulty and was gradually advanced into the stomach and duodenum and carefully examined. The bulb and second part of the duodenum appeared normal. Biopsies were done from the duodenum to rule out celiac disease. The scope was then withdrawn into the stomach adequately insufflated with air and upon careful examination the antrum and minimal gastritis and biopsies were done from this area. Mucosa of the body, cardia and fundus appeared normal. The scope was then withdrawn into the esophagus. The GE junction was located at 40 cm to the incisors. It appeared regular with no erythema erosions or ulcerations. Rest of the esophagus appeared normal. Patient tolerated the procedure well. At this time the patient continued to remain sedation. Initial digital rectal examination was normal. Olympus CF 160 video colonoscope was then inserted into the rectum and gradually advanced to the cecum without any difficulty. Careful examination was performed as the scope was gradually being withdrawn. The prep was excellent. The cecum, ascending colon, transverse colon, descending colon, sigmoid colon and rectum appeared normal. random biopsies were done from the ascending and descending colon to rule out microscopic/collagenous colitis R etroflexion was performed in the rectum and no lesions were noted. Patient tolerated the procedure well. Impression: 1. Upper Endoscopy revealed mild antral gastritis but no evidence of esophagitis or peptic ulcer disease 2. Colonoscopy was within normal limits with no evidence of colorectal neoplasia Recommendations: Findings of this examination were discussed with the patient as well as her family. She was advised to follow with the biopsy results. She'll be seen in office in 2-3 weeks.
[2022-09-05 08:20] VITALS: BP 118/65; PULSE 77; RESP 18
== END 2022-09-05 08:41 | disposition home or self-care (01) ==
LOC: ORWHC2ENDO 06:29
PROVIDERS: ATTEND Internal Medicine Gastroenterology
DX: K29.50 Unspecified chronic gastritis without bleeding (principal); K52.9 Noninfective gastroenteritis and colitis, unspecified; K29.80 Duodenitis without bleeding; J45.909 Unspecified asthma, uncomplicated; E07.9 Disorder of thyroid, unspecified; F41.9 Anxiety disorder, unspecified; F32.A Depression, unspecified; Z79.899 Other long term (current) drug therapy
CPT/HCPCS: 81025; 88305; 45380; 43239; J2250; J3010; J2704; J2001

== ENCOUNTER 2022-09-24 09:08 | Emergency (ER) | payer OTHER ==
[2022-09-24 09:19] VITALS: TEMP 97
[2022-09-24] MEDS ORDERED: IPRATROPIUM-ALBUTEROL 3 ML NEB INHALATION STA ×2 (09:27→10:16)
[2022-09-24] MEDS ORDERED: guaiFENesin-DM 600/30MG 1 EACH TAB.ER.12H PO ONE (09:27)
--- NOTE | 2022-09-24 09:40 | XR ---
EXAMINATION TYPE: XR chest 2V DATE OF EXAM: 09/24/2022 COMPARISON: 11/20/2018 HISTORY: 37-year-old female difficulty in breathing, cough and congestion TECHNIQUE: PA and lateral views FINDINGS: Heart normal size. Aorta and pulmonary vasculature are within normal limits. Mild central interstitia l prominence without consolidation or pleural effusion. IMPRESSION: Some central interstitial prominence could reflect bronchitis or asthma. No focal infiltrate seen.
--- NOTE | 2022-09-24 09:43 | ED ---
SOB HPI - General Chief Complaint: Shortness of Breath Stated Complaint: sob Time Seen by Provider: 09/24/22 09:20 Source: EMS, RN notes reviewed Mode of arrival: EMS Limitations: no limitations - History of Present Illness Initial Comments: This is a 37-year-old female who presents to the emergency department for shortness of breath. States that this started 2 weeks ago, but became much worse today. Reports a history of asthma and states that this feels like an exacerbation. Her albuterol inhaler was , and she tried using it for the first time today with no effect. She has also been having ongoing coughing. She is not taking any medication for her symptoms aside from trying the albuterol inhaler today that ended up being . Believes that all of this was all triggered by the poor air quality. States that she is coughing so much each morning that she proceeds to vomit. However, she typically only vomits once. Denies currently feeling nauseous. Denies any fevers, chills, sore throat, cough, chest pain, palpitations, abdominal pain, diarrhea, back pain, or headaches. MD Complaint: shortness of breath - Related Data Home Medications Medication Instructions Recorded Confirmed Olphenadrine(Unk) 100 mg PO DAILY PRN 09/03/22 09/03/22 Previous Rx's Medication Instructions Recorded Albuterol Sulfate [Albuterol 1 puff PO Q4-6H #8.5 gm 09/24/22 Sulfate Hfa] Ipratropium-Albuterol Nebulize 3 ml INHALATION Q4-6H PRN #90 ml 09/24/22 [Duoneb 0.5 mg-3 mg/3 ml Soln] predniSONE 50 mg PO DAILY 5 Days #5 tab 09/24/22 Allergies Allergy/AdvReac Type Severity Reaction Status Date / Time No Known Allergies Allergy Verified 09/05/22 07:08 Review of Systems ROS Statement: Those systems with pertinent positive or pertinent negative responses have been documented in the HPI. ROS Other: All systems not noted in ROS Statement are negative. Past Medical History Past Medical History: Asthma, GERD/Reflux, Thyroid Disorder Additional Past Medical History / Comment(s): seizure x1 at 18 yrs old (states due to overdose),? TIA 2017., seasonal asthma., Hypoglycemia. ,frequent diarrhea., hypothyroid., -LMP Sep 2018., States carpal tunnel syndrome mateus. hands. History of Any Multi-Drug Resistant Organisms: None Reported Past Surgical History: Section Past Anesthesia/Blood Transfusion Reactions: Postoperative Nausea & Vomiting (PONV) Additional Drug Use History / Comment(s): states cbd oil - Past Family History Father Family Medical History: Diabetes Mellitus General Exam Limitations: no limitations General appearance: alert, in no apparent distress Head exam: Present: atraumatic, normocephalic, normal inspection Respiratory exam: Present: decreased breath sounds, prolonged expiratory, other (Expiratory wheezes in all lung baeza) Cardiovascular Exam: Present: regular rate, normal rhythm, normal heart sounds. Absent: systolic murmur, diastolic murmur, rubs, gallop, clicks Neurological exam: Present: alert, oriented X3, CN II-XII intact Psychiatric exam: Present: normal affect, normal mood Skin exam: Present: warm, dry, intact, normal color. Absent: rash Course Vital Signs 09/24/22 09/24/22 09/24/22 09:11 09:43 09:51 Temperature 97 F L Pulse Rate 65 61 65 Respiratory 18 Rate Blood Pressure 106/71 O2 Sat by Pulse 99 Oximetry 09/24/22 09/24/22 09/24/22 11:10 11:20 11:53 Temperature Pulse Rate 68 68 72 Respiratory 16 Rate Blood Pressure 108/73 O2 Sat by Pulse 98 Oximetry Medical Decision Making - Medical Decision Making This is a 37-year-old female who presents to the emergency department for shortness of breath. Was pt. sent in by a medical professional or institution? @ -No Did you speak to anyone other than the patient for history? @ -No Did you review nursing and triage notes? @ -Yes, and I agree, it is accurate with regards to the patient's symptoms. Were old charts reviewed? @ -No Differential Diagnosis? @ -Differential Dyspnea: Coronary syndrome, arrhythmia, tamponade, asthma, COPD, pulmonary embolism, pneumonia, pneumothorax, pulmonary effusion, anaphylaxis, diabetic ketoacidosis, flailed chest, pulmonary contusion, diaphragmatic rupture, anemia, neuromuscular, this is not meant to be an all-inclusive list. EKG interpreted by me (3pts min.)? @ -EKG interpreted by me demonstrating the following: Sinus rhythm. Ventricular rate 71 bpm, NM interval 165 ms, QRS duration 90 ms, QTC 404 ms. X-rays interpreted by me (1pt min.)? @ -Chest x-ray obtained, my interpretation identifies no localized consolidations or infiltrates. CT interpreted by me (1pt min.)? @ -Not obtained U/S interpreted by me (1pt. min.)? @ -Not obtained What testing was considered but not performed? (CT, X-rays, U/S, labs)? Why? @ -None What meds were considered but not given? Why? @ -None Did you discuss the management of the patient with other professionals? @ -No Did you reconcile home meds? @ -No Was smoking cessation discussed for >3mins.? @ -No Was critical care preformed (if so, how long)? @ -No Were there social determinants of health that impacted care today? How? (Homelessness, low income, unemployed, alcoholism, drug addiction, transportation, low edu. Level, literacy, decrease access to med. care, alf, rehab)? @ -No Was there de-escalation of care discussed even if they declined? (Discuss DNR or withdrawal of care, Hospice)? @ -No What co-morbidities impacted this encounter? (DM, HTN, Smoking, COPD, CAD, Cancer, CVA, Hep., AIDS, mental health diagnosis, sleep apnea, morbid obesity)? @ -Asthma Was patient admitted / discharged? @ -Discharged. Chest x-ray obtained revealing no acute process. Covid, influenza, and RSV testing were negative. She was initially given 1 DuoNeb breathing treatment with some relief in symptoms. She was subsequently given a second DuoNeb breathing treatment, and found this much more beneficial. She also had less wheezing and better air movement on auscultation of the lungs after both breathing treatments. Patient overall felt much better and stable for discharge home. Symptoms most consistent with an asthma exacerbation or asthmatic bronchitis. Prescription for albuterol inhaler, DuoNeb breathing treatments, and prednisone provided with dosing instructions reviewed. Advised close follow-up with her PCP for reevaluation. Undiagnosed new problem with uncertain prognosis? @ -None Drug Therapy requiring intensive monitoring for toxicity (Heparin, Nitro, Insulin, Cardizem)? @ -None Were any procedures done? @ -None Diagnosis/symptom? @ -Asthma exacerbation Acute, or Chronic, or Acute on Chronic? @ -Acute Uncomplicated (without systemic symptoms) or Complicated (systemic symptoms)? @ -Uncomplicated Side effects of treatment? @ -None Exacerbation, Progression, or Severe Exacerbation] @ -Not applicable Poses a threat to life or bodily function? @ -No Return precautions reviewed in depth, the patient is instructed to return to the emergency department with any new, worsening, or concerning symptoms. Patient verbalized understanding. This case was discussed in detail with the attending ED physician, Dr. Rodriguez. Presentation, findings, and treatment plan discussed in detail as well. - Lab Data Lab Results 09/24/22 09/24/22 Range/Units 10:00 10:07 Urine HCG, Qual Not Detected (Not Detectd) Influenza Type A (PCR) Not Detected (Not Detectd) Influenza Type B (PCR) Not Detected (Not Detectd) RSV (PCR) Not Detected (Not Detectd) SARS-CoV-2 (PCR) Not Detected (Not Detectd) - Radiology Data Radiology results: report reviewed, image reviewed Disposition Clinical Impression: Asthma with acute exacerbation Disposition: HOME SELF-CARE Instructions (If sedation given, give patient instructions): Asthma (ED), Bronchospasm (ED), Wheezing (ED) Additional Instructions: Return to the emergency department with any new, worsening, or concerning symptoms. Take the prednisone daily for 5 days. You can use either the albuterol inhaler or nebulizer treatments up to every 4-6 hours as needed. You can also use over the counter cough medication for further management of your symptoms. Follow up with your primary care provider in 1-2 days. Prescriptions: Albuterol Sulfate [Albuterol Sulfate Hfa] 1 puff PO Q4-6H #8.5 gm Ipratropium-Albuterol Nebulize [Duoneb 0.5 mg-3 mg/3 ml Soln] 3 ml INHALATION Q4-6H PRN #90 ml PRN Reason: Shortness Of Breath predniSONE 50 mg PO DAILY 5 Days #5 tab Is patient prescribed a controlled substance at d/c from ED?: No Referrals: Maximilian Greene MD [Primary Care Provider] - 1-2 days
[2022-09-24] MEDS ORDERED: DEXAMETHASONE SOD PHOSPHATE 10 MG/ML 1 ML VIAL IM STA (10:16)
[2022-09-24 11:54] VITALS: BP 108/73; PULSE 72; RESP 16
== END 2022-09-24 12:07 | disposition home or self-care (01) ==
LOC: EC 09:08
DX: J45.901 Unspecified asthma with (acute) exacerbation (principal); Z86.73 Personal history of transient ischemic attack (TIA), and cerebral infarction without residual deficits; Z79.899 Other long term (current) drug therapy; Z20.822 Contact with and (suspected) exposure to COVID-19
CPT/HCPCS: 94640 ×2; 93005; 81025; 87636; 71046; 99285; J1100; 96372

== ENCOUNTER → 2023-01-12 | Outpatient (CLI) | payer OTHER ==
--- NOTE | 2023-01-16 20:51 | MR ---
EXAMINATION TYPE: MR shoulder RT wo con DATE OF EXAM: 01/12/2023 COMPARISON: Right shoulder radiograph 08/13/2022 HISTORY: Right shoulder pain and numbness, loss of motion TECHNIQUE: Multiplanar, multisequence imaging of the right shoulder is performed without contrast. FINDINGS: SUPRASPINATUS: Intact. 3 mm low T1/T2 signal structure within the tendon representing calcification i n the setting of calcific tendinosis INFRASPINATUS: Intact. 8 mm low T1/T2 signal structure within the tendon representing calcification i n the setting of calcific tendinosis SUBSCAPULARIS: Normal. TERES MINOR: Normal. BICEPS: Normal. Normal anchor on the supraglenoid tubercle. Extra-articular portion appropriately pos itioned within the bicipital groove. GLENOHUMERAL JOINT: Normal alignment and joint space. Normal articular cartilage. No effusion. ACROMIOCLAVICULAR JOINT: Small amount of undersurface osteophytic spurring which slightly narrows the subacromial space. Normal alignment. No effusion. LABRUM: Grossly normal without tear, given the limitations of a nonarthrographic exam SUBDELTOID BURSA: Normal. MUSCLES: Normal. BONE MARROW: Normal OTHER: Normal subcutaneous tissues. Normal neurovascular structures. IMPRESSION: 1. Intact rotator cuff. 2. Calcific tendinosis involving the supraspinatus and infraspinatus tendons. 3. Mild AC joint osteoarthrosis.
== END | disposition home or self-care (01) ==
LOC: RADMRIMAIN 17:20
PROVIDERS: ATTEND Family Medicine
DX: M19.011 Primary osteoarthritis, right shoulder (principal); M67.813 Other specified disorders of tendon, right shoulder

== ENCOUNTER 2023-04-08 09:04 | Emergency (ER) | payer OTHER ==
[2023-04-08] MEDS: methylPREDNISolone SOD SUCCI 125 MG/2 ML VIAL IV STA (09:26)
[2023-04-08] MEDS: FAMOTIDINE 20 MG/2 ML VIAL IV STA (09:26)
[2023-04-08] MEDS: diphenhydrAMINE 50 MG/ML 1 ML VIAL IVP STA (09:26)
--- NOTE | 2023-04-08 10:19 | ED ---
Allergic Reaction HPI - General Chief complaint: Allergic Reaction Stated complaint: ALLERGIC REACTION Time Seen by Provider: 04/08/23 09:11 Source: patient, RN notes reviewed Mode of arrival: ambulatory Limitations: no limitations - History of Present Illness Initial Comments: 37-year-old female presents emergency department due to a allergic reaction. Patient states this started at work when she was exposed to a face cleaner in the bathroom. Patient states that she is very itchy all over redness, swelling. Patient states she has never had a reaction like this in the past. Has not taking medications prior to arrival - Related Data Home Medications Medication Instructions Recorded Confirmed Olphenadrine(Unk) 100 mg PO DAILY PRN 09/03/22 09/03/22 Previous Rx's Medication Instructions Recorded Albuterol Sulfate [Albuterol 1 puff PO Q4-6H #8.5 gm 09/24/22 Sulfate Hfa] Ipratropium-Albuterol Nebulize 3 ml INHALATION Q4-6H PRN #90 ml 09/24/22 [Duoneb 0.5 mg-3 mg/3 ml Soln] predniSONE 50 mg PO DAILY 5 Days #5 tab 09/24/22 predniSONE 50 mg PO DAILY #3 tab 04/08/23 Allergies Allergy/AdvReac Type Severity Reaction Status Date / Time No Known Allergies Allergy Verified 04/08/23 09:10 Review of Systems ROS Statement: Those systems with pertinent positive or pertinent negative responses have been documented in the HPI. ROS Other: All systems not noted in ROS Statement are negative. Past Medical History Past Medical History: Asthma, GERD/Reflux, Thyroid Disorder Additional Past Medical History / Comment(s): seizure x1 at 18 yrs old (states due to overdose),? TIA 2017., seasonal asthma., Hypoglycemia. ,frequent diarrhea., hypothyroid., -LMP Sep 2018., States carpal tunnel syndrome mateus. hands. History of Any Multi-Drug Resistant Organisms: None Reported Past Surgical History: Section Past Anesthesia/Blood Transfusion Reactions: Postoperative Nausea & Vomiting (PONV) Past Psychological History: ADD/ADHD, Bipolar, Depression Smoking Status: Vaper Past Alcohol Use History: Occasional Past Drug Use History: Marijuana - Past Family History Father Family Medical History: Diabetes Mellitus General Exam Limitations: no limitations General appearance: alert, in no apparent distress Head exam: Present: atraumatic, normocephalic, normal inspection Eye exam: Present: normal appearance, PERRL, EOMI. Absent: scleral icterus, conjunctival injection, periorbital swelling ENT exam: Present: normal exam, mucous membranes moist Neck exam: Present: normal inspection, full ROM. Absent: tenderness, meningismus, lymphadenopathy Respiratory exam: Present: normal lung sounds bilaterally. Absent: respiratory distress, wheezes, rales, rhonchi, stridor Cardiovascular Exam: Present: regular rate, normal rhythm, normal heart sounds. Absent: systolic murmur, diastolic murmur, rubs, gallop, clicks Skin exam: Present: warm, dry, intact, normal color, rash, urticaria Course Vital Signs 04/08/23 04/08/23 09:06 09:33 Temperature 97.9 F Pulse Rate 83 Respiratory 18 18 Rate Blood Pressure 118/74 O2 Sat by Pulse 97 Oximetry Medical Decision Making - Medical Decision Making Was pt. sent in by a medical professional or institution (, PA, [employer], urgent care, hospital, or fdc...) When possible be specific @ -No Did you speak to anyone other than the patient for history (EMS, parent, family, police, friend...)? What history was obtained from this source @ -No Did you review nursing and triage notes (agree or disagree)? Why? @ -I reviewed and agree with nursing and triage notes Were old charts reviewed (outside hosp., previous admission, EMS record, old EKG, old radiological studies, urgent care reports/EKG's, fdc records)? Report findings @ -No old charts were reviewed Differential Diagnosis (chest pain, altered mental status, abdominal pain women, abdominal pain men, vaginal bleeding, weakness, fever, dyspnea, syncope, headache, dizziness, GI bleed, back pain, seizure, CVA, palpatations, mental health, musculoskeletal)? @ -Allergic reaction, urticaria, contact dermatitis EKG interpreted by me (3pts min.). @ -[None X-rays interpreted by me (1pt min.). @ -None done CT interpreted by me (1pt min.). @ -None done U/S interpreted by me (1pt. min.). @ -None done What testing was considered but not performed or refused? (CT, X-rays, U/S, labs)? Why? @ -None What meds were considered but not given or refused? Why? @ -None Did you discuss the management of the patient with other professionals (professionals i.e. , PA, [employer], lab, RT, psych nurse, psychotherapist social worker, vinyl installer, teacher, driver license reviewing officer, casey saw operator)? Give summary @ -No Was smoking cessation discussed for >3mins.? @ -No Was critical care preformed (if so, how long)? @ -No Were there social determinants of health that impacted care today? How? (Homelessness, low income, unemployed, alcoholism, drug addiction, transportation, low edu. Level, literacy, decrease access to med. care, penitentiary, rehab)? @ -No Was there de-escalation of care discussed even if they declined (Discuss DNR or withdrawal of care, Hospice)? DNR status @ -No What co-morbidities impacted this encounter? (DM, HTN, Smoking, COPD, CAD, Cancer, CVA, ARF, Chemo, Hep., AIDS, mental health diagnosis, sleep apnea, morbid obesity)? @ -None Was patient admitted / discharged? Hospital course, mention meds given and route, prescriptions, significant lab abnormalities, going to OR and other pertinent info. @ -Did charge patient presented after allergic reaction to chemical exposure. Patient is greatly improved after Solu-Medrol, Pepcid and Benadryl she will be discharged in stable condition to continue antihistamines, steroids to start tomorrow Undiagnosed new problem with uncertain prognosis? @ -No Drug Therapy requiring intensive monitoring for toxicity (Heparin, Nitro, Insulin, Cardizem)? @ -No Were any procedures done? @ -No Diagnosis/symptom? @ -Allergic reaction Acute, or Chronic, or Acute on Chronic? @ -[Acute Uncomplicated (without systemic symptoms) or Complicated (systemic symptoms)? @ -Uncomplicated Side effects of treatment? @ -[No Exacerbation, Progression, or Severe Exacerbation? @ -No Poses a threat to life or bodily function? How? (Chest pain, [place], [place], pneumonia, PE, COPD, DKA, ARF, appy, cholecystitis, CVA, Diverticulitis, Homicidal, Suicidal, threat to staff... and all critical care pts) @ -No Disposition Clinical Impression: Allergic reaction Disposition: HOME SELF-CARE Condition: Stable Instructions (If sedation given, give patient instructions): General Allergic Reaction (ED) Additional Instructions: Please return to the Emergency Department if symptoms worsen or any other concerns. Prescriptions: predniSONE 50 mg PO DAILY #3 tab Is patient prescribed a controlled substance at d/c from ED?: No Referrals: Maximilian Greene MD [Primary Care Provider] - 1-2 days Time of Disposition: 10:18
[2023-04-08 10:44] VITALS: BP 112/72; PULSE 80; RESP 16; TEMP 98
== END 2023-04-08 10:34 | disposition home or self-care (01) ==
LOC: EC 09:04
DX: L50.0 Allergic urticaria (principal); J45.909 Unspecified asthma, uncomplicated; F17.290 Nicotine dependence, other tobacco product, uncomplicated; F12.90 Cannabis use, unspecified, uncomplicated
CPT/HCPCS: 99283; 96374; 96375 ×2; J1200; J2930; J3490

== ENCOUNTER → 2023-04-14 | Outpatient (CLI) | payer OTHER | LOC: CPPFTMAIN 17:01 | PROVIDERS: ATTEND Family Medicine | DX: J45.909 Unspecified asthma, uncomplicated (principal); Z79.899 Other long term (current) drug therapy; Z87.891 Personal history of nicotine dependence | CPT/HCPCS: 94060; 94726; 94729 ==

== ENCOUNTER 2023-08-04 09:06 | Emergency (ER) | payer OTHER ==
--- NOTE | 2023-08-04 10:07 | ED ---
Abdominal Pain HPI - General Chief Complaint: Abdominal Pain Stated Complaint: abd pain Time Seen by Provider: 08/04/23 09:20 Source: patient, RN notes reviewed Mode of arrival: ambulatory Limitations: no limitations - History of Present Illness Initial Comments: This is a 37-year-old female with a past medical history of kidney stones presents emergency department chief complaint of left lower abdominal pain over the past 2 days. Patient is also endorsing symptoms of left flank pain, increase in urinary frequency and urgency. She states that she has had a few episodes of diarrhea the past 2 days as well. She denies fevers, nausea, vomiting, hematuria, hematochezia, dark or tarry stools. previous abdominal surgical history of section. Denies vaginal discharge, last menstrual cycle 3 weeks ago. - Related Data Home Medications Medication Instructions Recorded Confirmed Olphenadrine(Unk) 100 mg PO DAILY PRN 09/03/22 09/03/22 Previous Rx's Medication Instructions Recorded ARIPiprazole [Abilify] 10 mg PO DAILY 30 Days tab 04/20/20 Sertraline [Zoloft] 50 mg PO DAILY 30 Days tab 04/20/20 hydrOXYzine pamoate [Vistaril] 25 mg PO TID PRN 14 Days cap 04/20/20 Albuterol Sulfate [Albuterol 1 puff PO Q4-6H #8.5 gm 09/24/22 Sulfate Hfa] Ipratropium-Albuterol Nebulize 3 ml INHALATION Q4-6H PRN #90 ml 09/24/22 [Duoneb 0.5 mg-3 mg/3 ml Soln] predniSONE 50 mg PO DAILY 5 Days #5 tab 09/24/22 predniSONE 50 mg PO DAILY #3 tab 04/08/23 Ketorolac [Toradol] 10 mg PO Q8HR #15 tab 08/04/23 Allergies Allergy/AdvReac Type Severity Reaction Status Date / Time No Known Allergies Allergy Verified 08/04/23 09:10 Review of Systems ROS Statement: Those systems with pertinent positive or pertinent negative responses have been documented in the HPI. ROS Other: All systems not noted in ROS Statement are negative. Past Medical History Past Medical History: Asthma, Fibromyalgia, GERD/Reflux, Thyroid Disorder Additional Past Medical History / Comment(s): Seasonal allergies, sciatica, bulging discs in neck and lower back, tailbone fx at age 22, History of Any Multi-Drug Resistant Organisms: None Reported Past Surgical History: Section Additional Past Surgical History / Comment(s): x3 Past Anesthesia/Blood Transfusion Reactions: No Reported Reaction, Postoperative Nausea & Vomiting (PONV) Past Psychological History: ADD/ADHD, Anxiety, Bipolar, Depression, PTSD Smoking Status: Vaper, Former smoker Past Alcohol Use History: Occasional, Rare Past Drug Use History: Marijuana - Past Family History Mother History Unknown: Yes Father Family Medical History: Diabetes Mellitus General Exam Limitations: no limitations General appearance: alert, in no apparent distress Head exam: Present: atraumatic, normocephalic, normal inspection Eye exam: Present: normal appearance, PERRL, EOMI. Absent: scleral icterus, conjunctival injection, periorbital swelling ENT exam: Present: normal exam, mucous membranes moist Neck exam: Present: normal inspection. Absent: tenderness, meningismus, lymphadenopathy Respiratory exam: Present: normal lung sounds bilaterally. Absent: respiratory distress, wheezes, rales, rhonchi, stridor Cardiovascular Exam: Present: regular rate, normal rhythm, normal heart sounds. Absent: systolic murmur, diastolic murmur, rubs, gallop, clicks GI/Abdominal exam: Present: soft, tenderness (LLQ), normal bowel sounds, hernia (left lower abdominal reducible mass, no overlything erythema or discoloration). Absent: distended, guarding, rebound, rigid Extremities exam: Present: normal inspection, full ROM, normal capillary refill. Absent: tenderness, pedal edema, joint swelling, calf tenderness Back exam: Present: normal inspection Neurological exam: Present: alert, oriented X3, CN II-XII intact Psychiatric exam: Present: normal affect, normal mood Skin exam: Present: warm, dry, intact, normal color. Absent: rash Course Vital Signs 08/04/23 08/04/23 08/04/23 09:09 10:32 12:23 Temperature 98.2 F 97.7 F 98.1 F Pulse Rate 89 75 83 Respiratory 18 16 16 Rate Blood Pressure 115/79 123/71 113/75 O2 Sat by Pulse 99 96 99 Oximetry Medical Decision Making - Medical Decision Making Was pt. sent in by a medical professional or institution (, PA, [employer], urgent care, hospital, or usp...) When possible be specific @ -No Did you speak to anyone other than the patient for history (EMS, parent, family, police, friend...)? What history was obtained from this source @ -No Did you review nursing and triage notes (agree or disagree)? Why? @ -I reviewed and agree with nursing and triage notes Were old charts reviewed (outside hosp., previous admission, EMS record, old EKG, old radiological studies, urgent care reports/EKG's, usp records)? Report findings @ -No old charts were reviewed Differential Diagnosis (chest pain, altered mental status, abdominal pain women, abdominal pain men, vaginal bleeding, weakness, fever, dyspnea, syncope, headache, dizziness, GI bleed, back pain, seizure, CVA, palpatations, mental health, musculoskeletal)? @ -Differential Abdominal Pain Women: Appendicitis, Cholecystitis, diverticulosis, ischemic bowel, pancreatitis, hepatitis, UTI, gastroenteritis, AAA, incarcerated hernia, bowel obstruction, constipation, inflammatory bowel, hepatitis, peptic ulcer disease, splenic infarction, perforated viscus, vulvitis, ovarian torsion, PID, kidney stone, placenta abruption, this is not meant to be an all-inclusive list EKG interpreted by me (3pts min.). @ -None X-rays interpreted by me (1pt min.). @ -None done CT interpreted by me (1pt min.). @ -None done U/S interpreted by me (1pt. min.). @ -None done What testing was considered but not performed or refused? (CT, X-rays, U/S, labs)? Why? @ -CT imaging and ultrasound were considered but deferred at this time. Patient has been experiencing left lower abdominal pain over the past few weeks that is worsened over the past 2 days. Patient is laboratory interpretation unremarkable for signs of infection. Additionally due to patient's pain persistent over the past few weeks minimal concern for ovarian torsion or acute abdominal process at this time. Patient is in agreement with this. What meds were considered but not given or refused? Why? @ -None Did you discuss the management of the patient with other professionals (professionals i.e. , PA, [employer], lab, RT, psych nurse, nephrology social worker, healthcare network pricing consultant, teacher, senior major gifts officer, mattress spring encaser)? Give summary @ -No Was smoking cessation discussed for >3mins.? @ -No Was critical care preformed (if so, how long)? @ -No Were there social determinants of health that impacted care today? How? (Homelessness, low income, unemployed, alcoholism, drug addiction, transportation, low edu. Level, literacy, decrease access to med. care, senior living, rehab)? @ -No Was there de-escalation of care discussed even if they declined (Discuss DNR or withdrawal of care, Hospice)? DNR status @ -No What co-morbidities impacted this encounter? (DM, HTN, Smoking, COPD, CAD, Cancer, CVA, ARF, Chemo, Hep., AIDS, mental health diagnosis, sleep apnea, morbid obesity)? @ -None Was patient admitted / discharged? Hospital course, mention meds given and route, prescriptions, significant lab abnormalities, going to OR and other pertinent info. @ -Discharged. 37-year-old female with left lower abdominal pain. On examination there is noted a reducible left abdominal hernia with no signs of strangulation. Patient's symptoms she will be evaluated via labs and treated with IV fluids and pain medication, patient is in agreement this plan. Laboratory interpretation including CBC, CMP and urinalysis no acute findings. Discussion with patient to recommend follow-up with her primary care provider this week for further evaluation. At this time acute causes of abdominal processes have been ruled out. Strict return parameters discussed with the patient if abdominal pain worsens or does not improve or if she begins to exp erience worsening diarrhea report back to the ER. Patient reports understanding. All questions answered at bedside. Since pain has improved with administration of Tylenol and Toradol. Discussed with my attending Dr. Fam Undiagnosed new problem with uncertain prognosis? @ -No Drug Therapy requiring intensive monitoring for toxicity (Heparin, Nitro, Insulin, Cardizem)? @ -No Were any procedures done? @ -No Diagnosis/symptom? @ -Abdominal hernia, abdominal pain Acute, or Chronic, or Acute on Chronic? @ -Acute Uncomplicated (without systemic symptoms) or Complicated (systemic symptoms)? @ -Uncomplicated Side effects of treatment? @ -No Exacerbation, Progression, or Severe Exacerbation? @ -No Poses a threat to life or bodily function? How? (Chest pain, USA, DC, pneumonia, PE, COPD, DKA, ARF, appy, cholecystitis, CVA, Diverticulitis, Homicidal, Suicidal, threat to staff... and all critical care pts) @ -No - Lab Data Result diagrams: 08/04/23 10:53 08/04/23 10:53 Lab Results 08/04/23 08/04/23 08/04/23 Range/Units 10:42 10:42 10:53 WBC 7.8 (3.8-10.6) k/uL RBC 4.73 (3.80-5.40) m/uL Hgb 13.2 (11.4-16.0) gm/dL Hct 41.6 (34.0-46.0) % MCV 87.8 (80.0-100.0) fL MCH 27.9 (25.0-35.0) pg MCHC 31.8 (31.0-37.0) g/dL RDW 13.5 (11.5-15.5) % Plt Count 280 (150-450) k/uL MPV 8.0 Neutrophils % 63 % Lymphocytes % 30 % Monocytes % 5 % Eosinophils % 1 % Basophils % 0 % Neutrophils # 4.9 (1.3-7.7) k/uL Lymphocytes # 2.3 (1.0-4.8) k/uL Monocytes # 0.4 (0-1.0) k/uL Eosinophils # 0.1 (0-0.7) k/uL Basophils # 0.0 (0-0.2) k/uL Sodium (137-145) mmol/L Potassium (3.5-5.1) mmol/L Chloride (98-107) mmol/L Carbon Dioxide (22-30) mmol/L Anion Gap mmol/L BUN (7-17) mg/dL Creatinine (0.52-1.04) mg/dL Est GFR (CKD-EPI)AfAm (>60 ml/min/1.73 sqM) Est GFR (CKD-EPI)NonAf (>60 ml/min/1.73 sqM) Glucose (74-99) mg/dL Calcium (8.4-10.2) mg/dL Total Bilirubin (0.2-1.3) mg/dL AST (14-36) U/L ALT (4-34) U/L Alkaline Phosphatase (38-126) U/L Total Protein (6.3-8.2) g/dL Albumin (3.5-5.0) g/dL Amylase (30-110) U/L Lipase (23-300) U/L Urine Color Colorless Urine Appearance Clear (Clear) Urine pH 7.0 (5.0-8.0) Ur Specific Ruth 1.002 (1.001-1.035) Urine Protein Negative (Negative) Urine Glucose (UA) Negative (Negative) Urine Ketones Negative (Negative) Urine Blood Negative (Negative) Urine Nitrite Negative (Negative) Urine Bilirubin Negative (Negative) Urine Urobilinogen <2.0 (<2.0) mg/dL Ur Leukocyte Esterase Negative (Negative) Urine HCG, Qual Not Detected (Not Detectd) 08/04/23 Range/Units 10:53 WBC (3.8-10.6) k/uL RBC (3.80-5.40) m/uL Hgb (11.4-16.0) gm/dL Hct (34.0-46.0) % MCV (80.0-100.0) fL MCH (25.0-35.0) pg MCHC (31.0-37.0) g/dL RDW (11.5-15.5) % Plt Count (150-450) k/uL MPV Neutrophils % % Lymphocytes % % Monocytes % % Eosinophils % % Basophils % % Neutrophils # (1.3-7.7) k/uL Lymphocytes # (1.0-4.8) k/uL Monocytes # (0-1.0) k/uL Eosinophils # (0-0.7) k/uL Basophils # (0-0.2) k/uL Sodium 138 (137-145) mmol/L Potassium 4.3 (3.5-5.1) mmol/L Chloride 105 (98-107) mmol/L Carbon Dioxide 30 (22-30) mmol/L Anion Gap 3 mmol/L BUN 8 (7-17) mg/dL Creatinine 0.44 L (0.52-1.04) mg/dL Est GFR (CKD-EPI)AfAm >90 (>60 ml/min/1.73 sqM) Est GFR (CKD-EPI)NonAf >90 (>60 ml/min/1.73 sqM) Glucose 94 (74-99) mg/dL Calcium 8.7 (8.4-10.2) mg/dL Total Bilirubin 1.0 (0.2-1.3) mg/dL AST 16 (14-36) U/L ALT 14 (4-34) U/L Alkaline Phosphatase 71 (38-126) U/L Total Protein 7.0 (6.3-8.2) g/dL Albumin 4.0 (3.5-5.0) g/dL Amylase 50 (30-110) U/L Lipase 41 (23-300) U/L Urine Color Urine Appearance (Clear) Urine pH (5.0-8.0) Ur Specific Ruth (1.001-1.035) Urine Protein (Negative) Urine Glucose (UA) (Negative) Urine Ketones (Negative) Urine Blood (Negative) Urine Nitrite (Negative) Urine Bilirubin (Negative) Urine Urobilinogen (<2.0) mg/dL Ur Leukocyte Esterase (Negative) Urine HCG, Qual (Not Detectd) Disposition Clinical Impression: Lower abdominal pain, Hernia Disposition: HOME SELF-CARE Condition: Good Instructions (If sedation given, give patient instructions): Abdominal Pain (ED) Additional Instructions: Return to the emergency department if symptoms worsen or not improve. Follow-up as scheduled with your primary care provider this week for further evaluation. take pain medication as needed. Prescriptions: Ketorolac [Toradol] 10 mg PO Q8HR #15 tab Is patient prescribed a controlled substance at d/c from ED?: No Referrals: Maximilian Greene MD [Primary Care Provider] - 1-2 days Time of Disposition: 11:36
[2023-08-04 10:35] VITALS: RESP 16
[2023-08-04] MEDS: SODIUM CHLORIDE 0.9% 1,000 ML IV STA (10:49)
[2023-08-04] MEDS: ACETAMINOPHEN TAB 500 MG TAB PO STA (10:52)
[2023-08-04 10:56] LABS: Appearance,Urine Clear (Clear); Bilirubin,Urine Negative (Negative); Blood,Urine Negative (Negative); Color,Urine Colorless; Glucose,Urine (UA) Negative (Negative); Ketones,Urine Negative (Negative); Leukocyte Esterase,Urine Negative (Negative); Nitrite,Urine Negative (Negative); Protein,Urine Negative (Negative); Specific Gravity,Urine 1.002 (1.001-1.035); Urobilinogen,Urine <2.0 mg/dL (<2.0)
[2023-08-04 10:57] LABS: Basophils % (A) 0 %; Eosinophils # (A) 0.1 k/uL (0-0.7); Eosinophils % (A) 1 %; HCT 41.6 % (34.0-46.0); HGB 13.2 gm/dL (11.4-16.0); Lymphocytes # (A) 2.3 k/uL (1.0-4.8); Lymphocytes % (A) 30 %; MCH 27.9 pg (25.0-35.0); MCHC 31.8 g/dL (31.0-37.0); MCV 87.8 fL (80.0-100.0); Monocytes # (A) 0.4 k/uL (0-1.0); Monocytes % (A) 5 %; Neutrophils # (A) 4.9 k/uL (1.3-7.7); Neutrophils % (A) 63 %; Platelet Count 280 k/uL (150-450); RBC 4.73 m/uL (3.80-5.40); RDW 13.5 % (11.5-15.5); WBC 7.8 k/uL (3.8-10.6)
[2023-08-04 11:15] LABS: ALT 14 U/L (4-34); AST 16 U/L (14-36); African American GFR (CKD) >90 (>60 ml/min/1.73 sqM); Alkaline Phosphatase 71 U/L (38-126); Amylase 50 U/L (30-110); Anion Gap 3 mmol/L; Blood Urea Nitrogen 8 mg/dL (7-17); Calcium 8.7 mg/dL (8.4-10.2); Carbon Dioxide 30 mmol/L (22-30); Chloride 105 mmol/L (98-107); Glucose 94 mg/dL (74-99); Lipase 41 U/L (23-300); Non-African American GFR(CKD) >90 (>60 ml/min/1.73 sqM); Potassium 4.3 mmol/L (3.5-5.1); Sodium 138 mmol/L (137-145)
[2023-08-04] MEDS: KETOROLAC 15 MG/ML 1 ML VIAL IVP STA (12:19)
[2023-08-04 12:29] VITALS: BP 113/75; PULSE 83; TEMP 98.1
== END 2023-08-04 12:35 | disposition home or self-care (01) ==
LOC: EC 09:06
DX: K46.9 Unspecified abdominal hernia without obstruction or gangrene (principal); F17.290 Nicotine dependence, other tobacco product, uncomplicated; F12.90 Cannabis use, unspecified, uncomplicated
CPT/HCPCS: 36415; 80053; 82150; 83690; 85025; 81003; 81025; 99284; 96360; J1885

== ENCOUNTER → 2023-08-11 | Outpatient (CLI) | payer OTHER ==
--- NOTE | 2023-08-11 11:37 | XR ---
EXAMINATION TYPE: XR KUB DATE OF EXAM: 08/11/2023 COMPARISON: NONE HISTORY: pain left lower quadrant TECHNIQUE: One view abdominal series FINDINGS: The osseous structures are intact. The bowel gas pattern is nonspecific. Lung bases are clear. Punc alvarez calcifications overlying the right hemipelvis nonspecific. IMPRESSION: 1. Nonspecific abdomen. No obstruction. 2. A tiny punctate right hemipelvic calcifications too small characterize. Could be vascular.
--- NOTE | 2023-08-11 18:01 | CT ---
EXAMINATION TYPE: CT abdomen pelvis wo con DATE OF EXAM: 08/11/2023 HISTORY: ABD PAIN/ABNORMAL kub CT DLP: 1011.4 mGycm. Automated Exposure Control for Dose Reduction was Utilized. TECHNIQUE: CT scan of the abdomen and pelvis is performed without oral or IV contrast. COMPARISON: Prior CT June 25, 2018 FINDINGS: Within the limitations of a non-contrast study, the following observations are made. LUNG BASES: No significant abnormality is appreciated. LIVER/GB: No significant abnormality is appreciated. PANCREAS: No significant abnormality is seen. SPLEEN: No significant abnormality is seen. ADRENALS: No significant abnormality is seen. KIDNEYS: There is nonobstructing 4 mm calculus in the right kidney lower pole level axial image 38. N o left-sided nephrolithiasis. No hydronephrosis seen bilaterally. No intraluminal calculus in the wayne dder. Some tiny right-sided pelvic calcified phleboliths. BOWEL: No abnormal small or large bowel dilatation.. GENITAL ORGANS: Anteverted uterus. LYMPH NODES: No greater than 1cm abdominal or pelvic lymph nodes are appreciated. OSSEOUS STRUCTURES: No significant abnormality is seen. OTHER: Tiny fat-containing umbilical hernia sagittal image 88. IMPRESSION: No bowel obstruction. No acute findings identified on noncontrast CT.
== END | disposition home or self-care (01) ==
LOC: RADXRMAIN 11:07
PROVIDERS: ATTEND Family Medicine
DX: N94.89 Other specified conditions associated with female genital organs and menstrual cycle (principal); R10.32 Left lower quadrant pain
CPT/HCPCS: 74018; 74176

== ENCOUNTER → 2023-09-02 | Day surgery (SDC) | payer OTHER ==
[2023-08-31 10:43] VITALS: BMI 41.6
[~2023-09-02] MED LIST: DEXAMETHASONE SOD PHOSPHATE 4 MG/ML 1 ML VIAL ONE; HYDROmorphone 0.5 MG/0.5 ML SYRINGE IVP PRN; KETOROLAC 15 MG/ML 1 ML VIAL ONE; LIDOCAINE 4% LTA KIT (4 ML) TOPICAL ONE; MIDAZOLAM 2 MG/2 ML VIAL ONE; PROPOFOL 10 MG/ML 20 ML VIAL IV ONE; ROCURONIUM 10 MG/ML (5 ML VIAL) IV ONE; ROPIVACAINE 5 MG/ML 30 ML VIAL ONE; SODIUM CHLORIDE 0.9% (PF) 10 ML VIAL ONE; fentaNYL (PF) 50 MCG/ML 2 ML AMP ONE
[2023-09-02] MEDS: IV FLUID CONTINUATION 1,000 ML IV ONE ×2 (09:44→13:36)
[2023-09-02] MEDS: LACTATED RINGERS 1,000 ML IV SCH (10:14)
[2023-09-02] MEDS: DEXAMETHASONE SOD PHOSPHATE 4 MG/ML 1 ML VIAL IV ONE (10:14)
[2023-09-02] MEDS: ONDANSETRON 4 MG/2 ML VIAL IVP ONE (10:14)
[2023-09-02] MEDS: ACETAMINOPHEN TAB 500 MG TAB PO PRN (10:15)
[2023-09-02] MEDS: MIDAZOLAM 2 MG/2 ML VIAL IVP ONE (10:19)
[2023-09-02] MEDS: fentaNYL (PF) 50 MCG/ML 2 ML AMP IVP ONE (10:19)
[2023-09-02] MEDS: HEPARIN SODIUM,PORCINE 5,000 UNIT/ML 1 ML VIAL SQ PRN (10:30)
[2023-09-02] MEDS: LIDOCAINE 1%-EPI 1:100,000 20 ML VIAL SQ ONE (11:11)
--- NOTE | 2023-09-02 11:29 | P.OP ---
Date of Procedure: 09/02/23 Preoperative Diagnosis: Incisional hernia Postoperative Diagnosis: incisional hernia Procedure(s) Performed: open repair of incisional hernia Anesthesia: FRANCIS Surgeon: Abdi Hurley Estimated Blood Loss (ml): 5 Pathology: other (abdominal wall mass) Condition: stable Disposition: PACU Description of Procedure: the patient's placed on the operative table in the supine position. She received general anesthesia. Her abdomen was prepped and draped usual sterile fashion. The patient had a incisional hernia located at the lateral left aspect of her Pfannenstiel incision. The skin was incised and using blunt sharp dissection the hernia was identified. There was a subcutaneous venous mass that was dissected free and sent to pathology. The hernia defect was then closed using. 0 Ethibond suture. The skin was closed interrupted 3-0 Monocryl suture. Dermabond was applied. Patient top she will well. She was sent to recovery room stable condition.
[2023-09-02 11:36] VITALS: TEMP 97
--- NOTE | 2023-09-02 11:42 | P.ANPRN ---
Procedure Note - Anesthesia - Nerve Block Performed Bilateral Erector Spinae Single Time Out Performed: Yes Date of Procedure: 09/02/23 Procedure Start Time: 10:18 Procedure Stop Time: :25 Location of Patient: PreOp Indication: Acute Post-Operative Pain, Requested by Surgeon Sedation Type: Sedate with meaningful contact maintained Preparation: Sterile Prep Position: Prone Needle Types: Pajunk Needle Gauge: 21 Ultrasound used to visualize needle placement: Yes Ultrasound used to observe medication spread: Yes Injectate: 0.5% Ropivacaine (see comment for volume) (20 mL +10 ml of normal saline +4 mg of dexamethasone per side) Blood Aspirated: No Pain Paresthesia on Injection Noted: No Resistance on Injection: Normal Image Stored and Saved: Yes Events: Uneventful and Well Tolerated
[2023-09-02 12:31] VITALS: RESP 16
[2023-09-02 13:51] VITALS: BP 133/82; PULSE 90
== END | disposition home or self-care (01) ==
LOC: OR 09:21
PROVIDERS: ATTEND Surgery
DX: K43.2 Incisional hernia without obstruction or gangrene (principal); L90.5 Scar conditions and fibrosis of skin; G89.18 Other acute postprocedural pain; J45.909 Unspecified asthma, uncomplicated; E07.9 Disorder of thyroid, unspecified; F17.290 Nicotine dependence, other tobacco product, uncomplicated; E66.9 Obesity, unspecified; Z68.41 Body mass index [BMI] 40.0-44.9, adult; K21.9 Gastro-esophageal reflux disease without esophagitis; M79.7 Fibromyalgia; Z91.09 Other allergy status, other than to drugs and biological substances; Z79.899 Other long term (current) drug therapy
CPT/HCPCS: 49591; 81025; 64999; 88305; 88342; J2250; J1644; J1100; J0690; J2405; J3010; J2795; J1885; J2704

== ENCOUNTER → 2023-09-17 | Outpatient (CLI) | payer OTHER ==
[2023-09-17 18:29] LABS: Basophils # (A) 0.03 X 10*3/uL (0.00-0.10); Basophils % (A) 0.3 %; Eosinophils # (A) 0.23 X 10*3/uL (0.04-0.35); Eosinophils % (A) 2.2 %; HCT 38.6 % (37.2-46.3); HGB 12.4 g/dL (12.0-15.0); Lymphocytes # (A) 3.03 X 10*3/uL (0.90-5.00); Lymphocytes % (A) 28.5 %; MCH 28.1 pg (27.0-32.0); MCHC 32.1 g/dL (32.0-37.0); MCV 87.3 FL (80.0-97.0); Mean Platelet Volume 11.2 FL (9.5-12.2); Monocytes # (A) 0.73 X 10*3/uL (0.20-1.00); Monocytes % (A) 6.9 %; NRBC Per 100 WBC 0 X 10*3/uL (0.00-0.01); Neutrophils # (A) 6.55 X 10*3/uL (1.80-7.70); Neutrophils % (A) 61.6 %; Platelet Count 346 X 10*3/uL (140-440); RBC 4.42 X 10*6/uL (4.10-5.20); RDW 13.3 % (11.5-14.5); WBC 10.62 X 10*3/uL (4.50-10.00)
== END | disposition home or self-care (01) ==
LOC: LABPAT 13:50
PROVIDERS: ATTEND Surgery
DX: Z01.818 Encounter for other preprocedural examination (principal); K42.9 Umbilical hernia without obstruction or gangrene
CPT/HCPCS: 36415; 85025; 86850; 86900; 86901; 93005

== ENCOUNTER 2023-09-23 05:47 | Day surgery (SDC) | payer OTHER ==
[2023-09-17 14:18] VITALS: BMI 42.0
[~2023-09-23 05:47] MED LIST changes: -DEXAMETHASONE SOD PHOSPHATE 4 MG/ML 1 ML VIAL ONE; -HYDROmorphone 0.5 MG/0.5 ML SYRINGE IVP PRN; -KETOROLAC 15 MG/ML 1 ML VIAL ONE; +LIDOCAINE 1% (10MG/ML) FOR IV START INTRADERMA PRN; -LIDOCAINE 4% LTA KIT (4 ML) TOPICAL ONE; -MIDAZOLAM 2 MG/2 ML VIAL ONE; -PROPOFOL 10 MG/ML 20 ML VIAL IV ONE; -ROCURONIUM 10 MG/ML (5 ML VIAL) IV ONE; -ROPIVACAINE 5 MG/ML 30 ML VIAL ONE; -SODIUM CHLORIDE 0.9% (PF) 10 ML VIAL ONE; -fentaNYL (PF) 50 MCG/ML 2 ML AMP ONE
[2023-09-23] MEDS: IV FLUID CONTINUATION 1,000 ML IV ONE (06:23)
[2023-09-23] MEDS: ACETAMINOPHEN TAB 500 MG TAB PO PRN (06:31)
[2023-09-23] MEDS: DEXAMETHASONE SOD PHOSPHATE 4 MG/ML 1 ML VIAL IV ONE (06:31)
[2023-09-23] MEDS: HEPARIN SODIUM,PORCINE 5,000 UNIT/ML 1 ML VIAL SQ PRN (06:32)
[2023-09-23] MEDS: ONDANSETRON 4 MG/2 ML VIAL IVP ONE (06:32)
[2023-09-23] MEDS: LACTATED RINGERS 1,000 ML IV SCH (06:32)
[2023-09-23 06:40] LABS: Glucose,Whole Blood 92 mg/dL (70-110)
[2023-09-23 06:43] VITALS: TEMP 97.2
[2023-09-23] MEDS: MIDAZOLAM 2 MG/2 ML VIAL IV PRN (06:51)
--- NOTE | 2023-09-23 07:06 | P.ANPRN ---
Procedure Note - Anesthesia - Nerve Block Performed Bilateral Rectus Abdominis Single Time Out Performed: Yes Date of Procedure: 09/23/23 Procedure Start Time: 06:50 Procedure Stop Time: 06:55 Location of Patient: PreOp Indication: Acute Post-Operative Pain, Analgesia, Requested by Surgeon Sedation Type: Sedate with meaningful contact maintained Preparation: Sterile Prep Position: Supine Catheter: None Needle Types: Pajunk Needle Gauge: 21 Ultrasound used to visualize needle placement: Yes Ultrasound used to observe medication spread: Yes Injectate: 0.5% Ropivacaine (see comment for volume) ([id number]+Decadron 4mg--Each side) Blood Aspirated: No Pain Paresthesia on Injection Noted: No Resistance on Injection: Normal Image Stored and Saved: Yes Events: Uneventful and Well Tolerated
[2023-09-23] MEDS ORDERED: GLYCOPYRROLATE 0.2 MG/ML 2 ML VIAL ONE (07:31)
[2023-09-23] MEDS ORDERED: NEOSTIGMINE 1 MG/ML 10 ML VIAL ONE (07:31)
[2023-09-23] MEDS ORDERED: PROPOFOL 10 MG/ML 20 ML VIAL IV ONE (07:31)
[2023-09-23] MEDS ORDERED: KETAMINE HCL IN 0.9 % NACL 50 MG/5 ML SYRINGE ONE (07:31)
[2023-09-23] MEDS ORDERED: ROPIVACAINE 5 MG/ML 30 ML VIAL ONE (07:31)
[2023-09-23] MEDS ORDERED: KETOROLAC 15 MG/ML 1 ML VIAL ONE (07:31)
[2023-09-23] MEDS ORDERED: fentaNYL (PF) 50 MCG/ML 2 ML AMP ONE (07:31)
[2023-09-23] MEDS ORDERED: LIDOCAINE 1% INJ 10MG/ML (20 ML MDV) ONE (07:31)
[2023-09-23] MEDS ORDERED: SUCCINYLCHOLINE CHLORIDE 200 MG/10 ML VIAL IV ONE (07:31)
[2023-09-23] MEDS ORDERED: DEXAMETHASONE SOD PHOSPHATE 4 MG/ML 1 ML VIAL ONE (07:31)
[2023-09-23] MEDS ORDERED: ROCURONIUM 10 MG/ML (5 ML VIAL) IV ONE (07:31)
[2023-09-23] MEDS: LIDOCAINE 1%-EPI 1:100,000 20 ML VIAL SQ ONE (07:53)
[2023-09-23] MEDS: LACTATED RINGERS 1,000 ML IV ONE ×2 (08:21→10:03)
[2023-09-23] MEDS: HYDROmorphone 0.5 MG/0.5 ML SYRINGE IVP PRN (08:46)
--- NOTE | 2023-09-23 08:50 | P.OP ---
Date of Procedure: 09/23/23 Preoperative Diagnosis: Umbilical hernia Postoperative Diagnosis: Umbilical hernia Procedure(s) Performed: Laparoscopic robot-assisted pair umbilical hernia Transversus abdominis plane block Partial omentectomy Anesthesia: FRANCIS Surgeon: Abdi Hurley Estimated Blood Loss (ml): 5 Pathology: other (Omentum/hernia sac) Condition: stable Disposition: PACU Description of Procedure: The patient was placed on the operating table in the supine position. He received general anesthesia. His abdomen was prepped and draped usual fashion. Using a 5 mm optical trocar under direct visualization the peritoneal cavity was entered in the left upper quadrant. The abdomen was then insufflated. The laparoscope was placed back into the perineal cavity. Next a 8 mm robotic trocar was placed in the left lower quadrant and a 12 mm robotic trocar was placed in the left lateral position. The original 5 mm trocar was exchanged for a 8 mm robotic trocar. The patient's placed in the left side up position. And the patient was undocked the robot. The umbilical hernia was visualized. Using hook cautery the peritoneum over the umbilical hernia was excised. Karsh omentum was dissected free sent pathology. The fascial opening was repaired using 0V LOC suture. Next a piece of 11 cm round ventral light ST mesh was placed into the. Cavity and secured with 2 OV lock suture. The patient was undocked the robot. The needles were retrieved. A four- quadrant transversus abdominis plane block was performed with 1% local Xylocaine. The fascia of the 12 mm trocar site was closed with 0 Ethibond suture. Skin was closed interrupted 3-0 Monocryl suture. Dermabond dressings was applied. Patient top procedure well and was sent to recovery room stable condition.
[2023-09-23] MEDS: SIMETHICONE 80 MG CHEWABLE PO STA (10:12)
[2023-09-23] MEDS: SCOPOLAMINE 1 MG/72 HR PATCH TRANSDERM ONE (10:19)
[2023-09-23 10:50] VITALS: RESP 16
[2023-09-23] MEDS: ACETAMINOPHEN IV (For NPO) 1,000 MG in EMPTY BAG 1 BAG IVPB STA (12:27)
[2023-09-23] MEDS: METOCLOPRAMIDE 5 MG/ML 2 ML VIAL IVP STA (12:29)
[2023-09-23 13:12] VITALS: BP 105/69; PULSE 63
== END 2023-09-23 13:46 | disposition home or self-care (01) ==
LOC: OR 05:47
PROVIDERS: ATTEND Surgery
DX: J45.909 Unspecified asthma, uncomplicated (principal); E07.9 Disorder of thyroid, unspecified; F41.9 Anxiety disorder, unspecified; F31.9 Bipolar disorder, unspecified; M79.7 Fibromyalgia; F90.9 Attention-deficit hyperactivity disorder, unspecified type; F17.291 Nicotine dependence, other tobacco product, in remission; Z88.3 Allergy status to other anti-infective agents
CPT/HCPCS: 81025; 64488; 49591; C1781; J2250; J0330; J1644; J1100; J2710; J2765; J0690; J2405; J2001; J3010; J2795; J0131; J1885; J2704; J1170; J1596; 88302

== ENCOUNTER 2024-02-03 04:07 | Emergency (ER) | payer OTHER ==
[2024-02-03 05:30] LABS: Basophils % (A) 0 %; Eosinophils # (A) 0.3 k/uL (0-0.7); Eosinophils % (A) 2 %; HCT 37.5 % (34.0-46.0); HGB 12.3 gm/dL (11.4-16.0); Lymphocytes % (A) 27 %; MCH 28.3 pg (25.0-35.0); MCHC 32.9 g/dL (31.0-37.0); MCV 86.1 fL (80.0-100.0); Mean Platelet Volume 7.6; Monocytes # (A) 0.5 k/uL (0-1.0); Monocytes % (A) 5 %; Neutrophils % (A) 64 %; Platelet Count 272 k/uL (150-450); RBC 4.35 m/uL (3.80-5.40)
[2024-02-03 05:48] LABS: ALT 22 U/L (4-34); AST 19 U/L (14-36); African American GFR (CKD) >90 (>60 ml/min/1.73 sqM); Albumin 3.8 g/dL (3.5-5.0); Alkaline Phosphatase 57 U/L (38-126); Anion Gap 4 mmol/L; Blood Urea Nitrogen 9 mg/dL (7-17); Calcium 8.7 mg/dL (8.4-10.2); Carbon Dioxide 23 mmol/L (22-30); Chloride 110 mmol/L (98-107); Glucose 98 mg/dL (74-99); Lipase 38 U/L (23-300); Non-African American GFR(CKD) >90 (>60 ml/min/1.73 sqM); Potassium 4.3 mmol/L (3.5-5.1); Sodium 137 mmol/L (137-145); Total Bilirubin 1.1 mg/dL (0.2-1.3); Total Protein 6.8 g/dL (6.3-8.2)
[2024-02-03] MEDS: MORPHINE SULFATE 4 MG/ML SYRINGE IVP STA (06:00)
[2024-02-03 06:13] LABS: Appearance,Urine Clear (Clear); Bilirubin,Urine Negative (Negative); Blood,Urine Negative (Negative); Color,Urine Yellow; Glucose,Urine (UA) Negative (Negative); Ketones,Urine Negative (Negative); Leukocyte Esterase,Urine Negative (Negative); Nitrite,Urine Negative (Negative); Protein,Urine Trace (Negative); Specific Gravity,Urine 1.026 (1.001-1.035); Urobilinogen,Urine <2.0 mg/dL (<2.0)
--- NOTE | 2024-02-03 06:38 | XR ---
EXAMINATION TYPE: XR shoulder complete LT DATE OF EXAM: 02/03/2024 CLINICAL HISTORY: Pain after heavy lifting. TECHNIQUE: Three views of the left shoulder are obtained. COMPARISON: None. FINDINGS: There is no acute fracture/dislocation evident in the left shoulder. [id number] narr owing of the acromioclavicular joint. Glenohumeral joint is maintained. The visualized ribs are intac t . IMPRESSION: There is no acute fracture or dislocation in the left shoulder. [facility], , 02/03/2024 6:36 AM
--- NOTE | 2024-02-03 06:43 | CT ---
EXAMINATION TYPE: CT abdomen pelvis w con DATE OF EXAM: 02/03/2024 HISTORY: Pt to ED for evaluation of abdominal pain Left sided; and L shoulder pain, pt report she pic ked up a package last night around 70lb and felt like she tore pts Automated Exposure Control for Dose Reduction was Utilized. CONTRAST: CT scan of the abdomen and pelvis is performed with IV Contrast, patient injected with 100ML mL of Is ovue 300. COMPARISON: Prior CT August 11, 2023 FINDINGS: LUNG BASES: No significant abnormality is appreciated. LIVER/GB: Liver is diffusely low dense consistent with diffuse fatty infiltrative hepatocellular dise ase. PANCREAS: No significant abnormality is seen. SPLEEN: No significant abnormality is seen. ADRENALS: No significant abnormality is seen. KIDNEYS: Stable 4 mm nonobstructing right renal calculus axial image 37. Symmetric cortical medullary uptake and excretion without hydronephrosis seen bilaterally BOWEL: No significant abnormality is seen. UTERUS/ADNEXA: No gross abnormality seen. LYMPH NODES: No greater than 1cm abdominal or pelvic lymph nodes are appreciated. OSSEOUS STRUCTURES: No significant abnormality is seen. OTHER: No significant additional abnormality is seen. IMPRESSION: No significant new or acute finding is seen to account for patient's clinical symptoms. [facility], , 02/03/2024 6:40 AM
--- NOTE | 2024-02-03 07:21 | ED ---
Abdominal Pain HPI - General Chief Complaint: Abdominal Pain Stated Complaint: Left shoulder injury Source: patient Mode of arrival: ambulatory - History of Present Illness Initial Comments: 38-year-old female presents emergency department with left shoulder pain and periumbilical abdominal pain. States that she picked up a package last night that was around 70 pounds. She felt significant pain after she picked up the package. Thought that she injured her shoulder and possibly disrupted the mesh that she has in her abdomen. States that she had hernia surgery 1 year ago. She did not take anything for the pain. Denies any nausea or vomiting. No neck or back pain. No shortness of breath. No numbness, tingling or weakness in her extremities. She is right-hand dominant. No other alleviating, precipitating or modifying factors - Related Data Previous Rx's Medication Instructions Recorded Acetaminophen Tab [Tylenol] 650 mg PO Q6H #30 tab 09/23/23 Docusate [Colace] 100 mg PO BID #20 capsule 09/23/23 Ibuprofen [Motrin] 600 mg PO Q6HR PRN #40 tab 09/23/23 oxyCODONE HCL [OxyIR] 5 mg PO Q6H PRN 3 Days #10 tab 09/23/23 traMADol HCl [Ultram] 50 mg PO Q6H PRN #12 tab 02/03/24 Allergies Allergy/AdvReac Type Severity Reaction Status Date / Time hydrogen peroxide Allergy Rash/Hives Verified 02/03/24 04:13 Review of Systems ROS Statement: Those systems with pertinent positive or pertinent negative responses have been documented in the HPI. ROS Other: All systems not noted in ROS Statement are negative. Past Medical History Past Medical History: Asthma, Fibromyalgia, GERD/Reflux, Thyroid Disorder Additional Past Medical History / Comment(s): Seasonal allergies, sciatica, bulging discs in neck and lower back, tailbone fx at age 22, INCISIONAL HERNIA, ALSO HAS 7 KIDNEY STONES PRESENTLY History of Any Multi-Drug Resistant Organisms: None Reported Past Surgical History: Section Additional Past Surgical History / Comment(s): x3, Past Anesthesia/Blood Transfusion Reactions: Postoperative Nausea & Vomiting (PONV) Past Psychological History: ADD/ADHD, Anxiety, Bipolar, Depression, PTSD Smoking Status: Vaper, Former smoker Past Alcohol Use History: None Reported Past Drug Use History: Marijuana - Past Family History Mother History Unknown: Yes Family Medical History: Cancer Father Family Medical History: Diabetes Mellitus General Exam General appearance: alert, in no apparent distress Head exam: Present: atraumatic, normocephalic, normal inspection Eye exam: Present: normal appearance, PERRL, EOMI. Absent: scleral icterus, conjunctival injection, periorbital swelling ENT exam: Present: normal exam, mucous membranes moist Neck exam: Present: normal inspection. Absent: tenderness, meningismus, lymphadenopathy Respiratory exam: Present: normal lung sounds bilaterally. Absent: respiratory distress, wheezes, rales, rhonchi, stridor Cardiovascular Exam: Present: regular rate, normal rhythm, normal heart sounds. Absent: systolic murmur, diastolic murmur, rubs, gallop, clicks GI/Abdominal exam: Present: soft, tenderness (Periumbilical. No bulge), normal bowel sounds. Absent: distended, guarding, rebound, rigid Extremities exam: Present: normal inspection, full ROM, normal capillary refill. Absent: tenderness, pedal edema, joint swelling, calf tenderness Back exam: Present: normal inspection Neurological exam: Present: alert, oriented X3, CN II-XII intact Psychiatric exam: Present: normal affect, normal mood Skin exam: Present: warm, dry, intact, normal color. Absent: rash Course Vital Signs 02/03/24 02/03/24 02/03/24 04:08 05:59 07:30 Temperature 97.7 F 97.5 F L Pulse Rate 92 73 64 Respiratory 18 18 16 Rate Blood Pressure 131/76 120/71 127/84 O2 Sat by Pulse 98 99 97 Oximetry Medical Decision Making - Medical Decision Making Was pt. sent in by a medical professional or institution (, PA, SCREED PERSON, urgent care, hospital, or fci...) When possible be specific @ -No Did you speak to anyone other than the patient for history (EMS, parent, family, police, friend...)? What history was obtained from this source @ -No Did you review nursing and triage notes (agree or disagree)? Why? @ -I reviewed and agree with nursing and triage notes Were old charts reviewed (outside hosp., previous admission, EMS record, old EKG, old radiological studies, urgent care reports/EKG's, fci records)? Report findings @ -No old charts were reviewed Differential Diagnosis (chest pain, altered mental status, abdominal pain women, abdominal pain men, vaginal bleeding, weakness, fever, dyspnea, syncope, h eadache, dizziness, GI bleed, back pain, seizure, CVA, palpatations, mental health, musculoskeletal)? @ -Differential Abdominal Pain Women: Appendicitis, Cholecystitis, diverticulosis, ischemic bowel, pancreatitis, hepatitis, UTI, gastroenteritis, AAA, incarcerated hernia, bowel obstruction, constipation, inflammatory bowel, hepatitis, peptic ulcer disease, splenic infarction, perforated viscus, vulvitis, ovarian torsion, PID, kidney stone, placenta abruption, this is not meant to be an all-inclusive list Differential Musculoskeletal Muscular strain, contusion, ligament sprain, fracture, arthritis, septic arthritis, bursitis, cellulitis, muscle spasm, nerve compression, DVT, arterial occlusion, herpes zoster, electrolyte abnormality, tumor.... This is not meant to be in all inclusive list EKG interpreted by me (3pts min.). @ -Not done X-rays interpreted by me (1pt min.). @ -Yes and demonstrates no acute process CT interpreted by me (1pt min.). @ -Yes and demonstrates no acute process U/S interpreted by me (1pt. min.). @ -None done What testing was considered but not performed or refused? (CT, X-rays, U/S, labs)? Why? @ -None What meds were considered but not given or refused? Why? @ -None Did you discuss the management of the patient with other professionals (professionals i.e. , PA, SCREED PERSON, lab, RT, psych nurse, social insurance administrator, reweaver, teacher, executive officer special warfare team, case managers)? Give summary @ -No Was smoking cessation discussed for >3mins.? @ -No Was critical care preformed (if so, how long)? @ -No Were there social determinants of health that impacted care today? How? (Homelessness, low income, unemployed, alcoholism, drug addiction, transportation, low edu. Level, literacy, decrease access to med. care, [facility], rehab)? @ -No Was there de-escalation of care discussed even if they declined (Discuss DNR or withdrawal of care, Hospice)? DNR status @ -No What co-morbidities impacted this encounter? (DM, HTN, Smoking, COPD, CAD, Cancer, CVA, ARF, Chemo, Hep., AIDS, mental health diagnosis, sleep apnea, morbid obesity)? @ -Hernia repair Was patient admitted / discharged? Hospital course, mention meds given and route, prescriptions, significant lab abnormalities, going to OR and other pertinent info. @ -Upon arrival patient seen and evaluated in room 25. Thorough history and physical exam was performed. IV access was established. Patient was administe red pain medications. Shoulder x-ray and CT of the abdomen pelvis were performed. Results are discussed with patient. Patient is placed in a sling. She is instructed to not do any heavy lifting or bending. She is to follow-up with her doctor in 2 to 4 days. Return for any new or worsening symptoms. Patient is able to plan was discharged home in stable condition Undiagnosed new problem with uncertain prognosis? @ -No Drug Therapy requiring intensive monitoring for toxicity (Heparin, Nitro, Insulin, Cardizem)? @ -No Were any procedures done? @ -No Diagnosis/symptom? @ -Acute lifting injury, acute left shoulder pain, acute abdominal pain Acute, or Chronic, or Acute on Chronic? @ -Acute Uncomplicated (without systemic symptoms) or Complicated (systemic symptoms)? @ -Complicated Side effects of treatment? @ -No Exacerbation, Progression, or Severe Exacerbation? @ -No Poses a threat to life or bodily function? How? (Chest pain, USA, MD, pneumonia, PE, COPD, DKA, ARF, appy, cholecystitis, CVA, Diverticulitis, Homicidal, Suicidal, threat to staff... and all critical care pts) @ -No - Lab Data Result diagrams: 02/03/24 05:18 02/03/24 05:18 Lab Results 02/03/24 02/03/24 02/03/24 Range/Units 05:18 05:18 05:18 WBC 11.0 H (3.8-10.6) k/uL RBC 4.35 (3.80-5.40) m/uL Hgb 12.3 (11.4-16.0) gm/dL Hct 37.5 (34.0-46.0) % MCV 86.1 (80.0-100.0) fL MCH 28.3 (25.0-35.0) pg MCHC 32.9 (31.0-37.0) g/dL RDW 13.0 (11.5-15.5) % Plt Count 272 (150-450) k/uL MPV 7.6 Neutrophils % 64 % Lymphocytes % 27 % Monocytes % 5 % Eosinophils % 2 % Basophils % 0 % Neutrophils # 7.0 (1.3-7.7) k/uL Lymphocytes # 3.0 (1.0-4.8) k/uL Monocytes # 0.5 (0-1.0) k/uL Eosinophils # 0.3 (0-0.7) k/uL Basophils # 0.0 (0-0.2) k/uL Sodium 137 (137-145) mmol/L Potassium 4.3 (3.5-5.1) mmol/L Chloride 110 H (98-107) mmol/L Carbon Dioxide 23 (22-30) mmol/L Anion Gap 4 mmol/L BUN 9 (7-17) mg/dL Creatinine 0.61 (0.52-1.04) mg/dL Est GFR (CKD-EPI)AfAm >90 (>60 ml/min/1.73 sqM) Est GFR (CKD-EPI)NonAf >90 (>60 ml/min/1.73 sqM) Glucose 98 (74-99) mg/dL Plasma Lactic Acid Alonzo 0.6 L (0.7-2.0) mmol/L Calcium 8.7 (8.4-10.2) mg/dL Total Bilirubin 1.1 (0.2-1.3) mg/dL AST 19 (14-36) U/L ALT 22 (4-34) U/L Alkaline Phosphatase 57 (38-126) U/L Total Protein 6.8 (6.3-8.2) g/dL Albumin 3.8 (3.5-5.0) g/dL Lipase 38 (23-300) U/L Urine Color Urine Appearance (Clear) Urine pH (5.0-8.0) Ur Specific [place] (1.001-1.035) Urine Protein (Negative) Urine Glucose (UA) (Negative) Urine Ketones (Negative) Urine Blood (Negative) Urine Nitrite (Negative) Urine Bilirubin (Negative) Urine Urobilinogen (<2.0) mg/dL Ur Leukocyte Esterase (Negative) Urine HCG, Qual (Not Detectd) 02/03/24 02/03/24 Range/Units 06:05 06:05 WBC (3.8-10.6) k/uL RBC (3.80-5.40) m/uL Hgb (11.4-16.0) gm/dL Hct (34.0-46.0) % MCV (80.0-100.0) fL MCH (25.0-35.0) pg MCHC (31.0-37.0) g/dL RDW (11.5-15.5) % Plt Count (150-450) k/uL MPV Neutrophils % % Lymphocytes % % Monocytes % % Eosinophils % % Basophils % % Neutrophils # (1.3-7.7) k/uL Lymphocytes # (1.0-4.8) k/uL Monocytes # (0-1.0) k/uL Eosinophils # (0-0.7) k/uL Basophils # (0-0.2) k/uL Sodium (137-145) mmol/L Potassium (3.5-5.1) mmol/L Chloride (98-107) mmol/L Carbon Dioxide (22-30) mmol/L Anion Gap mmol/L BUN (7-17) mg/dL Creatinine (0.52-1.04) mg/dL Est GFR (CKD-EPI)AfAm (>60 ml/min/1.73 sqM) Est GFR (CKD-EPI)NonAf (>60 ml/min/1.73 sqM) Glucose (74-99) mg/dL Plasma Lactic Acid Alonzo (0.7-2.0) mmol/L Calcium (8.4-10.2) mg/dL Total Bilirubin (0.2-1.3) mg/dL AST (14-36) U/L ALT (4-34) U/L Alkaline Phosphatase (38-126) U/L Total Protein (6.3-8.2) g/dL Albumin (3.5-5.0) g/dL Lipase (23-300) U/L Urine Color Yellow Urine Appearance Clear (Clear) Urine pH 6.0 (5.0-8.0) Ur Specific [place] 1.026 (1.001-1.035) Urine Protein Trace H (Negative) Urine Glucose (UA) Negative (Negative) Urine Ketones Negative (Negative) Urine Blood Negative (Negative) Urine Nitrite Negative (Negative) Urine Bilirubin Negative (Negative) Urine Urobilinogen <2.0 (<2.0) mg/dL Ur Leukocyte Esterase Negative (Negative) Urine HCG, Qual Not Detected (Not Detectd) Disposition Clinical Impression: Left shoulder pain, Abdominal pain Disposition: HOME SELF-CARE Condition: Stable Instructions (If sedation given, give patient instructions): Abdominal Pain (ED), Shoulder Pain (ED) Additional Instructions: Please take the pain medications as instructed. Wear the sling for comfort. Follow-up with your primary care doctor in 2 to 4 days. They may need to do further imaging if your pain persist. Return for any new or worsening symptoms Prescriptions: traMADol HCl [Ultram] 50 mg PO Q6H PRN #12 tab PRN Reason: Pain Is patient prescribed a controlled substance at d/c from ED?: Yes When asked, does pt state using other controlled substances?: No If prescribed controlled substance>3 days was MAPS reviewed?: Prescribed <3 Days If opioid is for acute pain is fill amount 7 days or less?: Yes Referrals: Maximilian Greene MD [Primary Care Provider] - 1-2 days Олег Hallman MD [STAFF PHYSICIAN] - 1-2 days Time of Disposition: 07:21
[2024-02-03 07:34] VITALS: BP 127/84; PULSE 64; RESP 16; TEMP 97.5
== END 2024-02-03 07:39 | disposition home or self-care (01) ==
LOC: EC 04:07
DX: S49.92XA Unspecified injury of left shoulder and upper arm, initial encounter (principal); R10.33 Periumbilical pain; F17.290 Nicotine dependence, other tobacco product, uncomplicated; Z88.3 Allergy status to other anti-infective agents; X50.1XXA Overexertion from prolonged static or awkward postures, initial encounter
CPT/HCPCS: 36415; 80053; 83605; 83690; 85025; 81003; 81025; 73030; 74177; 99284; 96374; J2270; Q9967

== ENCOUNTER → 2024-03-26 | Outpatient (CLI) | payer OTHER ==
[2024-03-27 09:26] LABS: Thyroid Peroxidase Antibodies 14.2 U/mL (0.0-33.0)
[2024-03-27 11:19] LABS: Chol/HDL Ratio 6.55 Ratio; LDL Cholesterol,Calculated 162.3 mg/dL (0.0-131.0); VLDL Calculation 19.88 mg/dL (5.00-40.00)
== END | disposition home or self-care (01) ==
LOC: LABWHC1 10:52
PROVIDERS: ATTEND Family Medicine
DX: Z13.228 Encounter for screening for other metabolic disorders (principal)
CPT/HCPCS: 36415; 80061; 83036; 84432; 84443; 86376

== ENCOUNTER 2024-07-04 13:03 | Emergency (ER) | payer OTHER ==
[2024-07-04 13:07] VITALS: TEMP 97.6
[2024-07-04] MEDS: KETOROLAC 15 MG/ML 1 ML VIAL IVP STA (13:45)
[2024-07-04] MEDS: SODIUM CHLORIDE 0.9% 1,000 ML IV SCH (13:45)
--- NOTE | 2024-07-04 13:45 | ED ---
Abdominal Pain HPI - General Chief Complaint: Abdominal Pain Stated Complaint: R sided flank Time Seen by Provider: 07/04/24 13:16 Source: patient, RN notes reviewed Mode of arrival: ambulatory Limitations: no limitations - History of Present Illness Initial Comments: 38-year-old female presents emergency department complaint of right flank pain. Patient states has been ongoing on and off for several months she was recent diagnosed with a kidney stone states pain worsened this morning in which she states she took her home medications without relief. Patient notes nausea no significant vomiting no dysuria no hematuria she states she has had no prior abdominal surgeries no prior gallbladder issues. No fevers or chills no chest pain or shortness of breath - Related Data Previous Rx's Medication Instructions Recorded Acetaminophen Tab [Tylenol] 650 mg PO Q6H #30 tab 09/23/23 Docusate [Colace] 100 mg PO BID #20 capsule 09/23/23 Ibuprofen [Motrin] 600 mg PO Q6HR PRN #40 tab 09/23/23 oxyCODONE HCL [OxyIR] 5 mg PO Q6H PRN 3 Days #10 tab 09/23/23 traMADol HCl [Ultram] 50 mg PO Q6H PRN #12 tab 02/03/24 Allergies Allergy/AdvReac Type Severity Reaction Status Date / Time hydrogen peroxide Allergy Rash/Hives Verified 07/04/24 13:07 Review of Systems ROS Statement: Those systems with pertinent positive or pertinent negative responses have been documented in the HPI. ROS Other: All systems not noted in ROS Statement are negative. Past Medical History Past Medical History: Asthma, Fibromyalgia, GERD/Reflux, Thyroid Disorder Additional Past Medical History / Comment(s): Seasonal allergies, sciatica, bulging discs in neck and lower back, tailbone fx at age 22, INCISIONAL HERNIA, ALSO HAS 7 KIDNEY STONES PRESENTLY History of Any Multi-Drug Resistant Organisms: None Reported Past Surgical History: Section Additional Past Surgical History / Comment(s): x3, Past Anesthesia/Blood Transfusion Reactions: Postoperative Nausea & Vomiting (PONV) Past Psychological History: ADD/ADHD, Anxiety, Bipolar, Depression, PTSD Smoking Status: Vaper, Former smoker Past Alcohol Use History: None Reported Past Drug Use History: Marijuana - Past Family History Mother History Unknown: Yes Family Medical History: Cancer Father Family Medical History: Diabetes Mellitus General Exam Limitations: no limitations General appearance: alert, in no apparent distress Head exam: Present: atraumatic, normocephalic, normal inspection Eye exam: Present: normal appearance, PERRL, EOMI. Absent: scleral icterus, conjunctival injection, periorbital swelling Respiratory exam: Present: normal lung sounds bilaterally. Absent: respiratory distress, wheezes, rales, rhonchi, stridor Cardiovascular Exam: Present: regular rate, normal rhythm, normal heart sounds. Absent: systolic murmur, diastolic murmur, rubs, gallop, clicks GI/Abdominal exam: Present: soft, tenderness, normal bowel sounds. Absent: distended, guarding, rebound, rigid Back exam: Present: CVA tenderness (R). Absent: CVA tenderness (L) Neurological exam: Present: alert Course Vital Signs 07/04/24 07/04/24 13:05 14:44 Temperature 97.6 F Pulse Rate 85 76 Respiratory 17 18 Rate Blood Pressure 118/76 112/75 O2 Sat by Pulse 98 96 Oximetry Medical Decision Making - Medical Decision Making Was pt. sent in by a medical professional or institution (, PA, ASSEMBLER [employer], urgent care, hospital, or usp...) When possible be specific @ -No Did you speak to anyone other than the patient for history (EMS, parent, family, police, friend...)? What history was obtained from this source @ -No Did you review nursing and triage notes (agree or disagree)? Why? @ -I reviewed and agree with nursing and triage notes Were old charts reviewed (outside hosp., previous admission, EMS record, old EKG, old radiological studies, urgent care reports/EKG's, usp records)? Report findings @ -No old charts were reviewed Differential Diagnosis (chest pain, altered mental status, abdominal pain women, abdominal pain men, vaginal bleeding, weakness, fever, dyspnea, syncope, headache, dizziness, GI bleed, back pain, seizure, CVA, palpatations, mental health, musculoskeletal)? @ -Differential Abdominal Pain Women: Appendicitis, Cholecystitis, diverticulosis, ischemic bowel, pancreatitis, hepatitis, UTI, gastroenteritis, AAA, incarcerated hernia, bowel obstruction, constipation, inflammatory bowel, hepatitis, peptic ulcer disease, splenic infarction, perforated viscus, vulvitis, ovarian torsion, PID, kidney stone, placenta abruption, this is not meant to be an all-inclusive list EKG interpreted by me (3pts min.). @ -None X-rays interpreted by me (1pt min.). @ -None done CT interpreted by me (1pt min.). @ -None done U/S interpreted by me (1pt. min.). @ -[Ultrasound right upper quadrant showing enlarged liver, fatty liver disease, stone within the kidney without hydronephrosis What testing was considered but not performed or refused? (CT, X-rays, U/S, labs)? Why? @ -None What meds were considered but not given or refused? Why? @ -None Did you discuss the management of the patient with other professionals (professionals i.e. , PA, ASSEMBLER [employer], lab, RT, psych nurse, social director, bit sharpener, teacher, control officer manager, case coordinator)? Give summary @ -No Was smoking cessation discussed for >3mins.? @ -No Was critical care preformed (if so, how long)? @ -No Were there social determinants of health that impacted care today? How? (Homelessness, low income, unemployed, alcoholism, drug addiction, transportation, low edu. Level, literacy, decrease access to med. care, penitentiary, rehab)? @ -No Was there de-escalation of care discussed even if they declined (Discuss DNR or withdrawal of care, Hospice)? DNR status @ -No What co-morbidities impacted this encounter? (DM, HTN, Smoking, COPD, CAD, Cancer, CVA, ARF, Chemo, Hep., AIDS, mental health diagnosis, sleep apnea, morbid obesity)? @ -None Was patient admitted / discharged? Hospital course, mention meds given and route, prescriptions, significant lab abnormalities, going to OR and other pertinent info. @ -Discharged patient has no acute findings to cause right side abdominal pain. Patient said chronic issues with this will follow-up with surgeon, GI as needed and PCP return parameters discussed Undiagnosed new problem with uncertain prognosis? @ -No Drug Therapy requiring intensive monitoring for toxicity (Heparin, Nitro, Insulin, Cardizem)? @ -No Were any procedures done? @ -No Diagnosis/symptom? @ -Abdominal pain Acute, or Chronic, or Acute on Chronic? @ -Acute Uncomplicated (without systemic symptoms) or Complicated (systemic symptoms)? @ -uncomplicated Side effects of treatment? @ -No Exacerbation, Progression, or Severe Exacerbation? @ -No Poses a threat to life or bodily function? How? (Chest pain, USA, MD, pneumonia, PE, COPD, DKA, ARF, appy, cholecystitis, CVA, Diverticulitis, Homicidal, Suicidal, threat to staff... and all critical care pts) @ -No - Lab Data Result diagrams: 07/04/24 13:43 07/04/24 13:43 Lab Results 07/04/24 07/04/24 Range/Units 13:43 13:43 WBC 10.27 H (4.50-10.00) 10*3/uL RBC 4.13 (4.10-5.20) 10*6/uL Hgb 11.7 L (12.0-15.0) g/dL Hct 35.4 L (37.2-46.3) % MCV 85.7 (80.0-97.0) fL MCH 28.3 (27.0-32.0) pg MCHC 33.1 (32.0-37.0) g/dL Plt Count 290 (140-440) 10*3/uL MPV 10.6 (9.5-12.2) fL Immature Gran % (Auto) 0.4 % Neutrophils % 58.0 % Lymphocytes % 31.9 % Monocytes % 7.7 % Eosinophils % 1.8 % Basophils % 0.2 % Immature Gran # 0.04 (0.00-0.04) 10*3/uL Neutrophils # 5.96 (1.80-7.70) 10*3/uL Lymphocytes # 3.28 (0.90-5.00) 10*3/uL Monocytes # 0.79 (0.20-1.00) 10*3/uL Eosinophils # 0.18 (0.04-0.35) 10*3/uL Basophils # 0.02 (0.00-0.10) 10*3/uL Sodium 136 L (137-145) mmol/L Potassium 4.5 (3.5-5.1) mmol/L Chloride 101 (98-107) mmol/L Carbon Dioxide 29 (22-30) mmol/L Anion Gap 6 mmol/L BUN 9 (7-17) mg/dL Creatinine 0.53 (0.52-1.04) mg/dL Est GFR (CKD-EPI)AfAm >90 (>60 ml/min/1.73 sqM) Est GFR (CKD-EPI)NonAf >90 (>60 ml/min/1.73 sqM) Glucose 87 (74-99) mg/dL Calcium 9.4 (8.4-10.2) mg/dL Total Bilirubin 0.3 (0.2-1.3) mg/dL AST 16 (14-36) U/L ALT 16 (4-34) U/L Alkaline Phosphatase 67 (38-126) U/L Total Protein 6.5 (6.3-8.2) g/dL Albumin 3.5 (3.5-5.0) g/dL Lipase 40 (23-300) U/L Disposition Clinical Impression: Abdominal pain Disposition: HOME SELF-CARE Condition: Stable Instructions (If sedation given, give patient instructions): Abdominal Pain (ED) Additional Instructions: Please return to the Emergency Department if symptoms worsen or any other concerns. Is patient prescribed a controlled substance at d/c from ED?: No Referrals: Maximilian Greene MD [Primary Care Provider] - 1-2 days Abdi Hurley MD [STAFF PHYSICIAN] - 1-2 days Carolann Lucero MD [STAFF PHYSICIAN] - 1-2 days Time of Disposition: 14:47
[2024-07-04] MEDS: ONDANSETRON 4 MG/2 ML VIAL IVP STA (13:46)
[2024-07-04] MEDS: HYDROmorphone 0.5 MG/0.5 ML SYRINGE IVP STA (13:48)
[2024-07-04 14:07] LABS: ALT 16 U/L (4-34); AST 16 U/L (14-36); African American GFR (CKD) >90 (>60 ml/min/1.73 sqM); Albumin 3.5 g/dL (3.5-5.0); Alkaline Phosphatase 67 U/L (38-126); Anion Gap 6 mmol/L; Blood Urea Nitrogen 9 mg/dL (7-17); Calcium 9.4 mg/dL (8.4-10.2); Carbon Dioxide 29 mmol/L (22-30); Chloride 101 mmol/L (98-107); Glucose 87 mg/dL (74-99); Lipase 40 U/L (23-300); Non-African American GFR(CKD) >90 (>60 ml/min/1.73 sqM); Potassium 4.5 mmol/L (3.5-5.1); Sodium 136 mmol/L (137-145); Total Bilirubin 0.3 mg/dL (0.2-1.3); Total Protein 6.5 g/dL (6.3-8.2)
[2024-07-04 14:10] LABS: Basophils # (A) 0.02 10*3/uL (0.00-0.10); Basophils % (A) 0.2 %; Eosinophils # (A) 0.18 10*3/uL (0.04-0.35); Eosinophils % (A) 1.8 %; HCT 35.4 % (37.2-46.3); HGB 11.7 g/dL (12.0-15.0); Lymphocytes # (A) 3.28 10*3/uL (0.90-5.00); Lymphocytes % (A) 31.9 %; MCH 28.3 pg (27.0-32.0); MCHC 33.1 g/dL (32.0-37.0); MCV 85.7 fL (80.0-97.0); Mean Platelet Volume 10.6 fL (9.5-12.2); Monocytes # (A) 0.79 10*3/uL (0.20-1.00); Monocytes % (A) 7.7 %; Neutrophils # (A) 5.96 10*3/uL (1.80-7.70); Platelet Count 290 10*3/uL (140-440); RBC 4.13 10*6/uL (4.10-5.20); RDW 13.3 % (11.5-14.5); WBC 10.27 10*3/uL (4.50-10.00)
--- NOTE | 2024-07-04 14:36 | US ---
EXAMINATION TYPE: US abdomen limited DATE OF EXAM: 07/04/2024 COMPARISON: CT(02/03/2024) CLINICAL INDICATION: Female, 38 years old with history of pain right flank/abd; pt states she has kno wn rt kidney stone since january, recent rt sided severe pain x 1 day, difficulty urinating TECHNIQUE: Grayscale and color Doppler imaging of the right upper quadrant. FINDINGS: EXAM MEASUREMENTS: Liver Length: 20.6 cm Gallbladder Wall: 0.2 cm CBD: 0.4 cm, color Doppler imaging was utilized to isolate the common bile duct for measurement. Right Kidney: 12.3x4.6x5.6 cm TRAINING AND QUALITY MANAGER NOTES: limited scan due to pt body habitus & overlying bowel Pancreas: Obscured by bowel gas Liver: Increased attenuation, decreased visualization of vessels suggestive of fatty infiltrate, dif ficult to penetrate, Enlarged Gallbladder: No stones seen Evidence for sonographic Contreras's sign: No CBD: slightly obscured, wnl as best visualized Right Kidney: ?echogenic foci seen: 0.8cm prior CT 02/03/2024 measurements: 4mm. No hydronephrosis. IMPRESSION: 1. Hepatomegaly at 20.6 cm with [id number] hepatic steatosis. 2. No gallstones or biliary ductal dilatation. 3. An 8 mm right-sided renal stone. No hydronephrosis. [facility], , 07/04/2024 2:34 PM
[2024-07-04 14:45] VITALS: BP 112/75; PULSE 76; RESP 18
== END 2024-07-04 15:16 | disposition home or self-care (01) ==
LOC: EC 13:03
DX: N20.0 Calculus of kidney (principal); F17.290 Nicotine dependence, other tobacco product, uncomplicated; Z88.8 Allergy status to other drugs, medicaments and biological substances
CPT/HCPCS: 36415; 80053; 83690; 85025; 76705; 99284; 96374; 96375 ×2; 96361; J2405; J1885; J1171

== ENCOUNTER 2024-08-23 10:43 | Emergency (ER) | payer OTHER ==
--- NOTE | 2024-08-23 11:04 | ED ---
Abdominal Pain HPI - General Source: patient, RN notes reviewed Mode of arrival: ambulatory Limitations: no limitations <Elissa Massey - Last Filed: 08/23/24 11:03> <Noah Edward - Last Filed: 08/23/24 19:08> - General Stated Complaint: Abd pain, blood in stool Time Seen by Provider: 08/23/24 11:03 - History of Present Illness Initial Comments: Quick note: 38-year-old female presented to ER for evaluation of abdominal pain. Patient states over the past 2 weeks she has been noticing dark red blood in her stool. She states that she also was endorsing lower abdominal pain. She denies nausea, vomiting or fevers. Patient states upon waking this morning she was dizzy. No blood thinner use. (Elissa Massey) Dictation was produced using [employer] dictation software. please excuse any grammatical, word or spelling errors. Chief Complaint: 38-year-old female with bright blood per rectum and lower abdominal pain History of Present Illness: Patient 38-year-old female has 1 to 2 days of blood in her stool. States that it is dark and sometimes looks with bright red blood. Patient also complaining of lower pelvic pain had a history of colonoscopy with no acute findings. Denies any fever chills or night sweats. States that the pain is constant to her lower abdomen. Denies any rectal pain. The ROS documented in this emergency department record has been reviewed and confirmed by me. Those systems with pertinent positive or negative responses have been documented in the HPI. All other systems are other negative and/or noncontributory. (Noah Edward) - Related Data Home Medications Medication Instructions Recorded Confirmed No Known Home Medications 08/23/24 08/23/24 Allergies Allergy/AdvReac Type Severity Reaction Status Date / Time hydrogen peroxide Allergy Rash/Hives Verified 08/23/24 18:28 Review of Systems ROS Other: All systems not noted in ROS Statement are negative. <Elissa Massey - Last Filed: 08/23/24 11:03> ROS Other: All systems not noted in ROS Statement are negative. <Noah Edward - Last Filed: 08/23/24 19:08> ROS Statement: Those systems with pertinent positive or pertinent negative responses have been documented in the HPI. Past Medical History Past Medical History: Asthma, Fibromyalgia, GERD/Reflux, Thyroid Disorder Additional Past Medical History / Comment(s): Seasonal allergies, sciatica, bulging discs in neck and lower back, tailbone fx at age 22, INCISIONAL HERNIA, ALSO HAS 7 KIDNEY STONES PRESENTLY History of Any Multi-Drug Resistant Organisms: None Reported Past Surgical History: Section Additional Past Surgical History / Comment(s): x3, Past Anesthesia/Blood Transfusion Reactions: Postoperative Nausea & Vomiting (PONV) Past Psychological History: ADD/ADHD, Anxiety, Bipolar, Depression, PTSD Smoking Status: Vaper, Former smoker Past Alcohol Use History: None Reported Past Drug Use History: Marijuana - Past Family History Mother History Unknown: Yes Family Medical History: Cancer Father Family Medical History: Diabetes Mellitus <Elissa Massey - Last Filed: 08/23/24 11:03> General Exam <Elissa Massey - Last Filed: 08/23/24 11:03> <Noah Edward - Last Filed: 08/23/24 19:08> - General Exam Comments Initial Comments: Visual Physical Exam Vital signs reviewed General: Well-appearing, nontoxic, no acute distress. Head: Normocephalic, atraumatic Eyes: PERRLA, EOMI ENT: Airway patent Chest: Nonlabored breathing Skin: No visual rash, normal skin tone Neuro: Alert and oriented 3 Musculoskeletal: No gross abnormalities (Elissa Massey) PHYSICAL EXAM: General Impression: Alert and oriented x3, not in acute distress HEENT: Normocephalic atraumatic, extra-ocular movements intact, pupils equal and reactive to light bilaterally, mucous membranes moist. Cardiovascular: Heart regular rate and rhythm Chest: Able to complete full sentences, no retractions, no tachypnea Abdomen: abdomen soft, non-tender, non-distended, no organomegaly Musculoskeletal: Pulses present and equal in all extremities, no peripheral edema Motor: no focal deficits noted Neurological: CN II-XII grossly intact, no focal motor or sensory deficits noted Skin: Intact with no visualized rashes Psych: Normal affect and mood (Noah Edward) Course Vital Signs 08/23/24 08/23/24 08/23/24 11:46 17:52 18:26 Temperature 98.1 F 98.2 F Pulse Rate 77 71 78 Respiratory 18 16 18 Rate Blood Pressure 110/72 120/68 118/74 O2 Sat by Pulse 98 100 98 Oximetry Medical Decision Making <Elissa Massey - Last Filed: 08/23/24 11:03> - Lab Data Result diagrams: 08/23/24 13:33 08/23/24 13:33 <Noah Edward - Last Filed: 08/23/24 19:08> - Medical Decision Making I performed the quick note portion of this chart. Electronically signed by Elissa Massey PA-C (Elissa Massey) Was pt. sent in by a medical professional or institution ([facility], [facility], urgent care, hospital, or usp...) When possible be specific @ -No Did you speak to anyone other than the patient for history (EMS, parent, family, police, friend...)? What history was obtained from this source @ -No Did you review nursing and triage notes (agree or disagree)? Why? @ -I reviewed and agree with nursing and triage notes Were old charts reviewed (outside hosp., previous admission, EMS record, old EKG, old radiological studies, urgent care reports/EKG's, usp records)? Report findings @ -No old charts were reviewed Differential Diagnosis (chest pain, altered mental status, abdominal pain women, abdominal pain men, vaginal bleeding, musculoskeletal, weakness, fever, dyspnea, syncope, headache, dizziness, GI bleed, back pain, seizure, CVA, palpatations, mental health)? @ -Differential GI Bleed: Esophageal varices, aortoenteric fistula, Ilsa-Valderrama, gastritis, peptic ulcer disease, diverticulosis, inflammatory bowel disease, hemorrhoids, fissure, colitis, malignancy, Meckel's diverticulum, this is not meant to be an all- inclusive list. EKG interpreted by me (3pts min.). @ -None done X-rays interpreted by me (1pt min.). @ -None done CT interpreted by me (1pt min.). @ -CT ab pelvis shows no acute processes U/S interpreted by me (1pt. min.). @ -None done What testing was considered but not performed or refused? (CT, X-rays, U/S, labs)? Why? @ -None What meds were considered but not given or refused? Why? @ -None Was smoking cessation discussed for >3mins.? @ -No Were there social determinants of health that impacted care today? How? (Homelessness, low income, unemployed, alcoholism, drug addiction, transportation, low edu. Level, literacy, decrease access to med. care, longterm, rehab)? @ -No Was there de-escalation of care discussed even if they declined (Discuss DNR or withdrawal of care, Hospice)? DNR status @ -No What co-morbidities impacted this encounter? (DM, HTN, Smoking, COPD, CAD, Cancer, CVA, ARF, Chemo, Hep., AIDS, mental health diagnosis, sleep apnea, morbid obesity)? @ -None Was patient admitted / discharged? Hospital course, mention meds given and route, prescriptions, significant lab abnormalities, going to OR and other pertinent info. @ -38-year-old female with no known major comorbidities not on anticoagulation medication presents with GI bleed. Patient complains of lower abdominal pain. Vital signs stable. Laboratory evaluations unremarkable. No anemia. CT negative. Patient discharged with referral to GI. Return precautions discussed. Did you discuss the management of the patient with other professionals (professionals i.e. , PA, [facility], lab, RT, psych nurse, certified social workers in health care, yarder engineer, teacher, staff combat information center officer, manager of case)? Give summary @ -No Was critical care preformed (if so, how long)? @ -No Undiagnosed new problem with uncertain prognosis? @ -No Drug Therapy requiring intensive monitoring for toxicity (Heparin, Nitro, Insulin, Cardizem)? @ -No Were any procedures done? @ -No Diagnosis/symptom? Acute, or Chronic, or Acute on Chronic? Uncomplicated (without systemic symptoms) or Complicated (systemic symptoms)? @ -GI bleed Side effects of treatment? @ -No Exacerbation, Progression, or Severe Exacerbation? @ -No Poses a threat to life or bodily function? How? (Chest pain, [place], [place], pneumonia, PE, COPD, DKA, ARF, appy, cholecystitis, CVA, Diverticulitis, Homicidal, Suicidal, threat to staff... and all critical care pts) @ -No (Noah Edward) - Lab Data Lab Results 06/24/25 06/24/25 06/24/25 Range/Units 13:33 13:33 13:33 WBC 11.60 H (4.50-10.00) 10*3/uL RBC 4.44 (4.10-5.20) 10*6/uL Hgb 12.3 (12.0-15.0) g/dL Hct 37.6 (37.2-46.3) % MCV 84.7 (80.0-97.0) fL MCH 27.7 (27.0-32.0) pg MCHC 32.7 (32.0-37.0) g/dL Plt Count 341 (140-440) 10*3/uL MPV 10.4 (9.5-12.2) fL Immature Gran % (Auto) 0.4 % Neutrophils % 65.8 % Lymphocytes % 26.6 % Monocytes % 5.6 % Eosinophils % 1.4 % Basophils % 0.2 % Immature Gran # 0.05 H (0.00-0.04) 10*3/uL Neutrophils # 7.64 (1.80-7.70) 10*3/uL Lymphocytes # 3.08 (0.90-5.00) 10*3/uL Monocytes # 0.65 (0.20-1.00) 10*3/uL Eosinophils # 0.16 (0.04-0.35) 10*3/uL Basophils # 0.02 (0.00-0.10) 10*3/uL Sodium 138 (137-145) mmol/L Potassium 3.9 (3.5-5.1) mmol/L Chloride 104 (98-107) mmol/L Carbon Dioxide 27 (22-30) mmol/L Anion Gap 7 mmol/L BUN 9 (7-17) mg/dL Creatinine 0.54 (0.52-1.04) mg/dL Est GFR (CKD-EPI)AfAm >90 (>60 ml/min/1.73 sqM) Est GFR (CKD-EPI)NonAf >90 (>60 ml/min/1.73 sqM) Glucose 78 (74-99) mg/dL Plasma Lactic Acid Alonzo 1.6 (0.7-2.0) mmol/L Calcium 9.2 (8.4-10.2) mg/dL Total Bilirubin 0.5 (0.2-1.3) mg/dL AST 16 (14-36) U/L ALT 14 (4-34) U/L Alkaline Phosphatase 75 (38-126) U/L Total Protein 7.0 (6.3-8.2) g/dL Albumin 3.9 (3.5-5.0) g/dL Amylase 48 (30-110) U/L Lipase 48 (23-300) U/L Urine Color Urine Appearance (Clear) Urine pH (5.0-8.0) Ur Specific [place] (1.001-1.035) Urine Protein (Negative) Urine Glucose (UA) (Negative) Urine Ketones (Negative) Urine Blood (Negative) Urine Nitrite (Negative) Urine Bilirubin (Negative) Urine Urobilinogen (<2.0) mg/dL Ur Leukocyte Esterase (Negative) Urine HCG, Qual (Not Detectd) 08/23/24 08/23/24 Range/Units 13:40 13:40 WBC (4.50-10.00) 10*3/uL RBC (4.10-5.20) 10*6/uL Hgb (12.0-15.0) g/dL Hct (37.2-46.3) % MCV (80.0-97.0) fL MCH (27.0-32.0) pg MCHC (32.0-37.0) g/dL Plt Count (140-440) 10*3/uL MPV (9.5-12.2) fL Immature Gran % (Auto) % Neutrophils % % Lymphocytes % % Monocytes % % Eosinophils % % Basophils % % Immature Gran # (0.00-0.04) 10*3/uL Neutrophils # (1.80-7.70) 10*3/uL Lymphocytes # (0.90-5.00) 10*3/uL Monocytes # (0.20-1.00) 10*3/uL Eosinophils # (0.04-0.35) 10*3/uL Basophils # (0.00-0.10) 10*3/uL Sodium (137-145) mmol/L Potassium (3.5-5.1) mmol/L Chloride (98-107) mmol/L Carbon Dioxide (22-30) mmol/L Anion Gap mmol/L BUN (7-17) mg/dL Creatinine (0.52-1.04) mg/dL Est GFR (CKD-EPI)AfAm (>60 ml/min/1.73 sqM) Est GFR (CKD-EPI)NonAf (>60 ml/min/1.73 sqM) Glucose (74-99) mg/dL Plasma Lactic Acid Alonzo (0.7-2.0) mmol/L Calcium (8.4-10.2) mg/dL Total Bilirubin (0.2-1.3) mg/dL AST (14-36) U/L ALT (4-34) U/L Alkaline Phosphatase (38-126) U/L Total Protein (6.3-8.2) g/dL Albumin (3.5-5.0) g/dL Amylase (30-110) U/L Lipase (23-300) U/L Urine Color Colorless Urine Appearance Clear (Clear) Urine pH 6.5 (5.0-8.0) Ur Specific [place] 1.003 (1.001-1.035) Urine Protein Negative (Negative) Urine Glucose (UA) Negative (Negative) Urine Ketones Negative (Negative) Urine Blood Negative (Negative) Urine Nitrite Negative (Negative) Urine Bilirubin Negative (Negative) Urine Urobilinogen <2.0 (<2.0) mg/dL Ur Leukocyte Esterase Negative (Negative) Urine HCG, Qual Not Detected (Not Detectd) Disposition <Elissa Massey - Last Filed: 08/23/24 11:03> Is patient prescribed a controlled substance at d/c from ED?: No <Noah Edward - Last Filed: 08/23/24 19:08> Clinical Impression: GI bleed Disposition: HOME SELF-CARE Condition: Fair Instructions (If sedation given, give patient instructions): Gastrointestinal Bleeding (ED) Referrals: Carolann Lucero MD [STAFF PHYSICIAN] - 1-2 days
[2024-08-23 13:49] LABS: Basophils # (A) 0.02 10*3/uL (0.00-0.10); Basophils % (A) 0.2 %; Eosinophils # (A) 0.16 10*3/uL (0.04-0.35); Eosinophils % (A) 1.4 %; HCT 37.6 % (37.2-46.3); HGB 12.3 g/dL (12.0-15.0); Lymphocytes # (A) 3.08 10*3/uL (0.90-5.00); Lymphocytes % (A) 26.6 %; MCH 27.7 pg (27.0-32.0); MCHC 32.7 g/dL (32.0-37.0); MCV 84.7 fL (80.0-97.0); Mean Platelet Volume 10.4 fL (9.5-12.2); Monocytes # (A) 0.65 10*3/uL (0.20-1.00); Monocytes % (A) 5.6 %; Neutrophils # (A) 7.64 10*3/uL (1.80-7.70); Neutrophils % (A) 65.8 %; Platelet Count 341 10*3/uL (140-440); RBC 4.44 10*6/uL (4.10-5.20); RDW 13.2 % (11.5-14.5)
[2024-08-23 14:06] LABS: ALT 14 U/L (4-34); AST 16 U/L (14-36); African American GFR (CKD) >90 (>60 ml/min/1.73 sqM); Albumin 3.9 g/dL (3.5-5.0); Alkaline Phosphatase 75 U/L (38-126); Amylase 48 U/L (30-110); Anion Gap 7 mmol/L; Blood Urea Nitrogen 9 mg/dL (7-17); Calcium 9.2 mg/dL (8.4-10.2); Carbon Dioxide 27 mmol/L (22-30); Chloride 104 mmol/L (98-107); Glucose 78 mg/dL (74-99); Lipase 48 U/L (23-300); Non-African American GFR(CKD) >90 (>60 ml/min/1.73 sqM); Potassium 3.9 mmol/L (3.5-5.1); Sodium 138 mmol/L (137-145); Total Bilirubin 0.5 mg/dL (0.2-1.3)
[2024-08-23 14:10] LABS: Appearance,Urine Clear (Clear); Bilirubin,Urine Negative (Negative); Blood,Urine Negative (Negative); Color,Urine Colorless; Glucose,Urine (UA) Negative (Negative); Ketones,Urine Negative (Negative); Leukocyte Esterase,Urine Negative (Negative); Nitrite,Urine Negative (Negative); PH, Urine 6.5 (5.0-8.0); Protein,Urine Negative (Negative); Specific Gravity,Urine 1.003 (1.001-1.035); Urobilinogen,Urine <2.0 mg/dL (<2.0)
[2024-08-23 18:27] VITALS: RESP 18
--- NOTE | 2024-08-23 18:42 | CT ---
EXAMINATION TYPE: CT abdomen pelvis w con DATE OF EXAM: 08/23/2024 6:23 PM COMPARISON: Prior CT abdomen/pelvis study 02/23/2024 CLINICAL INDICATION: Female, 38 years old with history of GI bleed, lower abdominal pain; abdominal p ain, blood in stool TECHNIQUE: Axial CT abdomen pelvis w con;Sagittal and coronal reformats were created on a separate w orkstation. Contrast used:100 ml mL of Isovue 300 with IV Contrast, (none if empty) Oral contrast used: without Oral Contrast (none if empty) CT DLP: 1944.9 mGycm, Automated exposure control for dose reduction was used. FINDINGS: LOWER CHEST: Unremarkable ABDOMEN LIVER: Unremarkable GALLBLADDER AND BILE DUCTS: Unremarkable. PANCREAS: Unremarkable. SPLEEN: Unremarkable. ADRENAL GLANDS: Unremarkable. KIDNEYS AND URETERS: Small 4 mm nonspecific calculus in the inferior right kidney. No evidence of hyd ronephrosis bilaterally. No evidence of left-sided nephrolithiasis. No enhancing renal mass. PELVIS BLADDER: No evidence for wall thickening or mass given limitations of exam. REPRODUCTIVE: Unremarkable. ABDOMEN & PELVIS STOMACH AND BOWEL: Evaluation of the gastrointestinal tract demonstrates no evidence of high density hemorrhage arterial phase or pooling of blood on delayed phases. No evidence of bowel obstruction. PERITONEUM/RETROPERITONEUM: No evidence of pneumoperitoneum or free fluid. VASCULATURE: No evidence of aortic aneurysm. MUSCULOSKELETAL: No acute osseous abnormalities LYMPH NODES: No gross evidence for lymphadenopathy. SOFT TISSUE/ABDOMINAL WALL: Unremarkable IMPRESSION: 1. No acute abnormality in the abdomen/pelvis. Specifically, no evidence of active upper or lower ga strointestinal bleeding. 2. Nonacute findings as above. [facility], , 08/23/2024 6:40 PM
[2024-08-23 19:58] VITALS: BP 130/76; PULSE 72; TEMP 98
== END 2024-08-23 20:08 | disposition home or self-care (01) ==
LOC: EC 10:43
DX: K92.2 Gastrointestinal hemorrhage, unspecified (principal); F17.290 Nicotine dependence, other tobacco product, uncomplicated
CPT/HCPCS: 36415; 80053; 82150; 83605; 83690; 85025; 81003; 81025; 74177; 99284; Q9967